=== PATIENT | female | born 1970 | race Caucasian/White ===

== ENCOUNTER 2024-03-20 15:41 | Outpatient (CLI) | payer OTHER, SELFPAY ==
--- NOTE | ~2024-03-20 | MR_ITS ---
EXAMINATION: MR foot LT wo con DATE: 03/20/2024 16:29 INDICATION: Left foot pain TECHNIQUE: Magnetic resonance imaging (MRI) of the left fore/mid foot was performed without intraveno us contrast. Sequences included sagittal T1-weighted FSE, sagittal fluid sensitive FSE STIR, coronal PD-weighted FS FSE, coronal T1-weighted FSE, axial PD-weighted FS FSE, and axial PD-weighted FSE. COMPARISON: None FINDINGS: 25 degrees hallux valgus. Alignment is otherwise normal. Chronic osteotomy/bunionectomy at the medial head of the first metatarsal with scarring and a few foci of susceptibility artifact in the overlyin g soft tissues. Bone marrow signal is normal with no fracture or pathologic marrow replacing process. Mild osteoarthritis at the first metatarsophalangeal joint with subarticular cystic change along its articulation with the tibial sesamoid. There is mild thickening and increased signal of the medial c ollateral ligament complex at the second metatarsophalangeal joint. There is also a tear of the plant ar plate at the base of the second proximal phalanx. There is mild surrounding soft tissue edema. Rem aining plantar plates and the collateral ligament complex at the third-fifth metatarsophalangeal join ts and at the interphalangeal joints are normal. The flexor and extensor tendons are normal. No joint effusions, tenosynovitis, bursitis or other abnormal fluid collections. Intrinsic musculature of the foot is unremarkable. IMPRESSION: 1. Tear of the plantar plate at the base of the second metatarsal and partial tear of the medial ever ateral ligament complex at the second metatarsophalangeal joint. 2. 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 Reviewed, dictated and finalized at location A. IMPRESSION: 1. Tear of the plantar plate at the base of the second metatarsal and partial t ear of the medial collateral ligament complex at the second metatarsophalangeal joint. 2. 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
== END 2024-03-20 15:42 | disposition home or self-care (01) ==
PROVIDERS: PCP Internal Medicine; Visit Provider Podiatrist Foot & Ankle Surgery
DX: M20.12 Hallux valgus (acquired), left foot (principal); S93.692A Other sprain of left foot, initial encounter; X58.XXXA Exposure to other specified factors, initial encounter
CPT/HCPCS: 73718

== ENCOUNTER 2024-12-12 14:17 | Outpatient (CLI) | payer OTHER, SELFPAY ==
[2024-12-12 15:40] LABS: Basophils Percent Auto 0.3 % (0.2-1.2); Eosinophils Absolute Auto 0.1 K/mm3 (0-0.3); Hematocrit 37.3 % (37.0-47.0); Hemoglobin 12.2 g/dL (12.0-15.0); Immature Granulocyte Absolute 0.02 K/mm3 (0.00-0.031); Immature Granulocyte Percent A 0.3 % (0-0.5); Lymphocytes Absolute Auto 2.06 K/mm3 (0.9-3.2); Lymphocytes Percent Auto 35.9 % (18.3-44.2); Mean Corpuscular HGB Conc 32.7 g/dl (32-36); Mean Corpuscular Hemoglobin 28.2 pg (26-34); Mean Corpuscular Volume 86.1 fl (80-100); Mean Platelet Volume 10.3 fl (7.4-10.4); Monocytes Absolute Auto 0.5 K/mm3 (0.1-0.6); Monocytes Percent Auto 8.2 % (2.6-8.5); Neutrophils Absolute Auto 3.1 K/mm3 (1.3-6.7); Neutrophils Percent Auto 54.3 % (45.5-73.1); Platelet Count Result 208 k/mm3 (150-375); Red Blood Count 4.33 M/mm3 (4.2-5.4); White Blood Count 5.7 K/mm3 (4.5-10.0)
[2024-12-12 16:12] LABS: Alanine Aminotransferase 20 U/L (6-35); Albumin Level 3.9 g/dL (3.5-5.1); Alkaline Phosphatase 80 U/L (38-126); Anion Gap 10 mmol/L (4-12); Aspartate Amino Transferase 24 U/L (14-36); Bilirubin,Total 1.3 mg/dL (0.2-1.3); Blood Urea Nitrogen 14 mg/dL (7-17); Carbon Dioxide 25 mmol/L (22-30); Chloride 103 mmol/L (98-107); Cholesterol 115 mg/dL (0-200); Estimated Glomerular Filt Rate > 60; Glucose 158 mg/dL (65-110); HDL Direct 42 mg/dL; Potassium 3.7 mmol/L (3.4-5.0); Sodium 138 mmol/L (137-145); Triglycerides 505 mg/dL (<150)
--- OUTSIDE RECORDS SUMMARY | 2024-12-12 16:15 | XMS_ITS | Clinical Summary ---
Author Organization [facility] Address [address] [place] [address] Phone Care Team Providers Care Hairspring Truing Inspector Name Role Phone MARILU ELIAS D.O Unavailable [phone] Reason for Visit and Chief Complaint CHART UPDATE Plan of Treatment No Plan of Treatment Recorded Assessments Includes: Assessments from this encounter No Assessments Recorded Medical Equipment - Implanted Devices Includes: Current Devices No Medical Equipment Recorded Medications Includes: Medications discussed during this encounter and other current Medications Current Medications (continue as prescribed) Singulair 10 MG OR TABS 02/17/2011 Provider: Diagnosis: Last Documented On 02/17/2011 9:51AM By EDUARDO STAFFORD ; [facility] Past Medications on file Ortho-Cyclen (28) 0.25-35 MG-MCG OR TABS 02/17/2011 - 05/18/2011 Provider: SANAM NEVAREZ NP-BC Diagnosis: Last Documented On 1 10:04AM By SANAM COBB RANI- ; [facility] Ibuprofen 800 MG OR TABS 02/17/2011 - 03/19/2011 Provi shelia: SANAM BLOCK-BC Diagnosis: Last Documented On 1 10:04AM By SANAM COBB CALVIN ; [facility] Ortho-Cyclen (28) 0.25-35 MG-MCG OR TABS 02/11/2010 - 02/06/2011 Provider: SANAM NEVAREZ NP-BC Diagnosis: Last Documented On 0 11:04AM By SANAM COBB CALVIN ; [facility] Medications Administered Includes: Administered Medications from this encounter No Administered Medications Recorded Results Includes: Results discussed during this encounter No Results Recorded For Specified Dates History of Present Illness Includes: History of Present Illness from this encounter ELISEO CORTES is a 39 year old female. 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 [employer] 10/22/2009 Last Documented On 0 10:18AM ; [facility] [facility] Sexually active with 1 partners in the l ast year 10/22/2009 Last Documented On 0 10:18AM ; [facility] Alcohol 10/22/2009 Last Documented On 0 10:18AM ; [facility] Caffeine use 10/22/2009 Last Documented On 0 10:18AM ; [facility] Daily tea consumption was four cups per day 10/22/2009 Last Documented On 0 10:18AM ; [facility] Drug use by a sexual partner does not in clude intravenous drug use 10/22/2009 Last Documented On 0 10:18AM ; [facility] Educational level: grade 10/22/2009 Last Documented On 0 10:18AM ; [facility] [employer] [facility] In grade 13-16 (college) 10/22/2009 Last Documented On 0 10:18AM ; [facility] Marital history 10/22/2009 Last Documented On 0 10:18AM ; [facility] Partner has not had a STD in the past ye ar 10/22/2009 Last Documented On 0 10:18AM ; [facility] Patient does not report having sex when she didn't want to 10/22/2009 Last Documented On 0 10:18AM ; [facility] Patient has not had sex unde r the influence of alcohol or drugs in the last year 10/22/2009 Last Documented On 0 10:18AM ; [facility] Sexual history : painful intercourse Last Documented On 0 10:18AM ; [facility] Sexual partner has not had o ther partners while in relationship with patient 10/22/2009 Last Documented On 0 10:18AM ; [facility] Sexual partner has not had sex with pros titutes 10/22/2009 Last Documented On 0 10:18AM ; [facility] Sexually active 10/22/2009 Last Documented On 0 10:18AM ; [facility] The racial background 10/22/2009 Last Documented On 0 10:18AM ; [facility] The racial background is 10/22 Last Documented On 0 10:18AM ; [facility] Using condoms 10/22/2009 Last Documented On 0 10:18AM ; [facility] Smoking Status Unknown Procedures and Surgical History Includes: Procedures from this encounter Procedures Code Diagnosis Performing Provider Service L ocation Service Date history of hepatitis B vaccine Last Documented On 0 10:18AM ; [facility] Medical History Includes: Medical History addressed during this encounter Description Last Updated LMP: 200810/22/2009 Last Documented On 0 10:18AM ; [facility] A breast self-exam was performed 010 Last Documented On 0 10:18AM ; [facility] A Pap smear was performed 10/22/2009 Last Documented On 0 10:18AM ; [facility] An HIV test was not performed 10/22/2009 Last Documented On 0 10:18AM ; [facility] Chlamydia 10/22/2009 Last Documented On 0 10:18AM ; [facility] Last pap smear date 200810/22/2009 Last Documented On 0 10:18AM ; [facility] Oral contraceptives 10/22/2009 Last Documented On 0 10:18AM ; [facility] Previous hospitalizations [facility]GERY IN 1998,POLYPECTOMY FROM UTERUS IN 200310/22/2009 Last Documented On 0 10:18AM ; [facility] Previously diagnosed with a STD 10/22/19 10 Last Documented On 0 10:18AM ; [facility] Taking OTC medications ASPIRIN 0 Last Documented On 0 10:18AM ; [facility] Family History Includes: Family History addressed during this encounter Description Last Updated Family history of Diabetes 10/22/2009 Last Documented On 0 10:18AM ; [facility] Review of Systems Includes: Review of Systems from this encounter No Review of Systems Recorded Mental Status Includes: Mental Status from this encounter No Mental Status Recorded Functional Status Includes: Functional Status from this encounter No Functional Status Recorded Physical Exam Includes: Physical Exam from this encounter No Physical Exam Recorded Allergies Includes: Active Allergies No Known Allergies Encounters Encounter Provider Location Date Check-In Time Check-Out Time Diagnosis CHART UPDATE SANAM COBB [facility] EMBEDDED PROCESSOR 0 10:08AM 11:59PM Clinical Notes Includes: Clinical Notes from this encounter No Clinical Notes Recorded
--- OUTSIDE RECORDS SUMMARY | 2024-12-12 16:15 | XMS_ITS | Clinical Summary ---
Author Organization [facility] Address [address] [place] [id number] Care Team Providers Care Online Producer Name Role Phone Lewis Santillan DO Primary Care Provider [phone] Allergies No known active allergies Medications atorvastatin 20 MG tablet Take 1 tablet by mouth daily. 3 02/03/2019 Active metFORMIN 500 MG tablet Take 500 mg by mouth 2 (two) times daily with meals. Active omega-3 fatty acid 500 MG capsule Take 500 mg by mouth 2 (two) times a day. 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 02/15/2019 Family History Medical History Relation Comments Cancer Father prostate Cancer Maternal Aunt breast Diabetes Maternal Aunt Cancer Maternal Grandmother lung Diabetes Mother Relation Status Comments Father Maternal Aunt Maternal Grandmother Mother Social History Tobacco Use Types Packs/Day Years Used Date Smoking Tobacco: Never Smokeless Tobacco: Never Alcohol Use Standard Drinks/Week Comments No 0 (1 standard drink = 0.6 oz pur e alcohol) AUDIT-C Answer Date Recorded Frequency of Alcohol Consumption Never 04/01/2019 Average Number of Drinks Not on file 019 Frequency of Binge Drinking Not on file 10/2018 Comments Unknown Sex and Gender Information Value Date Recorded Sex Assigned at Not on file Legal Sex Female 7:17 PM CDT Gender Identity Not on file Sexual Orientation Not on file Last Filed Vital Signs Vital Sign Reading Time Taken Comments Blood Pressure 128/82 02/15/2019 1:07 PM CDT Pulse 79 02/15/2019 1:07 PM CDT Temperature 36.9 C (98.5 F) 02/15/2019 1:07 PM CDT Respiratory Rate 16 02/15/2019 1:07 PM CDT Oxygen Saturation 98% 02/15/2019 1:07 PM CDT Inhaled Oxygen Concentration - - Weight 78.9 kg (174 lb) 02/15/2019 1:07 PM CDT Height 152.4 cm (5') 02/15/2019 1:07 PM CDT Body Mass Index 33.98 02/15/2019 1:07 PM CDT Plan of Treatment Health Maintenance Due Date Last Done Comments Colorectal Cancer Screening Colonoscopy (10 Years) 1968 Annual Physical 1971 Diabetes: Retinopathy Eye Exam 1986 Hepatitis C 1986 DTaP, Tdap and Td Vaccines (1 - Tdap) 1987 Hepatitis B Vaccines (1 of 3 - 19+ 3-dose series) 1987 Mammogram Screening 2008 Pneumococcal Vaccine: Pediatrics (0 to 5 Years) and At-Risk Patients (6 to 64 Years) (2 of 2 - PCV) 06/09/2019 06/09/2018 COVID-19 Vaccine ( - season) 2024 08/17/2021, 01/13/2021, 12/23/2020 Influenza Adult (#1) 2024 06/30/2020, 06/09/20 18 Hemoglobin A1C 07/06/2024 01/05/2024, 04/02, 02/24/2018, Additional history exists Kidney Health Evaluation 01/04/2025 01/05/2024 Lipid Panel 01/04/2025 01/05/2024, 04/0 01/2024, 04/23/2022, Additional history exists Zoster Vaccines Completed 11/28/2020, 06/30/2020 Meningococcal B Vaccine Aged Out No l onger eligible based on patient's age to complete this topic Meningococcal Vaccine Aged Out No beverly diana eligible based on patient's age to complete this topic RSV Immunizations Under 20 Months Aged Out No longer eligible based on patient's age to complete this topic Procedures Procedure Name Priority Date/Time Associated Diagnosis Comments LIPOPROTEIN, LDL CHOL, DIRECT Routine 01/05/2024 2:01 PM CDT HEMOGLOBIN, GLYCOSYLATED Routine 01/05/2024 2:01 PM CDT Type 2 diabetes mellitus without complication from Last 3 Months or Most Recently Relevant to Health Maintenance Results * (ABNORMAL) HEMOGLOBIN, GLYCOSYLATED (01/05/2024 2:01 PM CDT) HGB A1C 6.4(H) <5.7 % 01/05/2024 6:03 PM CDT [facility] Comment: INCREASED RISK OF DIABETES <5.7% NON-DIABETES 5.7-6.4% INCREASED RISK FOR FUTURE DIABETES > OR = 6.5 CONSISTENT WITH DIABETES STANDARDS OF MEDICAL CARE IN DIABETES-2010 DIABETES CARE, 33(SUPP 1): S1-S61,2010 ESTIMATED AVG GLUCOSE 137 mg/dL 01/05/2024 6:03 PM CDT [facility] 01/05/2024 2:01 PM CDT us Lewis Santillan MD LABORATORY Final Result Performing Organization Address City/[facility] Co de Phone Number [facility] [address] [place] [address], [place] [phone] * LIPOPROTEIN, LDL CHOL, DIRECT (01/05/2024 2:01 PM CDT) DIRECT LDL 37 <100 MG/DL 01/05/2024 4:05 PM CDT [facility] Comment: LDL OPTIMAL <100 LDL NEAR OPTIMAL 100-129 LDL BORDERLINE HIGH 130-159 LDL HIGH 160-189 LDL VERY HIGH >=190 01/05/2024 2:01 PM CDT us Lewis Santillan MD LABORATORY Final Result Performing Organization Address City/[facility]/ZIP Co de Phone Number [facility] [address] [place] [address], [place] [phone] from Last 3 Months or Most Recently Relevant to Health Maintenance Insurance [facility] Care Teams Online Producer Relationship Specialty Start Date End Date Lewsi Santillan DO [address] [place] [address] PCP - General FAMILY PRACTICE 02/07/19
--- OUTSIDE RECORDS SUMMARY | 2024-12-12 16:15 | XMS_ITS | Clinical Summary ---
Author Organization [facility] Address [address] [place] [address] Phone Care Team Providers Care Terminal Clerk Name Role Phone MARILU ELIAS D.O Unavailable [phone] Reason for Visit and Chief Complaint gynecologic annual exam - The Chief Complaint is: ANNUAL Plan of Treatment - OTHER - Last Documented On 02/11/2010 11:05AM ; [facility] Follow-up 1 year/prn Ortho-Cyclen (28) 0.25-35 MG-MCG TABS, 1 daily, 90 days, 3 refills - Last Documented On 02/11/2010 11:05AM ; [facility] ? SCREEN MAMMOGRAM NECRadiology/*MAMMOGRAM: Mammogram - Last Documented On 02/11/2010 11:05AM ; [facility] ? Cervical Pap SmearIn office procedures/*Clia Waived Labs: Pap Smear Taken - Last Documented On 02/11/2010 11:05AM ; [facility] ? SCREEN MAL NEOP-RECTUMIn office procedures/*Clia Waived Labs: *FIT Test (Fecal Occult Test) - Last Documented On 02/11/2010 11:05AM ; [facility] - Follow-up visit 1 year or as needed - Last Documented On 02/11/2010 11:05AM ; [facility] Pt to get fasting lipid profile at lab in [place] - rx given. - Last Documented On 02/11/2010 11:05AM ; [facility] Pending Tests Order Diagnosis Results Due Ordering P rovider In office procedures - *Clia Waived Labs Pap Smear Taken SCREEN MAL NEOP-CERVIX 02/25/10 SANAM BLOCK-BC Last Documented On 0 11:04AM ; [facility] In office procedures - *Clia Waived Labs *FIT Test (Fecal Occult Test) SCREEN MAL NEOP-RECTUM 02/25/10 SANAM COBB WHNP-BC Last Documented On 0 11:04AM ; [facility] Radiology @ other - *MAMMOGRAPHY Mammogram SCREEN MAMMOGRAM NEC 02/25/10 SANAMAMBROSIO KIM JEAN WHNP-BC Last Documented On 0 11:06AM ; [facility] Instructions to patient Instructions for patient : B reast Self Exam discussed Last Documented On 0 10:42AM ; [facility] Lose weight Last Documented On 0 10:53AM ; [facility] Education and Decision Aids were provided during visit for: Patient Education: Daily jose cium and vitamin D Last Documented On 0 10:42AM ; [facility] Patient Education: weight be aring exercise Last Documented On 0 10:53AM ; [facility] Assessments Includes: Assessments from this encounter Findings - Normal routine history and physical - Last Documented On 02/11/2010 11:05AM ; [facility] - Routine pelvic exam - Last Documented On 02/11/2010 11:05AM ; [facility] - Screening Malig. Neoplasm Rectum - Last Documented On 02/11/2010 11:05AM ; [facility] Instructions Includes: Instructions from this encounter Instructions to patient Instructions for patient : B reast Self Exam discussed Last Documented On 0 10:42AM ; [facility] Lose weight Last Documented On 0 10:53AM ; [facility] Education and Decision Aids were provided during visit for: Patient Education: Daily jose cium and vitamin D Last Documented On 0 10:42AM ; [facility] Patient Education: weight be aring exercise Last Documented On 0 10:53AM ; [facility] Medical Equipment - Implanted Devices Includes: Current Devices No Medical Equipment Recorded Medications Includes: Medications discussed during this encounter and other current Medications New / Renewed during this visit SANAM COBB NP-BC on 02/11/2010 Ortho-Cyclen (28) 0.25-35 MG-MCG OR TABS Provider: SANAM GARDNERB C 90 day supply: 90, 3 refills Diagnosis: Pharmacy: [facility] - [id number] [place], [address] - Last Documented On 0 11:04AM By SANAM GROVE ; [facility] Current Medications (continue as prescribed) Singulair 10 MG OR TABS 02/17/2011 Provider: Diagnosis: Last Documented On 02/17/2011 9:51AM By EDUARDO STAFFORD ; [facility] Past Medications on file Ortho-Cyclen (28) 0.25-35 MG-MCG OR TABS 02/17/2011 - 05/18/2011 Provider: SANAM SIMPSON Diagnosis: Last Documented On 1 10:04AM By SANAM GROVE ; [facility] Ibuprofen 800 MG OR TABS 02/17/2011 - 03/19/2011 Provi shelia: SANAM GROVE Diagnosis: Last Documented On 1 10:04AM By SANAM GROVE ; [facility] Medications Administered Includes: Administered Medications from this encounter No Administered Medications Recorded Vital Signs Includes: Vital Signs from this encounter Vital Name 02/11/2010 10:30A Blood Pressure Sitting R 122/70 Height (in) 59.5 Weight (lb) 182 Body Mass Index (kg/m2) 36.1 Body Surface Area (m2) 1.8 Last Documented: On 02/11/2010 10:44A M ; [facility] Results Includes: Results discussed during this encounter No Results Recorded For Specified Dates History of Present Illness Includes: History of Present Illness from this encounter ELISEO CORTES is a 39 year old female. - Feeling fine. - Perimenopausal concerns very emotional et michael very easy - No female genital symptoms - No vaginal dryness - Normal menses - No menopausal concerns - No reproductive system complaints - No vaginal discharge - No hot flashes - No sexual complaints Social History Description Last Updated Non-smoker 02/11/2010 Last Documented On 0 11:05AM ; [facility] Not sexually active 02/11/2010 Last Documented On 0 11:05AM ; [facility] Social history unchanged got Last Documented On 0 11:05AM ; [facility] Smoking Status Unknown Procedures and Surgical History Includes: Procedures from this encounter Procedures Code Diagnosis Performing Provider Service L ocation Service Date cervical Pap smear 86620 Last Documented On 0 10:42AM ; [facility] a fecal occult blood test was negative 65020 Last Documented On 0 10:42AM ; [facility] history of abnormal Pap smear of cervix Long time ago Last Documented On 0 10:49AM ; [facility] Surgical History Last Updated No history of appendectomy 02/11/2010 Last Documented On 0 11:05AM ; [facility] No history of cholecystectomy 02/11/2010 Last Documented On 0 11:05AM ; [facility] No history of Loop electrode excision of cervix (LEEP) 02/11/2010 Last Documented On 0 11:05AM ; [facility] No history of total abdominal hysterecto my 02/11/2010 Last Documented On 0 11:05AM ; [facility] No history of tubal ligation 02/11/2010 Last Documented On 0 11:05AM ; [facility] No history of vaginal hysterectomy 02/11 Last Documented On 0 11:05AM ; [facility] Medical History Includes: Medical History addressed during this encounter Description Last Updated Contraception: mononessa 02/11/2010 Last Documented On 0 11:05AM ; [facility] History of allergic rhinitis 02/11/2010 Last Documented On 0 11:05AM ; [facility] History of cervical dysplasia 02/11/2010 Last Documented On 0 11:05AM ; [facility] LMP: 01/31/2010 02/11/2010 Last Documented On 0 11:05AM ; [facility] No history of dysfunctional uterine blee ding 02/11/2010 Last Documented On 0 11:05AM ; [facility] No history of human papilloma virus infe ction 02/11/2010 Last Documented On 0 11:05AM ; [facility] No history of urinary tract infection Last Documented On 0 11:05AM ; [facility] No history of vaginitis 02/11/2010 Last Documented On 0 11:05AM ; [facility] Recent change in medical history 010 Last Documented On 0 11:05AM ; [facility] Last mammogram date: 02/16/2009 0 Last Documented On 0 11:05AM ; [facility] Last pap smear date 02/10/2009 02/11/2010 Last Documented On 0 11:05AM ; [facility] Result: normal 02/11/2010 Last Documented On 0 11:05AM ; [facility] Result: normal 02/11/2010 Last Documented On 0 11:05AM ; [facility] Family History Includes: Family History addressed during this encounter Description Last Updated Family history changed 02/11/2010 Last Documented On 0 11:05AM ; [facility] Family history of diabetes mellitus moth er 02/11/2010 Last Documented On 0 11:05AM ; [facility] Family history of malignant neoplasm of the large intestine father 02/11/2010 Last Documented On 0 11:05AM ; [facility] No family history of malignant female br east neoplasm 02/11/2010 Last Documented On 0 11:05AM ; [facility] No family history of malignant neoplasm of the ovary 02/11/2010 Last Documented On 0 11:05AM ; [facility] Review of Systems Includes: Review of Systems from this encounter Systemic: Not feeling poorly (malaise). No fever, no chills, no night sweats, and no recent weight change. Breasts: No breast lump, no nipple discharge, and no pain in breast. Genitourinary: No hematuria and no increase in urinary frequency. No dysuria. No genital lesion and normal menses. Mental Status Includes: Mental Status from this encounter No Mental Status Recorded Functional Status Includes: Functional Status from this encounter No Functional Status Recorded Physical Exam Includes: Physical Exam from this encounter Allergies Includes: Active Allergies No Known Allergies Encounters Encounter Provider Location Date Check-In Time Check-Out Time Diagnosis [employer] EXAM SANAM COBB [facility] [employer] 0 10:35AM 11:05AM Routine History and Physical,Scre ening Julien. Neoplasm Rectum,Routin e Pelvic Exam Clinical Notes Includes: Clinical Notes from this encounter No Clinical Notes Recorded
--- OUTSIDE RECORDS SUMMARY | 2024-12-12 16:15 | XMS_ITS | Data Portability ---
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 [employer] variances may occur. Despite proofreading, typographical errors may occur. Occasional wrong-word or s ound-a-like substitutions may have occurred due to the inherent limitations of voice recording. Read the chart carefully and recognize, using context, where substitutions have occurred. Not available 09/20/2023 12:25:10 03/11/2024 03/11/2024 This note is dictated and transcribed by [employer]. [employer] variances may occur. Despite proofreading, typographical errors may occur. Occasional wrong-word or 'sqjwl-f-djcx' substitutions may have occurred due to the inherent limitations of voice recording. Read the chart carefully and recognize, using context, where substitutions have occurred. Not available 03/11/2024 16:39:15 Plan of Treatment Reminders Order Date Submit Date Provider Last Modified By Organization Details Last Modified Time Details Appointments None recorded. Lab glycohemogl obin, total, blood 2022 023 [facility] (Lab), [address] [place], [address], 3 15:10:17 CMP, serum or plasma 2022 023 [facility] (Lab), [address] [place], [address], 3 11:22:24 lipid panel, serum 2022 023 [facility] (Lab), [address] [place], [address], 3 11:22:29 Referral None recorded. Procedures None recorded. Surgeries None recorded. Imaging XR, foot, 3 or more view 2023 024 [facility], [address], [place], [address], 4 14:46:50 MRI, foot, w/o contrast - pain sub 2nd met head and MTPJ [address] [facility], [address], [place], [address], 4 19:39:36 XR, foot, 3 or more view 2022 023 [facility] [place], [address], [place], [address], 3 12:29:15 XR, foot, 3 or more view 2022 023 [facility] [place], [address], [place], [address], 3 12:29:15 Medication Orders diclofenac sodium 75 mg tablet,zeeshan yed release 2023 024 [facility], [address] [place] [address], [address], [place], [place], [id number], 4 17:22:08 diclofenac sodium 75 mg tablet,zeeshan yed release 2022 023 [facility], [address], [address], [place], [place], [id number], 3 18:33:57 Patient TargetsNo targets recorded. Patient InstructionsNo instructions recorded. Reason for Referral None Reported. Results Created Date Observation Date Name Description Value Unit Range Abnormal Flag Note LastModifiedBy Organization Detail LastModifiedTime 11/17/1911/17/2022 HEMOG LOBIN A1C HA1C 6.0 % 4.0-6. 0 Diabe alejandra Scree kuldeep Crite kerrie: <5.7% Consi stent with absen ce of diabe alejandra 5.7-6 .4% Consi stent with incre ased risk for diabe alejandra (pred iabet es) >OR=6 .5% Consi stent with diabe alejandra REFER ENCE: Diabe alejandra Care 2016, 39(Henao ppl.1 ):s13 -s22 Not Available [facility] (Lab) [address] [place], [address], 11/17/2022 18:37:29 11/17/19 23 11/17/2022 COMPR EHENS ELYSIA METAB OLIC PANEL carbon dioxide 27 mmol/ L 22-[address] [facility] (Lab) [address] [place], [address], 11/17/2022 13:24:33 11/17/19 23 11/17/2022 COMPR EHENS ELYSIA METAB OLIC PANEL sodium 138 mmol/ L 137-[address] [facility] (Lab) [address] [place], [address], 11/17/2022 13:24:33 11/17/19 23 11/17/2022 COMPR EHENS ELYSIA METAB OLIC PANEL potassium 3.8 mmol/ L 3.5-5. [address] [facility] (Lab) [address] [place], [address], 11/17/2022 13:24:33 11/17/19 23 11/17/2022 COMPR EHENS ELYSIA METAB OLIC PANEL chloride 101 mmol/ L 98-[address] [facility] (Lab) [address] [place], [address], 11/17/2022 13:24:33 11/17/19 23 11/17/2022 COMPR EHENS ELYSIA METAB OLIC PANEL anion gap 13.8 mmol/ L 14-22 low Not Available [facility] (Lab) [address] [place], [address], 11/17/2022 13:24:33 11/17/19 23 11/17/2022 COMPR EHENS ELYSIA METAB OLIC PANEL glucose 105 mg/dL 70-99 high Not Available [facility] (Lab) [address] [place], [address], 11/17/2022 13:24:33 11/17/19 23 11/17/2022 COMPR EHENS ELYSIA METAB OLIC PANEL BUN 13 mg/dL 8-[address] [facility] (Lab) [address] [place], [address], 11/17/2022 13:24:33 11/17/19 23 11/17/2022 COMPR EHENS ELYSIA METAB OLIC PANEL creatinine 0.48 mg/dL 0.66-1 .25 low Not Available [facility] (Lab) [address] [place], [address], 11/17/2022 13:24:33 11/17/19 23 11/17/2022 COMPR EHENS ELYSIA METAB OLIC PANEL GFR >60 Refer ence Range : Black ge GFR Healt hy Adult : >60 mL/mi n/1.7 3 m2 Chron ic Kidne y Disea se: 15-60 mL/mi n/1.7 3 m2 Kidne y Failu re: <15/m L/min /1.73 m2 www.n iddk. nih.g ov The MDRD study equat ion has not been valid ated in child reina <18 years of age; pregn ant women ; the elder ly >85 years of age; or in some racia l or ethni c subgr oups, such as Hispa nics. Outsi de the valid ated andrew eters , estim ated GFR is less accur ate, requi ring clini jose judgm ent on a case- by-ca se basis . Clini jose inter preta tion for other races and ages must be made by the clini kandice. The MDRD study equat ion has not been valid ated for the evalu ation of serum creat inine relat ed to nutri ada l statu s or medic ation usage . For perso ns <18 years of age, a pedia tric GFR calcu lator is avail able on the [facility] websi te: https ://ainsley camargo.alice jarvis.o rg/pr ofess ional s/kdo qi/gf r_cal culat or Not Available [facility] (Lab) [address] [place], [address], 11/17/2022 13:24:33 11/17/19 23 11/17/2022 COMPR EHENS ELYSIA METAB OLIC PANEL alkaline phosphatase 81 U/L 38-126 Not Available [facility] (Lab) [address] [place], [address], 11/17/2022 13:24:33 11/17/19 23 11/17/2022 COMPR EHENS ELYSIA METAB OLIC PANEL alanine aminotransfe rase 28 U/L 0-35 Not Available [facility] (Lab) [address] [place], [address], 11/17/2022 13:24:33 11/17/19 23 11/17/2022 COMPR EHENS ELYSIA METAB OLIC PANEL aspartate aminotransfe rase 30 U/L 15-37 Not Available [facility] (Lab) [address] [place], [address], 11/17/2022 13:24:33 11/17/19 23 11/17/2022 COMPR EHENS ELYSIA METAB OLIC PANEL bilirubin, total 2.10 mg/dL 0.20-1 .30 high Not Available [facility] (Lab) [address] [place], [address], 11/17/2022 13:24:33 11/17/19 23 11/17/2022 COMPR EHENS ELYSIA METAB OLIC PANEL calcium 9.1 mg/dL 8.4-10 .[address] [facility] (Lab) [address] [place], [address], 11/17/2022 13:24:33 11/17/19 23 11/17/2022 COMPR EHENS ELYSIA METAB OLIC PANEL total protein 6.8 g/dL 6.3-8. [address] [facility] (Lab) [address] [place], [address], 11/17/2022 13:24:33 11/17/19 23 11/17/2022 COMPR EHENS ELYSIA METAB OLIC PANEL albumin 4.3 g/dL 3.4-5. [address] [facility] (Lab) [address] [place], [address], 11/17/2022 13:24:33 11/17/19 23 11/17/2022 COMPR EHENS ELYSIA METAB OLIC PANEL globulin 2.5 g/dL 2.6-4. 2 low Not Available [facility] (Lab) [address] [place], [address], 11/17/2022 13:24:33 11/17/19 23 11/17/2022 COMPR EHENS ELYSIA METAB OLIC PANEL A/G ratio 1.7 ratio 1.0-2. [address] [facility] (Lab) [address] [place], [address], 11/17/2022 13:24:33 11/17/19 23 11/17/2022 LIPID PANEL LDL cholesterol, calculated 26 mg/dL 0-130 NIH ALEX NSUS REPOR T RECOM MENDA TIONS FOR LDL: ADULT CHILD LOW RISK <130 <110 (OPTI MAL LDL) <100 ----- BORDE RLINE : 130-1 59 ----- HIGH RISK: >160 >130 A TRIGL YCERI DE RESUL T >400 INVAL IDATE S THE CALCU LATIO N FOR LDL FRACT IONAT ION - THE LDL RESUL T WILL NOT BE REPOR EMILIE. Not Available [facility] (Lab) [address] [place], [address], 11/17/2022 13:24:22 11/17/19 23 11/17/2022 LIPID PANEL cholesterol 113 mg/dL 140-19 9 low NIH ALEX NSUS RECOM MENDA TION FOR JACKY STERO L: ADULT CHILD LOW RISK: <200 <170 BORDE RLINE : <200- 239 ----- HIGH RISK: >240 >[address] [facility] (Lab) [address] [place], [address], 11/17/2022 13:24:22 11/17/19 23 11/17/2022 LIPID PANEL triglyceride s 237 mg/dL 0-150 high NIH ALEX NSUS REPOR T RECOM MENDA TION FOR TRIGL YCERI DESIREE: ADULT CHILD LOW RISK: <150 ----- BODER LINE: 150-1 99 ----- HIGH RISK: >200 ----- Not Available [facility] (Lab) [address] [place], [address], 11/17/2022 13:24:22 11/17/19 23 11/17/2022 LIPID PANEL HDL cholesterol 40 mg/dL 40- Not Available [facility] (Lab) [address] [place], [address], 11/17/2022 13:24:22 11/17/19 23 11/17/2022 CBC/C OMPLE TE BLD COUNT W/DIF F mean red cell hemoglobin 28.6 pg 27.0-3 3.[address] [facility] (Lab) [address] [place], [address], 11/17/2022 12:56:18 11/17/19 23 11/17/2022 CBC/C OMPLE TE BLD COUNT W/DIF F white blood cells 6.2 x10'3 /uL 4.2-10 .[address] [facility] (Lab) [address] [place], [address], 11/17/2022 12:56:18 11/17/19 23 11/17/2022 CBC/C OMPLE TE BLD COUNT W/DIF F red blood cells 4.44 x10'6 /uL 3.80-5 .[address] [facility] (Lab) [address] [place], [address], 11/17/2022 12:56:18 11/17/19 23 11/17/2022 CBC/C OMPLE TE BLD COUNT W/DIF F hemoglobin 12.7 g/dL 12.0-1 5.[address] [facility] (Lab) [address] [place], [address], 11/17/2022 12:56:18 11/17/19 23 11/17/2022 CBC/C OMPLE TE BLD COUNT W/DIF F hematocrit 38.5 % 35.7-4 5.[address] [facility] (Lab) [address] [place], [address], 11/17/2022 12:56:18 11/17/19 23 11/17/2022 CBC/C OMPLE TE BLD COUNT W/DIF F mean red cell volume 86.7 fL 82.0-9 9.[address] [facility] (Lab) [address] [place], [address], 11/17/2022 12:56:18 11/17/19 23 11/17/2022 CBC/C OMPLE TE BLD COUNT W/DIF F mean RBC HGB concentratio n 33.0 g/dL 31.0-3 6.[address] [facility] (Lab) [address] [place], [address], 11/17/2022 12:56:18 11/17/19 23 11/17/2022 CBC/C OMPLE TE BLD COUNT W/DIF F red cell distribution width 12.0 % 11.8-1 5.[address] [facility] (Lab) [address] [place], [address], 11/17/2022 12:56:18 11/17/19 23 11/17/2022 CBC/C OMPLE TE BLD COUNT W/DIF F platelets 192 x10'3 /uL 150-40 [address] [facility] (Lab) [address] [place], [address], 11/17/2022 12:56:18 11/17/19 23 11/17/2022 CBC/C OMPLE TE BLD COUNT W/DIF F mean platelet volume 10.1 fL 9.0-12 .[address] [facility] (Lab) [address] [place], [address], 11/17/2022 12:56:18 11/17/19 23 11/17/2022 CBC/C OMPLE TE BLD COUNT W/DIF F neutrophils 56.9 % 39.0-7 2.[address] [facility] (Lab) [address] [place], [address], 11/17/2022 12:56:18 11/17/19 23 11/17/2022 CBC/C OMPLE TE BLD COUNT W/DIF F lymphocytes 34.8 % 16.0-4 7.[address] [facility] (Lab) [address] [place], [address], 11/17/2022 12:56:18 11/17/19 23 11/17/2022 CBC/C OMPLE TE BLD COUNT W/DIF F monocytes 6.7 % 5.0-12 .[address] [facility] (Lab) [address] [place], [address], 11/17/2022 12:56:18 11/17/19 23 11/17/2022 CBC/C OMPLE TE BLD COUNT W/DIF F eosinophils 1.1 % 1.0-7. [address] [facility] (Lab) [address] [place], [address], 11/17/2022 12:56:18 11/17/19 23 11/17/2022 CBC/C OMPLE TE BLD COUNT W/DIF F basophils 0.3 % 0.0-2. [address] [facility] (Lab) [address] [place], [address], 11/17/2022 12:56:18 11/17/19 23 11/17/2022 CBC/C OMPLE TE BLD COUNT W/DIF F immature granulocytes 0.2 % 0.00-0 .[address] [facility] (Lab) [address] [place], [address], 11/17/2022 12:56:18 11/17/19 23 11/17/2022 CBC/C OMPLE TE BLD COUNT W/DIF F neutrophils, absolute count 3.55 x10'3 /uL 1.5-8. [address] [facility] (Lab) [address] [place], [address], 11/17/2022 12:56:18 11/17/19 23 11/17/2022 CBC/C OMPLE TE BLD COUNT W/DIF F lymphocytes, absolute count 2.17 x10'3 /uL 1.07-3 .[address] [facility] (Lab) [address] [place], [address], 11/17/2022 12:56:18 11/17/19 23 11/17/2022 CBC/C OMPLE TE BLD COUNT W/DIF F monocytes, absolute count 0.42 x10'3 /uL 0.29-0 .[address] [facility] (Lab) [address] [place], [address], 11/17/2022 12:56:18 11/17/19 23 11/17/2022 CBC/C OMPLE TE BLD COUNT W/DIF F eosinophils, absolute count 0.07 x10'3 /uL 0.02-0 .[address] [facility] (Lab) [address] [place], [address], 11/17/2022 12:56:18 11/17/19 23 11/17/2022 CBC/C OMPLE TE BLD COUNT W/DIF F basophils, absolute count 0.02 x10'3 /uL 0.01-0 .[address] [facility] (Lab) [address] [place], [address], 11/17/2022 12:56:18 11/17/19 23 11/17/2022 CBC/C OMPLE TE BLD COUNT W/DIF F immature granulocytes ,absolute 0.01 x10'3 /uL 0.00-0 .[address] [facility] (Lab) [address] [place], [address], 11/17/2022 12:56:18 11/17/19 23 11/17/2022 CBC/C OMPLE TE BLD COUNT W/DIF F nucleated red blood cells 0.0 % -0 Not Available [facility] (Lab) [address] [place], [address], 11/17/2022 12:56:18 11/17/19 23 11/17/2022 CBC/C OMPLE TE BLD COUNT W/DIF F NRBC# 0.00 x10'3 /uL Not Available [facility] (Lab) [address] [place], [address], 11/17/2022 12:56:18 07/22/20 23 07/22/2023 COMPR EHENS ELYSIA METAB OLIC PANEL sodium 137 mmol/ L 137-14 [address] [facility] (Lab) [address] [place], [address], 07/22/2023 11:22:24 07/22/20 23 07/22/2023 COMPR EHENS ELYSIA METAB OLIC PANEL potassium 4.3 mmol/ L 3.5-5. [address] [facility] (Lab) [address] [place], [address], 07/22/2023 11:22:24 07/22/20 23 07/22/2023 COMPR EHENS ELYSIA METAB OLIC PANEL chloride 102 mmol/ L 98-107 Not Available [facility] (Lab) [address] [place], [address], 07/22/2023 11:22:24 07/22/20 23 07/22/2023 COMPR EHENS ELYSIA METAB OLIC PANEL carbon dioxide 27 mmol/ L 22-[address] [facility] (Lab) [address] [place], [address], 07/22/2023 11:22:24 07/22/20 23 07/22/2023 COMPR EHENS ELYSIA METAB OLIC PANEL anion gap 12.3 mmol/ L 14-22 low Not Available [facility] (Lab) [address] [place], [address], 07/22/2023 11:22:24 07/22/20 23 07/22/2023 COMPR EHENS ELYSIA METAB OLIC PANEL glucose 120 mg/dL 70-99 high Not Available [facility] (Lab) [address] [place], [address], 07/22/2023 11:22:24 07/22/20 23 07/22/2023 COMPR EHENS ELYSIA METAB OLIC PANEL BUN 13 mg/dL 8-[address] [facility] (Lab) [address] [place], [address], 07/22/2023 11:22:24 07/22/20 23 07/22/2023 COMPR EHENS ELYSIA METAB OLIC PANEL creatinine 0.57 mg/dL 0.66-1 .25 low Not Available [facility] (Lab) [address] [place], [address], 07/22/2023 11:22:24 07/22/2007/22/2023 COMPR EHENS ELYSIA METAB OLIC PANEL GFR >60 Refer ence Range : Black ge GFR Healt hy Adult : >60 mL/mi n/1.7 3 m2 Chron ic Kidne y Disea se: 15-60 mL/mi n/1.7 3 m2 Kidne y Failu re: <15/m L/min /1.73 m2 www.n iddk. nih.g ov The MDRD study equat ion has not been valid ated in child reina <18 years of age; pregn ant women ; the elder ly >85 years of age; or in some racia l or ethni c subgr oups, such as Jovanna nics. Outsi de the valid ated andrew eters , estim ated GFR is less accur ate, requi ring clini jose judgm ent on a case- by-ca se basis . Clini jose inter preta tion for other races and ages must be made by the clini kandice. The MDRD study equat ion has not been valid ated for the evalu ation of serum creat inine relat ed to nutri ada l statu s or medic ation usage . For perso ns <18 years of age, a pedia tric GFR calcu lator is avail able on the [facility] websi te: https ://ainsley w.alice jarvis.o rg/pr ofess ional s/kdo qi/gf r_cal culat or Not Available [facility] (Lab) [address] [facility] [place], [address], 07/22/2023 11:22:24 07/22/20 23 07/22/2023 COMPR EHENS ELYSIA METAB OLIC PANEL alkaline phosphatase 89 U/L 38-126 Not Available [facility] (Lab) [address] [facility] [place], [address], 07/22/2023 11:22:24 07/22/20 23 07/22/2023 COMPR EHENS ELYSIA METAB OLIC PANEL alanine aminotransfe rase 21 U/L 0-35 Not Available [facility] (Lab) [address] [place], [address], 07/22/2023 11:22:24 07/22/20 23 07/22/2023 COMPR EHENS ELYSIA METAB OLIC PANEL aspartate aminotransfe rase 25 U/L 15-37 Not Available [facility] (Lab) [address] [place], [address], 07/22/2023 11:22:24 07/22/20 23 07/22/2023 COMPR EHENS ELYSIA METAB OLIC PANEL bilirubin, total 1.30 mg/dL 0.20-1 .[address] [facility] (Lab) [address] [place], [address], 07/22/2023 11:22:24 07/22/20 23 07/22/2023 COMPR EHENS ELYSIA METAB OLIC PANEL calcium 9.3 mg/dL 8.4-10 .[address] [facility] (Lab) [address] [place], [address], 07/22/2023 11:22:24 07/22/20 23 07/22/2023 COMPR EHENS ELYSIA METAB OLIC PANEL total protein 6.8 g/dL 6.3-8. [address] [facility] (Lab) [address] [place], [address], 07/22/2023 11:22:24 07/22/20 23 07/22/2023 COMPR EHENS ELYSIA METAB OLIC PANEL albumin 4.1 g/dL 3.4-5. [address] [facility] (Lab) [address] [place], [address], 07/22/2023 11:22:24 07/22/20 23 07/22/2023 COMPR EHENS ELYSIA METAB OLIC PANEL globulin 2.7 g/dL 2.6-4. [address] [facility] (Lab) [address] [place], [address], 07/22/2023 11:22:24 07/22/2007/22/2023 COMPR EHENS ELYSIA METAB OLIC PANEL A/G ratio 1.5 ratio 1.0-2. [address] [facility] (Lab) [address] [place], [address], 07/22/2023 11:22:24 07/22/20 23 07/22/2023 LIPID PANEL cholesterol 136 mg/dL 140-19 9 low NIH ALEX NSUS RECOM MENDA TION FOR JACKY STERO L: ADULT CHILD LOW RISK: <200 <170 BORDE RLINE : <200- 239 ----- HIGH RISK: >240 >[address] [facility] (Lab) [address] [place], [address], 07/22/2023 11:22:29 07/22/2007/22/2023 LIPID PANEL triglyceride s 279 mg/dL 0-150 high NIH ALEX NSUS REPOR T RECOM MENDA TION FOR TRIGL YCERI DESIREE: ADULT CHILD LOW RISK: <150 ----- BODER LINE: 150-1 99 ----- HIGH RISK: >200 ----- Not Available [facility] (Lab) [address] [place], [address], 07/22/2023 11:22:29 07/22/2007/22/2023 LIPID PANEL HDL cholesterol 45 mg/dL 40- Not Available [facility] (Lab) [address] [place], [address], 07/22/2023 11:22:29 07/22/20 23 07/22/2023 LIPID PANEL LDL cholesterol, calculated 35 mg/dL 0-130 NIH ALEX NSUS REPOR T RECOM MENDA TIONS FOR LDL: ADULT CHILD LOW RISK <130 <110 (OPTI MAL LDL) <100 ----- BORDE RLINE : 130-1 59 ----- HIGH RISK: >160 >130 A TRIGL YCERI DE RESUL T >400 INVAL IDATE S THE CALCU LATIO N FOR LDL FRACT IONAT ION - THE LDL RESUL T WILL NOT BE REPOR EMLIIE. Not Available [facility] (Lab) [address] [place], [address], 07/22/2023 11:22:29 07/22/2007/22/2023 HEMOG LOBIN A1C HA1C 6.3 % 4.0-6. 0 high Diabe alejandra Scree kuldeep Crite kerrie: <5.7% Consi stent with absen ce of diabe alejandra 5.7-6 .4% Consi stent with incre ased risk for diabe alejandra (pred iabet es) >OR=6 .5% Consi stent with diabe alejandra REFER ENCE: Diabe alejandra Care 2016, 39(Henao ppl.1 ):s13 -s22 [address] Available [facility] (Lab) [address] [place], [address], 07/22/2023 15:10:17 11/17/19 23 11/17/2022 CT, neck, soft tissu e, w/ contr ast [facility] [address] [place] [address] [phone] Patien t Name: WILMAN BANEGAS Access ion #: [id number] Sex: F : 1969 2 Locati on: [facility] Attend ing Physic godfrey: LOVE SANTILLAN Orderi ng Physic godfrey: LOVE SANTILLAN Exam Date: 023 12:50 PM Exam Name: CT SOFT TISSUE NECK W Admitt ing Diagno sis(es ): RADIOL OGY REPORT - FINAL EXAM: CT SOFT TISSUE NECK W HISTOR Y: lesion on neck 52-yea r-old female with bilate ral neck palpab le abnorm alitie s, someti mes painfu l. COMPAR MARIA DEL CARMEN: None availa ble. TECHNI QUE: Helica l CT images of the neck were perfor med with 100 ml Isovue [address] Sagitt al and barcenas l reform atted images were obtain ed. This CT exam was perfor med using one or more of the follow ing dose reduct ion techni ques: Automa emilie exposu re contro l, adjust ment of the mA and/or kV accord ing to patien t size, or use of iterat elysia recons tructi on techni que. FINDIN GS: No radiol ogical ly signif icant cervic al adenop athy or mass. Skin marker s are Page 1 of 3 [facility] WILMAN BANE[facility]AS Access ion #: [id number] Sex: F : 1969 2 Exam Date: 023 12:50 PM Exam Name: CT SOFT TISSUE NECK W Admitt ing Diagno sis(es ): presen t in the bilate ral subman dibula r region s denoti ng the locati ons of the patien t's palpab le abnorm alitie s, and these are superf icial to normal appear ing subman dibula r glands (image s [id number], series 201). The airway is patent . The vocal cords are symmet sly. No abnorm al thicke kuldeep of the epiglo ttis. There are puncta te calcif icatio ns in the bilate ral palati ne tonsil s. The palati ne and lingua l tonsil s are hypert rophic withou t signif icant airway narrow ing. The paroti d glands , subman dibula r glands , and thyroi d are unrema rkable . The partia lly-vi sualiz ed parana jaylan sinuse s, middle ear spaces , and mastoi d air cells are clear. The bilate ral caroti d arteri es, verteb ral arteri es, and software intern al jugula r veins are patent . Bovine aortic arch is incide ntally noted. The lung apices are clear. 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 There is modera te to severe degene rative disc diseas e and mild facet arthro andrea. The AP dimens ion of the spinal canal measur es 6 mm at C6-C7. There is signif icant neural forami nal stenos is bilate rally at C6-C7. IMPRES [place]: 1. Skin marker s are superf icial to the bilate ral subman dibula r glands , both of which appear normal . 2. No radiol ogical ly signif icant cervic al adenop athy or mass. 3. Hypert rophy of the palati ne and lingua l tonsil s withou t signif icant airway narrow ing. 4. 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 There is also signif icant neural forami nal stenos is bilate rally at C6-C7. Recomm end follow -up noncon trast MRI of the cervic al spine for better charac teriza tion as there is likely mass effect on the cervic al spinal cord at 1 or more levels . Page 2 of 3 [facility] t Name: WILMAN BANEGAS Access ion #: [id number] Sex: F : 1969 2 Exam Date: 12:50 PM Exam Name: CT SOFT TISSUE NECK W Admitt ing Diagno sis(es ): Create d and electr onical ly signed by: Stanford guerrero MD Signed Date: 4:15 PM (CT) Dictat ed by: Stanford guerrero MD DD: 023 4:15 PM (CT) DT: 2/16/2 023 4:15 PM (CT) Page 3 of [id number] [facility] (Imaging) [address], [place], [address], 11/30/2022 09:00:24 12/03/1912/01/2022 MRI, cervi jose spine , w/o contr ast [facility] [address] [facility] [place] [place] [address] [phone] Patien t Name: WILMAN BANEGAS Access ion #: [id number] Sex: F : 1969 1 Locati on: RAD Attend ing Physic godfrey: LOVE SANTILLAN Orderi ng Physic godfrey: LOVE SANTILLAN Exam Date: 12/02/19 4:50 PM Exam Name: MRI C SPINE WO Admitt ing Diagno sis(es ): RADIOL OGY REPORT - FINAL EXAM: MRI C SPINE WO HISTOR Y: neck pain 52-yea r-old female with neck pain and left hand numbne ss. COMPAR MARIA DEL CARMEN: CT scan of the soft tissue neck dated 2022. TECHNI QUE: Multip lanar multis equenc e noncon trast MR images of the cervic al spine were perfor med. FINDIN GS: No fractu re or listhe sis in the cervic al spine. 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 No eviden ce of cerebe llar tonsil lar ectopi a. No abnorm al signal in the cervic al spinal cord. There are cystic change s of the base of the odonto id. Page 1 of [address] [facility] Patitremayne t Name: WILMAN BANEGAS Access ion #: [id number] Sex: F : 1969 1 Exam Date: 12/02/19 4:50 PM Exam Name: MRI C SPINE WO Admitt ing Diagno sis(es ): C2-C3: No signif icant discop athy, spinal canal stenos is, or neural forami nal stenos is bilate rally. C3-C4: There is mild loss of disc height . There is a circum ferent ial broad disc bulge with endpla te hypert rophy. There is bilate ral facet hypert rophy. The AP dimens ion of the spinal canal measur es 7.3 mm. There is mild mass effect on the anteri or margin of the cervic al spinal cord at this level. No signif icant neural forami nal stenos is bilate rally. C4-C5: There is mild loss of disc height . There is a mild circum ferent ial broad disc bulge. There is bilate ral facet hypert rophy, greate r on the left. The AP dimens ion of the spinal canal measur es 7.5 mm. There is mild flatte kuldeep of the anteri or margin of the cervic al spinal cord at this level. There is mild bilate ral neural forami nal stenos is. C5-C6: There is a circum ferent ial broad disc bulge with endpla te hypert rophy, most promin ent in the right prefor aminal region . The AP dimens ion of the spinal canal measur es 8.5 mm in the midlin e. There is mild mass effect on the right anteri or margin of the cervic al spinal cord at this level. There is bilate ral facet hypert rophy. There is right uncina te proces s hypert rophy. There is mild right and no signif icant left neural forami nal stenos is. C6-C7: There is disc desicc ation and loss of disc height . There is a circum ferent ial broad disc bulge, most promin ent quality control director iorly, measur ing 4 mm AP in the midlin e. The AP dimens ion of the spinal canal measur es 5.1 mm. There is mass effect on the anteri or and quality control director ior margin s of the cervic al spinal cord at this level. There is bilate ral facet and uncina te proces s hypert rophy. There is modera te to severe bilate ral neural forami nal stenos is. Page 2 of 3 [facility] Name: WILMAN BANEGAS Access ion #: [id number] Sex: F : 1969 1 Exam Date: 12/02/19 4:50 PM Exam Name: MRI C SPINE WO Admitt ing Diagno sis(es ): IMPRES [place]: 1. No fractu re of the cervic al spine. 2. 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 There is mass effect on the cervic al spinal cord at multip le levels , greate st at C6-C7. Recomm end spinal surger y consul tation if not alread y obtain ed. 3. Degene rative disc diseas e and facet arthro andrea with signif icant neural forami nal stenos is bilate rally at C6-C7. These findin gs may corres pond to upper extrem ity radicu lar sympto ms in the C7 nerve root distri bution s. 4. Cystic change s of the base of the odonto id may be due to degene rative change s of the preden carlie joint. Rheuma toid arthri tis can cause this appear ance. Create d and electr onical ly signed by: Stanford gurerero MD Signed Date: 12/03/19 8:03 AM (CT) Dictat ed by: Stanford guerrero MD (CT) (CT) Page 3 of [address] (Imaging) [address] [place], [address], 12/12/2022 12:36:18 09/20/20 23 XR, foot, 3 or more view No observ ation record ed. harsha [facility] [place] [address], [place], [address], 09/20/2023 12:28:06 09/20/20 23 XR, foot, 3 or more view No observ ation record ed. harsha [facility] [place] [address], [place], [address], 09/20/2023 12:29:09 03/21/20 24 03/20/2024 MRI, foot, w/o contr ast No observ ation record ed. [email or web address] [facility] [address], [place], [address], 03/25/2024 10:28:27 03/27/20 XR, foot, 3 or more view No observ ation record ed. [email or web address] [facility] [place] [address], [place], [address], 03/27/2024 14:46:47 Result Notes None recorded. 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 2363959 Active Not Available [facility] 3 05:38:30 Postopera tive care Active 2021 Not Available [facility] 3 05:38:30 Serum cholester ol very high 354075790 Active 2017 Not Available [facility] 3 05:38:30 Radiother apy follow-up 163635511 Active Not Available [facility] 3 05:38:30 Abdominal pain 47345267 Completed Not Available [facility] 3 08:56:55 Trichomon al cerviciti s 49222195 Active Not Available [facility] 3 05:38:30 Gastroeso phageal reflux disease 860244420 Completed Not Available [facility] 3 08:56:55 Edema 022852857 Completed Not Available [facility] 3 08:56:55 Pure hyperchol esterolem ia 333042550 Active Not Available [facility] 3 05:38:30 Breasts asymmetri jose 455457086 Active Not Available [facility] 3 05:38:31 Vaginal discharge 624296874 Completed Not Available [facility] 3 08:56:55 Lesion of neck 682096302 Active 2022 Not Available [facility] 3 05:38:31 Paresthes ia of foot 654321414 Active 2021 Not Available [facility] 3 05:38:31 Pain in left foot 04030237890 9107 Active 2021 Not Available [facility] 3 05:38:31 Pain in left knee Completed Not Available [facility] 3 08:56:55 Arthritis 7159797 Active 2022 Not Available [facility] 3 05:38:31 Bunion 818599471 Active 2021 Not Available [facility] 3 05:38:31 Bunion 437096274 Active 2021 Not Available [facility] 3 05:38:31 Nausea 155185495 Completed Not Available [facility] 3 08:56:56 Tendiniti s of foot 573260349 Active 2021 Not Available [facility] 3 05:38:31 Acute urinary tract infection 187541484 Active 2021 Not Available [facility] 3 05:38:31 Type 2 diabetes mellitus 59974944 Active 2021 Not Available [facility] 3 05:38:31 Painful scar 294142643 Active 2021 Not Available [facility] 3 05:38:31 Carpal tunnel syndrome 85272711 Active Not Available [facility] 3 05:38:31 Allergic rhinitis 04076439 Active 2021 Not Available [facility] 3 05:38:31 Urinary tract infectiou s disease 15871357 Active 2021 Not Available [facility] 3 05:38:31 Rhinitis 59139652 Completed Not Available [facility] 3 08:56:57 Hemorrhoi ds 62401151 Completed Not Available [facility] 3 08:56:57 Snoring 65172588 Active Not Available [facility] 3 05:38:31 Diabetes mellitus 38310245 Active Not Available [facility] 3 05:38:31 COVID-19 247331984 Active 2021 Not Available [facility] 3 05:38:31 Nail bed infection 59116546 Active 2021 Not Available [facility] 3 05:38:31 Spinal stenosis in cervical region 25885685 Active 2022 Not Available [facility] 3 05:38:31 Essential hypertens ion 36930015 Active 2022 Not Available [facility] 3 05:38:31 Type 2 diabetes mellitus without complicat ion 030691837 Active 2022 Not Available [facility] 3 05:38:31 Metatarsa lgia 85074049 Active 2022 Chucho Odonnell DPM [address], [place], [address] , [facility] [employer] [facility] [employer] 3 18:33:14 Dysuria 66471053 Active 2023 Cynthia Trinidad RN null, MD [employer] [facility] [employer] 4 11:25:07 Metatarsa lgia 02498985 Active 2023 Chucho Odonnell DPM [address], [address], [place], [address] , [facility] [employer] [facility] [employer] 4 16:38:32 Hammer toe 965991961 Active 2023 Chucho Odonnell DPM [address], [address], [place], [address] , [facility] [employer] [facility] [employer] 4 16:38:38 Problem Notes None recorded. Procedures Surgical History Date Name Laterality Status Provider Name and Address Organization Details Recorded Time 05/12/20 21 Most Recent Mammogram completed Not Available [facility] 11/30/2022 08:53:49 01/21/20 21 Date of Last Pap Smear completed Not Available [facility] 11/30/2022 08:53:49 05/02/20 19 Carpal tunnel surgery completed Not Available [facility] 11/30/2022 08:53:50 04/18/20 19 Laparoscopic cholecystectomy completed Not Available [facility] 11/30/2022 08:53:50 09/20/20 17 Orthopedic Surgery completed Not Available [facility] 11/30/2022 08:53:50 05/02/20 11 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 Not Available [facility] 11/30/2022 08:53:50 other completed Not Available [facility] 11/30/2022 08:53:50 Imaging Results Imaging Date Name Status LastModified by Organiz ation Details LastModified Time 11/17/2022 CT, neck, soft tissue, w/ contrast completed [id number] [address] [facility] (Imaging) [address] [place], [address], 11/30/2022 09:00:24 12/01/2022 MRI, cervical spine, w/o contrast completed [email or web address] [facility] (Imaging) [address] [place], [address], 12/12/2022 12:36:18 09/20/2023 XR, foot, 3 or more view completed harsha [facility] [place] [address], [place], [address], 09/20/2023 12:28:06 09/20/2023 XR, foot, 3 or more view completed harsha [facility] [place] [address], [place], [address], 09/20/2023 12:29:09 03/20/2024 MRI, foot, w/o contrast completed harsha [address], [address], 03/25/2024 10:28:27 03/27/2024 XR, foot, 3 or more view completed [email or web address] [facility] [place] [address], [place], [address], 03/27/2024 14:46:47 Procedure Notes None recorded. Medical Equipment None Reported. Allergies No known drug allergies Medications Name Sig Start Date Stop Date Status Note LastModified by Organization Details LastModified Time amoxicilli n 500 mg capsule TAKE 1 CAPSULE BY MOUTH THREE TIMES DAILY FOR 7 DAYS active Not Available Not Available No t Available metformin 500 mg tablet TAKE 1 TABLET BY MOUTH TWICE DAILY active Not Available Not Available No t Available neomycin-p olymyxin-h ydrocort 3.5 mg/mL-10,0 00 unit/mL-1 % ear solution 06/17 completed Not Available Not Available Not Available atorvastat in 20 mg tablet TAKE 1 TABLET BY MOUTH ONCE DAILY active Not Available Not Available No t Available Anusol-HC 2.5 % rectal cream with applicator apply to rectum q 4-6 hours 12/16 completed Not Available Not Available Not Available atorvastat in 10 mg tablet TAKE 1 TABLET BY MOUTH ONCE DAILY active Not Available Not Available No t Available azithromyc in 250 mg tablet TAKE 2 TABLETS BY MOUTH ON DAY 1, AND THEN TAKE 1 TABLET BY MOUTH ONCE A DAY ON DAY 2 THROUGH DAY 5 03/11 completed Not Available Not Available Not Available ibuprofen 800 mg tablet Take 1 tablet 3 times a day by oral route. active Not Available Not Available No t Available hydrocodon e 5 mg-acetami nophen 325 mg tablet 03/03 completed Not Available Not Available Not Available meloxicam 15 mg tablet Take 1 tablet every day by oral route as needed for 30 days. 05/02 completed Not Available Not Available Not Available metronidaz ole 0.75 % (37.5 mg/5 gram) vaginal gel Insert 1 applicat orful every day by vaginal route for 5 days. 02/20 completed Not Available Not Available Not Available Diflucan 150 mg tablet Take 1 tablet every day by oral route for 1 day. 12/23 completed Not Available Not Available Not Available ciprofloxa samira 500 mg tablet Take 1 tablet every 12 hours by oral route for 7 days. active Not Available Not Available No t Available tramadol 50 mg tablet TAKE 1 TABLET BY MOUTH EVERY 8 HOURS NEEDED FOR PAIN 11/08 completed Not Available Not Available Not Available amoxicilli n 500 mg tablet Take 1 tablet 3 times a day by oral route for 7 days. 01/08 completed Not Available Not Available Not Available cefadroxil 500 mg capsule 02/22 completed Not Available Not Available Not Available estradiol 1 mg tablet Take 1 tablet every day by oral route for 90 days. active Not Available Not Available No t Available Flagyl 500 mg tablet Take 2 tablets twice a day by oral route for 1 day. 06/06 completed Not Available Not Available Not Available cephalexin 500 mg capsule TAKE 1 CAPSULE BY MOUTH THREE TIMES DAILY 11/08 completed Not Available Not Available Not Available diclofenac sodium 75 mg tablet,del ayed release TAKE 1 TABLET BY MOUTH TWICE DAILY DIRECTED active Not Available Not Available No t Available cephalexin 500 mg tablet Take 1 tablet 3 times a day by oral route. 11/08 completed Not Available Not Available Not Available etodolac 400 mg tablet Take 1 tablet twice a day by oral route. active Not Available Not Available No t Available montelukas t 10 mg tablet take one tablet by mouth once a day 03/03 completed Not Available Not Available Not Available estradiol 0.5 mg tablet TAKE 1 TABLET BY MOUTH ONCE DAILY 05/02 completed taking 1mg - per die drawing checker Not Available Not Available Not Available ibuprofen 600 mg tablet 06/17 completed Not Available Not Available Not Available estradiol 0.01% (0.1 mg/gram) vaginal cream active Not Available Not Available Not Available methylpred nisolone 4 mg tablets in a dose pack TAKE BY MOUTH DIRECTED ON INSIDE OF PACKAGE 07/05 completed Not Available Not Available Not Available albuterol sulfate HFA 90 mcg/actuat ion aerosol inhaler INHALE 2 PUFFS BY MOUTH EVERY 4 HOURS NEEDED FOR WHEEZING 03/11 completed Not Available Not Available Not Available Percocet 5 mg-325 mg tablet TAKE 1 TAB PO Q 6HRS PRN PAIN 11/08 completed Not Available Not Available Not Available Cortispori n-TC 3.3 mg-3 mg-10 mg-0.5 mg/mL ear drops,susp ension 3drops both ears TID x 1 wk 03/03 completed Not Available Not Available Not Available cefdinir 300 mg capsule Take 1 capsule twice a day by oral route for 10 days. active Not Available Not Available No t Available amoxicilli n 500 mg-potassi um clavulanat e 125 mg tablet 02/20 completed Not Available Not Available Not Available Pneumovax- 23 25 mcg/0.5 mL injection syringe 08/29 completed Not Available Not Available Not Available nitrofuran toin monohydrat e/macrocry stals 100 mg capsule TAKE 1 CAPSULE BY MOUTH TWICE DAILY FOR 5 DAYS 03/11 completed Not Available Not Available Not Available chlorhexid ine gluconate 0.12 % mouthwash 06/17 completed Not Available Not Available Not Available zinc 2021 active Not Available Not Available Not Avai lable Fish Oil 1200mg twice a day 07/27 completed Not Available Not Available Not Available multivitam in 2021 active Not Available Not Available Not Avai lable omeprazole 20 mg tablet,del ayed release Take 1 tablet every day by oral route for 30 days. 04/18 completed Not Available Not Available Not Available OneTouch Delica Lancets 33 gauge 07/27 completed Not Available Not Available Not Available OneTouch Verio test strips 07/27 completed Not Available Not Available Not Available QNASL 80 mcg/actuat ion nasal aerosol spray [place] 2 spray(s) each nostril daily 03/19 completed Not Available Not Available Not Available Flonase Allergy Relief 50 mcg/actuat ion nasal spray,susp ension [place] 2 sprays every day by intranas al route. 07/27 completed Not Available Not Available Not Available Shingrix (PF) 50 mcg/0.5 mL intramuscu lar suspension , kit PHARMACI ST ADMINIST ERED IMMUNIZA TION ADMINIST ERED AT TIME OF DISPENSI NG 01/08 completed Not Available Not Available Not Available Fluarix Quad (PF) 60 mcg (15 mcg x 4)/0.5 mL IM syringe 08/29 completed Not Available Not Available Not Available Fluzone Quad (PF) 60 mcg (15 mcg x 4)/0.5 mL IM syringe PHARMACI ST ADMINIST ERED IMMUNIZA TION ADMINIST ERED AT TIME OF DISPENSI NG 01/08 completed Not Available Not Available Not Available BinaxNOW COVID-19 Ag Self Test kit Use as Directed on the Package 11/08 completed Not Available Not Available Not Available Paxlovid 300 mg (150 mg x 2)-100 mg tablets in a dose pack Take 3 tablets twice a day by oral route for 5 days. active Not Available Not Available No t Available Vitals Date Recorded Body mass index (BMI) Body height Heart rate Body temperature Body weight Systolic blood pressure Diastolic blood pressure Provider Name and Address Organization Details Last Updated DateTime 3 35 kg/m2 152.4 cm 83 /min 97.9 [degF] 46621.0 3 g 142 mm[Hg] 86 mm[Hg] Not Available [facility] 3 08:55:28 Date Recorded Body height Body weight Body temperature Heart rate Oxygen saturation Oxygen saturation in Arterial blood by Pulse oximetry Systolic blood pressure Diastolic blood pressure Provider Name and Address Organization Details Last Updated DateTime 3 152.4 cm 73190.8 1 g 97.9 [degF] 88 /min 98 % 98 % 126 mm[Hg] 76 mm[Hg] Isidra Castellano RN [facility] [employer] 3 15:48:22 Date Recorded Body height Body mass index (BMI) Body weight Heart rate Respiratory rate Oxygen saturation Oxygen saturation in Arterial blood by Pulse oximetry Systolic blood pressure Diastolic blood pressure Provider Name and Address Organization Details Last Updated DateTime 3 152.4 cm 35.5 kg/m2 83468.8 1 g 74 /min 14 /min 98 % 98 % 144 mm[Hg] 81 mm[Hg] Leonor Fofana MD [facility] 3 17:09:25 Date Recorded Body height Body mass index (BMI) Body weight Heart rate Respiratory rate Oxygen saturation Oxygen saturation in Arterial blood by Pulse oximetry Systolic blood pressure Diastolic blood pressure Provider Name and Address Organization Details Last Updated DateTime 4 152.4 cm 35.5 kg/m2 71971.8 1 g 74 /min 14 /min 98 % 98 % 143 mm[Hg] 76 mm[Hg] Leonor Fofana [employer] [facility] [employer] 4 17:09:15 Date Recorded Body height Body mass index (BMI) Body weight Heart rate Respiratory rate Body temperature Oxygen saturation Oxygen saturation in Arterial blood by Pulse oximetry Systolic blood pressure Diastolic blood pressure Provider Name and Address Organization Details Last Updated DateTime 4 152.4 cm 33.2 kg/m2 58519.7 g 83 /min 14 /min 97.9 [degF] 97 % 97 % 130 mm[Hg] 80 mm[Hg] Kianna Miliannshaw [employer] 4 15:54:44 Social History Question Answer Notes LastModified by Organization Details LastModified Time Tobacco Smoking Status Never Smoker Julieth cam [employer] [facility] [employer] 09/14/2023 17:05:25 Do You Have An Advance Directive? No [id number] Information not available 11/30/2022 What Is Your Level Of Alcohol Consumption? Occasional [id number] Information not available 11/30/2022 Do You Wear A Helmet When Biking? No Information not available 09/14/2023 What Is Your Level Of Caffeine Consumption? Occasional [id number] Information not available 11/30/2022 How Much Tobacco Do You Chew? None [id number] Information not available 11/30/2022 In The 14 Days Before Symptom Onset, Have You Had Close Contact With A Laboratory-conf irmed COVID-19 While That Case Was Ill? No Information not available 09/14/2023 In The 14 Days Before Symptom Onset, Have You Had Close Contact With A Person Who Is Under Investigation For COVID-19 While That Person Was Ill? No Information not available 09/14/2023 What Type Of Diet Are You Following? REGULAR [id number] Information not available 11/30/2022 Which Illicit Or Recreational Drugs Have You Used? None Information not available 09/14/2023 Do You Or Have You Ever Used E-cigarettes Or Vape? Never Used Electronic Cigarettes Information not available 09/14/2023 What Is The Highest Grade Or Level Of School You Have Completed Or The Highest Degree You Have Received? [id number] Information not available 09/14/2023 What Is Your Occupation? [employer] Information not available 09/14/2023 Have There Been Any Changes To Your Family Or Social Situation? No Information not available 09/14/2023 What Is The Fluoride Status Of Your Home? Unknown Information not available 09/14/2023 Are There Any Guns Present In Your Home? No Information not available 09/14/2023 Do You Use Insect Repellent Routinely? No Information not available 09/14/2023 Where Do You Live? SingleLevelHouse Information not available 09/14/2023 Do You Have A Medical Power Of Apartment Community Assistant Manager? No Information not available 09/14/2023 What Was The Date Of Your Most Recent Tobacco Screening? 05/02/2023 Information not available 09/14/2023 Have You Ever Been Counseled For Unhealthy Alcohol Use? No Information not available 09/14/2023 Do You Have Any Pets? Yes Information not available 09/14/2023 What Is Your Relationship Status? Domestic Partner [id number] Information not available 11/30/2022 Do You Use Your Seat Belt Or Car Seat Routinely? Yes Information not available 09/14/2023 Do You Have Smoke And Carbon Monoxide Detectors In Your Home? Yes Information not available 09/14/2023 Are You Passively Exposed To Smoke? Yes Information not available 09/14/2023 Do You Or Have You Ever Used Smokeless Tobacco? Never Used Smokeless Tobacco [id number] Information not available 11/30/2022 Are There Any Smokers In Your House? Yes Boyfriend Smokes Information not available 09/14/2023 How Much Tobacco Do You Smoke? No [id number] Information not available 11/30/2022 What Types Of Sporting Activities Do You Participate In? Shoots Pool Information not available 09/14/2023 Do You Feel Stressed (tense, Restless, Nervous, Or Anxious, Or Unable To Sleep At Night)? [id number] Information not available 09/14/2023 Do You Use Any Illicit Or Recreational Drugs? No Information not available 09/14/2023 Do You Use Sunscreen Routinely? Yes Information not available 09/14/2023 Has Tobacco Cessation Counseling Been Provided? No Not Needed-mirta osorio Smoked Information not available 09/14/2023 How Many Years Have You Smoked Tobacco? 0 Information not available 09/14/2023 Have You Recently Traveled Abroad? No Information not available 09/14/2023 Do You Have Any Dietary Restrictions? No Information not available 09/14/2023 Do You Or Have You Ever Used Any Other Forms Of Tobacco Or Nicotine? No Information not available 09/14/2023 Sex: Female Functional Status Question Answer Note LastModified by Organizat ion Details LastModified Time What is your exercise level? Occasional [id number] Information not available 11/30/2022 Mental Status None recorded. Family History Relationship Description Onset Age of this Age Resolved Age Notes LastModified by Organization Details LastModified Time Mother Diabetes mellitus [id number] Not available 11/30/2022 08:53:52 Mother Hypertensive disorder [id number] Not available 11/30/2022 08:53:52 Father Malignant tumor of prostate Not available 2022 17:05:25 Brother Hypertensive disorder [id number] Not available 11/30/2022 08:53:52 Medical History Condition Response CHEST XRAY N KIDNEY STONES N CARPAL TUNNEL SYNDROME Y MRSA N HISTORY OF DRUG ABUSE N COPD N RADIATION / CHEMOTHERAPY N BLOOD DISEASES N SURGERY N MUMPS N BOWEL PROBLEMS N FAILED BACK SYNDROME N STROKE/TIA N THYROID DISEASE N LYMPHEDEMA N ULCERS N OTHER MODALITIES N CERVICALGIA N TB SKIN TEST N MYOCARDIAL INFARCTION N OBESITY N PARAPELGIA N URINARY/BLADDER/KIDNEY PROBLEMS N Increased Urination N CORONARY ARTERY DISEASE (CAD) N INPATIENT PSYCH CARE N MENIERE'S DISEASE N ADDICTION CONCERNS N CAROTID STENOSIS N ENDOMETRIOSIS N Impotence N PARATHYROID DISEASE N PERIPHERAL VASCULAR DISEASE N MUSCLE,JOINT OR BONE PROBLEMS N DVT N STOMACH ULCERS N GASTROINTESTINAL BLEEDING N BLOOD CLOTS N Difficulty Urinating N PAST HISTORY OF VEHICULAR ACCIDENT N ASTHMA N USE OF NSAIDS N ARTERIAL INSUFFICIENCY N CHF N GI PROBLEMS N Low Testosterone N VISION/EYE PROBLEMS N MALE HYPOGONADISM N TOURETTE'S N ANXIETY DISORDER N CHRONIC EAR INFECTIONS N BIPOLAR DISORDER N CONDUCT DISORDER N OSTEOARTHRITIS N TUBERCULOSIS N DIVERTICULITIS N SLEEP APNEA N ALLERGIES/HAYFEVER N HEART ARRHYTHMIA N PROSTATE N INSOMNIA N PAST MEDICATION HISTORY N EYE PROBLEMS N EDEMA N HYPOTHYROIDISM N CONSTIPATION N CAROTID BLOCKAGE N MOOD DISORDER N BACK / NECK PROBLEMS N MIGRAINES N BREAST PROBLEMS Y POLYCYSTIC OVARIES N FIBROMYALGIA N OSTEOPOROSIS N PERIPHERAL NEUROPATHY N APPENDICITIS N VON WILLIBRAND'S DISEASE N SEASONAL ALLERGIES N HEARTBURN / REFLUX N PLEURISY N AFIB N ADD/ADHD N Bronchoscopy N AUTISM SPECTRUM DISORDER (ASD) N SLEEP DISORDER Y RETINOPATHY N HEADACHES/MIGRAINES N SLEEP STUDY N VASCULAR DISEASE N Blood Disorder N HEART DISEASE/HEART PROBLEMS N DEVELOPMENTAL OR BEHAVIORAL DISORDERS N CLAUDICATION N MULTIPLE SCLEROSIS N PULMONARY FUNCTION TEST N ANESTHESIA COMPLICATIONS N ATRIAL FIBRILLATION N Gall Stones N PULMONARY EMBOLISM N AUTOIMMUNE DISEASE N NERVE DISEASE N BLINDNESS N RHEUMATIC FEVER N BLADDER PROBLEMS N Enlarged Prostate N OTHER # 1 Y POLIO N LUNG DISEASE/DISORDER N Other # 2 Y EAR OR HEARING PROBLEMS N PAST SPINAL SURGERY N SCHIZOPHRENIA N FEMALE PROBLEMS / INFECTIONS N DEPRESSION (INCLUDING POST ) N CHEST CT N RENAL INSUFFICIENCY N BENIGN PROSTATIC HYPERPLASIA N MEASLES N HYPOTENSION N GERD/NAUSEA N EXCESSIVE PERSPIRATION N ANEURYSM N USE OF BLOOD THINNERS N SKIN PROBLEMS N EMPHYSEMA N SHORTNESS OF BREATH N GASTROINTESTINAL DISORDER N PTSD N CATARACTS N CONCUSSION OR SPINAL TRAUMA N ERECTILE DYSFUNCTION N VARICOSITIES N NEUROPATHY N INFERTILITY N AIDS/HIV N FRACTURES N CHEMOTHERAPY / RADIATION N LIVER DISEASE N HYPERTENSION N Deficiency N Metal allergy N BLOOD TRANSFUSION N ANEMIA/BLOOD DISORDER N BRONCHITIS N GLAUCOMA N FOOT PROBLEM N HEART VALVE DISORDERS N CHICKENPOX N BACK INJECTIONS N INFECTIOUS DISEASE N ESRD N PAST INTERVENTIONAL PAIN MANAGEMENT HIST ORY N RHEUMATOID ARTHRITIS N HIGH CHOLESTEROL / HYPERLIPIDEMIA Y HYPERTHYROIDISM N UTI N PVD N EATING DISORDER N NEUROLOGICAL PROBLEMS N CHRONIC PAIN SYNDROME N HAVE YOU BEEN HOSPITALIZED OR SEEN IN [facility] ER IN THE PAST YEAR ? N ATHEROSCLEROSIS N BURSITIS N HERNIATED DISC N DIALYSIS N ECZEMA N HISTORY WITH COMPLICATIONS WITH ANESTHES IA ? N PSYCHOSIS N ARTHRITIS N RESPIRATORY PROBLEMS N PAST HISTORY OF FALL N NO SIGNIFICANT PAST MEDICAL HISTORY N DIABETES, TYPE Y BAD TEETH N ENT N POST LAMINECTOMY SYNDROME N HEPATITIS / LIVER DISEASE N PULMONARY DISEASE N GOUT N ALZHEIMER'S DISEASE N PAIN N Brain Problems N FATIGUE N HERPES N DEMENTIA N SEIZURES/EPILEPSY N PACEMAKER N DIZZINESS N HEAD TRAUMA OR INJURY N KIDNEY DISEASE N SCARLET FEVER N MENTAL DISORDER/ILLNESS N NEUROPSYCHOLOGICAL N CANCER: SPECIFY N CARDIAC ARRHYTHMIA N PNEUMONIA N Gynecological History Statement/Question Response Abnormal Pap N Sexually Active? Y Date of Last Pap Smear 01/20/2021 Current Control Method Hysterectom y Age at Menarche 10 Most Recent Mammogram 05/12/2021 Obstetrics History GPAL:G 0 P 0 0 0 0 Immunizations Vaccine Type Date Status Note Provider Nam e and Address Organization Details Recorded Time influenza, unspecified formulation 3 completed RIVERA Alegria, [facility] [employer] [facility] 08/08/2023 09:19:26 COVID-19, mRNA, LNP-S, PF, 30 mcg/0.3 mL dose 3 completed RIVERA Alegria [facility] [employer] 09/18/2023 09:26:45 COVID-19, mRNA, LNP-S, PF, 30 mcg/0.3 mL dose 1 completed Not Available [facility] 07/25/2023 05:38:31 zoster, unspecified formulation 1 completed Not Available [facility] 07/25/2023 05:38:31 zoster recombinant 0 completed Not Available [facility] 07/25/2023 05:38:31 Influenza, split virus, quadrivalent, preservative 0 completed Not Available [facility] 07/25/2023 05:38:31 Influenza, split virus, quadrivalent, preservative 8 completed Not Available [facility] 07/25/2023 05:38:31 pneumococcal polysaccharide PPV23 8 completed Not Available [facility] 07/25/2023 05:38:32 Tdap 2 completed Not Available [facility] 07/25/2023 05:38:32 COVID-19, mRNA, LNP-S, PF, 30 mcg/0.3 mL dose 2 completed Not Available [facility] 07/25/2023 05:38:32 Influenza, split virus, trivalent, preservative 2 completed Not Available [facility] 07/25/2023 05:38:32 COVID-19, mRNA, LNP-S, PF, 30 mcg/0.3 mL dose 1 completed Not Available [facility] 07/25/2023 05:38:32 COVID-19, mRNA, LNP-S, PF, 30 mcg/0.3 mL dose 1 completed Not Available [facility] 07/25/2023 05:38:31 Past Encounters Encounter ID Performer Location Encounter Start Date Encounter Closed Date Diagnosis/Indication Diagnosis SNOMED-CT Code Diagnosis ICD10 Code Diagnosis Note [id number] [facility] [address] [place] [address] 01/08/2021 00:00:00 01/17/2021 11:01:08 [id number] _ATHENA_M IGRATION_ DEFAULT_1 _1 , 01/19/2021 00:00:00 01/19/2021 17:53:32 [id number] [facility] [address] , [address] [address] 07/05/2021 00:00:00 08/02/2021 20:33:43 [id number] _ATHENA_M IGRATION_ DEFAULT_1 _1 , 12/06/2021 00:00:00 12/06/2021 16:35:01 [id number] _ATHENA_M IGRATION_ DEFAULT_1 _1 , 12/20/2021 00:00:00 12/29/2021 20:50:22 [id number] [facility] [address] , [address] [address] 01/04/2022 00:00:00 01/16/2022 15:25:23 [id number] _ATHENA_M IGRATION_ DEFAULT_1 _1 , 05/09/2022 00:00:00 05/19/2022 08:58:55 [id number] [facility] [address] [address] 05/09/2022 00:00:00 05/10/2022 08:55:29 [id number] _ATHENA_M IGRATION_ DEFAULT_1 _1 , 05/30/2022 00:00:00 05/30/2022 16:28:18 [id number] [facility] Podiatry [address] [address] 06/07/2022 00:00:00 06/07/2022 15:54:40 [id number] _ATHENA_M IGRATION_ DEFAULT_1 _1 , 06/20/2022 00:00:00 06/20/2022 16:46:47 [id number] _ATHENA_M IGRATION_ DEFAULT_1 _1 , 06/27/2022 00:00:00 06/27/2022 16:45:18 [id number] _ATHENA_M IGRATION_ DEFAULT_1 _1 , 07/04/2022 00:00:00 07/05/2022 10:18:13 [id number] _ATHENA_M IGRATION_ DEFAULT_1 _1 , 08/08/2022 00:00:00 08/09/2022 10:07:[id number] [facility] [address] [facility] [address] [address] 11/08/2022 00:00:00 11/08/2022 21:20:42 [id number] Marilu Santillan MD [facility] Internal Med [facility] [address] [facility] [address] [address] 05/02/2023 15:37:16 05/02/2023 16:47:31 Essential hypertension 43507356 I10 Type 2 arsalan betes mellitus without complication 491711791 E11.9 Pure hypercholesterolemia 677969715 E78.00 [id number] Chucho Odonnell DPM [facility] Podiatry [place] [address] [place] [address] 09/14/2023 17:03:46 09/20/2023 15:02:11 Metatarsalgia 60536831 M77.41 M77.42 Dispense metatarsal felt padding to offload met headDiscus sed the need for Powerstep orthotics recommend obtaining theseConti nue supportive shoe gearRice therapyRx diclofenac , educated on side effects of medication at present seek medical attention immediatel y Follow-up in 4 weeks [id number] Chucho Odonnell DPM [facility] Pod[facility] [place] [address] [place] [address] 10/09/2023 17:01:21 11/14/2023 13:00:27 Metatarsalgia 18948286 M77.41 M77.42 Dispense metatarsal felt padding to offload met headDiscus sed the need for Powerstep orthotics recommend obtaining theseConti nue supportive shoe gearRice therapyRx diclofenac , educated on side effects of medication at present seek medical attention immediatel y Follow-up in 4 weeks [id number] Chucho Odonnell DPM [facility] [place] [address] [place] [address] 03/11/2024 15:19:17 03/28/2024 14:12:54 Pain in left foot [id number] 91872 M79.672 obtain MRInegativ e foot x-ray Hammer toe 607383640 M20 .42 2nd toe Metatarsalgia 14643335 M 77.41 M77.42 Dispense metatarsal felt padding to offload met headDiscus sed the need for Powerstep orthotics recommend obtaining theseConti nue supportive shoe gearRice therapyRx diclofenac , educated on side effects of medication at present seek medical attention immediatel y Follow-up in 4 weeks Health Concerns Section Related Observation LastModified by Organization Detai ls LastModified Time None Recorded Concern Status LastModified by Organization Details LastModified Time None Recorded Advance Directives Directive N: Payers Encounter Date Sequence Insurance Name Policy Number Policy Krishna Covered Member ID Krishna Member ID Guarantor Name 05/02/2023 1 [facility] [id number] Wilman Mauro [id number] Wilman Mauro 09/14/2023 1 [facility] [id number] Wilman Mauro [id number] Wilman Mauro 10/09/2023 1 [facility] [id number] Wilman Mauro [id number] Wilman Mauro 03/11/2024 1 [facility] [id number] Wilman Mauro [id number] Wilman Mauro Notes Date Note Type Note Provider Name and Address Organization Details Recorded Time 05/02/2023 text/html Attention no headache or dizziness. Diabetes no polyphagia polydipsia hyperlipidemia she is not losing weight Marilu Santillan MD [address], [address], [place], [address], [employer] 05/02/2023 21:59:57 09/14/2023 text/html . Patient is a 53-year-old female who presents the office with complaints of bilateral foot pain to the plantar aspect of the forefoot. Patient states that when she is walking she has mild pain worse to the sub 2nd metatarsal head bilaterally. Patient denies any open wounds or infection. Patient states when she is at rest it does feel better. Patient denies any other complaints. Chucho Odonnell DPM [address], [address], [place], [address], [employer] 09/20/2023 12:30:11 10/09/2023 text/html Patient returns for followup bilateral foot pain. Patient has had some relief since last visit with offloading. Denies any signs of infection. Pain is worse with standing and walking. Chucho Odonnell DPM [address], [address], [place], [address], [employer] 11/01/2023 13:49:58 03/11/2024 text/html . Patient is a 53-year-old female who returns the office for follow-up on left foot pain. Patient has continued pain under the sub 2nd metatarsal head of the metatarsal. Patient states when she is walking she is sharp pain to palpation. Patient has minor swelling to the area. Patient denies any open wounds or infection. Patient denies any other complaints. Chucho Odonnell DPM [address], [address], [place], [address], [employer] 03/27/2024 14:47:08 OBGyn Episode No OBEpisode recorded.
--- OUTSIDE RECORDS SUMMARY | 2024-12-12 16:15 | XMS_ITS ---
Care Plan - [facility] Created on: December 12, 2024 WILMAN CORTES : 1970 Sex: Female Author Organization [facility] Address [address] [place] [address] Phone Care Team Providers Care X Ray Nurse Name Role Phone MARILU ELIAS D.O Unavailable [phone]
--- OUTSIDE RECORDS SUMMARY | 2024-12-12 16:15 | XMS_ITS | Clinical Summary ---
Author Organization 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 Medications Administered Includes: Administered Medications from this encounter No Administered Medications Recorded Results Includes: Results discussed during this encounter No Results Recorded For Specified Dates History of Present Illness Includes: History of Present Illness from this encounter No History of Present Illness Recorded Social History No Social History Recorded - Smoking Status Unknown Medical History Includes: Medical History addressed during this encounter No Medical History Recorded Family History Includes: Family History addressed during this encounter No Family History Recorded Review of Systems Includes: Review of Systems [...] Location Date Check-In Time Check-Out Time Diagnosis PELVIC W/TVT [facility] [employer] 1 9:11AM 9:53AM Clinical Notes Includes: Clinical Notes from this encounter No Clinical Notes Recorded
--- OUTSIDE RECORDS SUMMARY | 2024-12-12 16:15 | XMS_ITS | Data Portability ---
Author Organization [facility] Address [address] [place] [address] Care Team Providers Care Brake Lining Driller Name Role Phone MARILU SANTILLAN Primary Care Provider FLORENTIN SNEED Porcelain Waxer [phone] Assessment Encounter Date Assessment Date Assessment LastModified by Organization Details LastModified Time 04/01/2024 04/01/2024 vestibular therapy Valium for vestibular suppression 5 mg half tablet b.i.d. 20. See me in 3 weeks arjun Not available 04/14/2024 19:29:09 06/12/2024 06/12/2024 continue current therapy. Get diabetic eye exam. 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 EKG shows a normal sinus rhythm with no clear-cut ischemic change [email or web address] Not available 08/14/2024 23:05:13 12/10/2024 12/10/2024 continue current therapy healthy lifestyle care instructions blood work ordered diagnosis and assessment and plan have been discussed we will try trazodone 50 mg q.h.s. p.r.n. follow up with me in 6 months Not available 12/10/2024 23:04:14 Plan of Treatment Reminders Order Date Submit Date Provider Last Modified By Organization Details Last Modified Time Details Appointments ANY 15 2024 03:15P Claire Santillan MD Not available Not available Not available Lab HbA1c (hemoglob in A1c), blood 2024 025 [facility]kg, [address], [place], [address], 12/12/2024 15:55:22 lipid panel, serum 2024 025 [facility], [address], [place], [address], 12/12/2024 15:55:22 CBC w/ auto diff 2024 025 [facility], [address], [place], [address], 12/12/2024 15:55:22 CMP, serum or plasma 2024 025 [facility], [address], [place], [address], 12/12/2024 15:55:22 HbA1c (hemoglob in A1c), blood 2023 024 [email or web address] In-Office Order, Internal Use Only DO Not Attach Compendium DO Not Attach Compendium, Do Not Delete/merge, [id number] 08/23/2024 10:10:25 Referral physical therapist referral 2023 024 [email or web address] [place], [address], [place], [address], 05/02/2024 12:18:39 Procedures None recorded. Surgeries None recorded. Imaging electroca rdiogram 2023 024 [email or web address] In-Office Order, Internal Use Only DO Not Attach Compendium DO Not Attach Compendium, Do Not Delete/merge, [id number] 08/12/2024 21:09:20 Medication Orders None recorded. Patient TargetsNo targets recorded. Patient Instructions Encounter Date Encounter Id Patient Instructions Last Modified By Organization Details Last Modified Time 04/01/2024 [id number] A healthy lifestyle: care instructions Not available 04/01/2024 17:57:37 06/12/2024 [id number] A healthy lifestyle: care instructions [email or web address] Not available 06/15/2024 22:47:43 08/12/2024 [id number] A healthy lifestyle: care instructions [email or web address] Not available 08/12/2024 17:46:31 12/10/2024 [id number] A healthy lifestyle: care instructions [email or web address] Not available 12/10/2024 22:31:57 Reason for Referral Physical Therapist Referral for Vertigo Referring Physician: Marilu Santillan, Internal Medicine, Encounter Date: 04/01/2024 Results Created Date Observation Date Name Description Value Unit Range Abnormal Flag Note LastModifiedBy Organization Detail LastModifiedTime 08/23/20 24 08/23/2024 HbA1c (hemo globi n A1c), blood HbA1c 6.1 Not Available In-Office Order Internal Use Only DO Not Attach Compendium DO Not Attach Compendium, Do Not Delete/merge, [id number] 08/23/2024 09:42:10 03/20/20 24 03/20/2024 MRI, foot, w/o contr ast No observ ation record ed. [facility] [address], [place], [address], 03/22/2024 12:25:25 08/12/20 24 08/12/2024 elect rocar diogr am No observ ation record ed. RUSSELL In-Office Order Internal Use Only DO Not Attach Compendium DO Not Attach Compendium, Do Not Delete/merge, [id number] 08/12/2024 17:58:18 08/12/20 24 08/12/2024 elect rocar diogr am No observ ation record ed. RUSSELL In-Office Order Internal Use Only DO Not Attach Compendium DO Not Attach Compendium, Do Not Delete/merge, [id number] 08/12/2024 18:56:40 08/13/20 24 06/29/2023 MAMMO , scree kuldeep, digit al, bilat eral No observ ation record ed. [facility] [address], [place], [address], 08/13/2024 17:21:16 08/13/20 24 11/13/2023 diabe tic eye exam* No observ ation record ed. [facility] Dr. Garcia [facility] [address] , [place], [address], 08/13/2024 17:23:56 Result Notes None recorded. Problems Name Problem SNOMED Code Status Onset Date Resolution Date Notes Provider Name and Address Organization Details Recorded Time Vertigo 094638648 Active 2023 Mary Taylor MA null, [place] - [facility] 4 15:47:28 Type 2 diabetes mellitus 66871595 Active 2023 Mary Taylor [place] null, [place] [facility] 4 15:47:44 Essential hypertension 34971600 Active 2023 Mary Taylor [place] null, [place] [facility] 4 15:47:48 Hyperlipidemia 36252455 Active 2023 Mary Taylor [place] null, [place] [facility] 4 15:47:58 Problem Notes None recorded. Procedures Surgical History Date Name Laterality Status Provider Name and Address Organization Details Recorded Time 12/12/19 19 partial hysterectomy completed Anu Zamora MA [place] [facility] 08/12/2024 17:12:55 Back Surgery completed Seng Arrington MA [facility] 12/13/2023 17:07:34 cholecystectomy completed Seng Arrington MA [place] [facility] 12/13/2023 17:08:16 Imaging Results Imaging Date Name Status LastModified by Organization Details LastModified Time 03/20/2024 MRI, foot, w/o contrast completed [facility] [address], [place], [address], 03/22/2024 12:25:25 08/12/2024 electrocardiogram completed RUSSELL In-Offi ce Order Internal Use Only DO Not Attach Compendium DO Not Attach Compendium, Do Not Delete/merge, [id number] 08/12/2024 17:58:18 08/12/2024 electrocardiogram completed RUSSELL In-Offi ce Order Internal Use Only DO Not Attach Compendium DO Not Attach Compendium, Do Not Delete/merge, [id number] 08/12/2024 18:56:40 06/29/2023 MAMMO, screening, digital, bilateral completed [facility] [address] [place], [address], 08/13/2024 17:21:16 11/13/2023 diabetic eye exam* completed [facility] Dr[address] Kiran solares [facility] [address], [place], [address], 08/13/2024 17:23:56 Procedure Notes None recorded. Medical Equipment None Reported. Allergies No known drug allergies Medications Name Sig Start Date Stop Date Status Note LastModified by Organization Details LastModified Time metformin 500 mg tablet TAKE 1 TABLET BY MOUTH TWICE DAILY active Not Available Not Available No t Available atorvastati n 20 mg tablet TAKE 1 TABLET BY MOUTH ONCE DAILY active Not Available Not Available No t Available trazodone 50 mg tablet Take 1 tablet every day by oral route at bedtime, for sleep. 2024 active Not Available Not Available Not Avai lable azithromyci n 250 mg tablet TAKE 2 TABLETS BY MOUTH ON DAY 1, AND THEN TAKE 1 TABLET BY MOUTH ONCE A DAY ON DAY 2 THROUGH DAY 5 04/01 completed Not Available Not Available Not Available hydrocodone 5 mg-acetamin ophen 325 mg tablet TAKE 1 TO 2 TABLETS BY MOUTH EVERY 4 TO 6 HOURS NEEDED FOR PAIN NOT TO EXCEED 9 TABLETS PER DAY active Not Available Not Available No t Available meloxicam 7.5 mg tablet TAKE 1 TABLET BY MOUTH ONCE DAILY active Not Available Not Available No t Available estradiol 1 mg tablet Take 1 tablet by mouth daily active Not Available Not Available No t Available diclofenac sodium 75 mg tablet,zeeshan yed release 04/01 completed Not Available Not Available Not Available estradiol 0.01% (0.1 mg/gram) vaginal cream 04/01 completed Not Available Not Available Not Available methylpredn isolone 4 mg tablets in a dose pack USE DIRECTED 06/12 completed Not Available Not Available Not Available albuterol sulfate HFA 90 mcg/actuati on aerosol inhaler INHALE 2 PUFFS BY MOUTH EVERY 4 HOURS NEEDED FOR WHEEZING active Not Available Not Available No t Available naproxen 500 mg tablet TAKE 1 TABLET BY MOUTH TWICE DAILY WITH FOOD active Not Available Not Available No t Available diazepam 5 mg tablet Take 0.5 tablets twice a day by oral route. 06/12 completed Not Available Not Available Not Available nitrofurant oin monohydrate /macrocryst als 100 mg capsule TAKE 1 CAPSULE BY MOUTH TWICE DAILY FOR 5 DAYS 04/01 completed Not Available Not Available Not Available Vitals Date Recorded Body height Body mass index (BMI) Body weight Heart rate Oxygen saturation Oxygen saturation in Arterial blood by Pulse oximetry Systolic blood pressure Diastolic blood pressure Provider Name and Address Organization Details Last Updated DateTime 4 152.4 cm 32.8 kg/m2 55488.5 2 g 71 /min 97 % 97 % 118 mm[Hg] 82 mm[Hg] RIVERA Frazier [facility] 4 15:17:19 Date Recorded Body height Body mass index (BMI) Body weight Heart rate Oxygen saturation Oxygen saturation in Arterial blood by Pulse oximetry Systolic blood pressure Diastolic blood pressure Provider Name and Address Organization Details Last Updated DateTime 4 152.4 cm 35.7 kg/m2 40067.4 g 71 /min 97 % 97 % 130 mm[Hg] 84 mm[Hg] [facility] 4 16:20:48 Date Recorded Body height Body mass index (BMI) Body weight Heart rate Oxygen saturation Oxygen saturation in Arterial blood by Pulse oximetry Systolic blood pressure Diastolic blood pressure Provider Name and Address Organization Details Last Updated DateTime 4 152.4 cm 34.8 kg/m2 96533.5 2 g 88 /min 98 % 98 % 110 mm[Hg] 74 mm[Hg] [facility] 4 17:17:46 Date Recorded Body height Body mass index (BMI) Body weight Heart rate Oxygen saturation Oxygen saturation in Arterial blood by Pulse oximetry Systolic blood pressure Diastolic blood pressure Provider Name and Address Organization Details Last Updated DateTime 5 152.4 cm 35.6 kg/m2 96631.2 5 g 103 /min 96 % 96 % 138 mm[Hg] 82 mm[Hg] Michela Mondragon AL[place] - [facility] 16:37:36 Social History Question Answer Notes LastModified by Organizat ion Details LastModified Time Tobacco Smoking Status Never Smoker Seng Arrington MA [place], [place] - [facility] 12/13/2023 17:09:34 Do You Have An Advance Directive? No Information n ot available 12/13/2023 What Is Your Level Of Alcohol Consumption? Occasional Information not available 12/13/2023 Are You Blind Or Do You Have Difficulty Seeing? No Information n ot available 12/13/2023 What Is Your Level Of Caffeine Consumption? Moderate Information not available 12/13/2023 In The 14 Days Before Symptom Onset, Have You Had Close Contact With A Laboratory-confirm ed COVID-19 While That Case Was Ill? No Information n ot available 06/12/2024 In The 14 Days Before Symptom Onset, Have You Had Close Contact With A Person Who Is Under Investigation For COVID-19 While That Person Was Ill? No Information not available 06/12/2024 Have You Been To An Area Known To Be High Risk For COVID-19? No Information not available 06/12/2024 Are You Currently Employed? Yes Information not available 06/12/2024 Are You Deaf Or Do You Have Serious Difficulty Hearing? No Information not available 12/13/2023 What Type Of Diet Are You Following? REGULAR Information n ot available 12/13/2023 Are There Any Guns Present In Your Home? No Information not available 12/13/2023 What Was The Date Of Your Most Recent Tobacco Screening? 12/10/2024 Information not available 12/10/2024 What Is Your Relationship Status? Single Information not available 12/13/2023 Do You Use Your Seat Belt Or Car Seat Routinely? Yes Information not available 12/13/2023 Do You Have Smoke And Carbon Monoxide Detectors In Your Home? Yes Information not available 12/13/2023 Do You Feel Stressed (tense, Restless, Nervous, Or Anxious, Or Unable To Sleep At Night)? [id number] Information not available 12/13/2023 Do You Use Any Illicit Or Recreational Drugs? No Information not available 12/13/2023 Do You Use Sunscreen Routinely? No Information not available 12/13/2023 Has Tobacco Cessation Counseling Been Provided? Yes Information not available 12/13/2023 On What Date Was Tobacco Cessation Counseling Provided? 12/10/2024 Information not available 12/10/2024 Do You Or Have You Ever Used Any Other Forms Of Tobacco Or Nicotine? No Information not available 12/13/2023 Sex: Female Functional Status Question Answer Note LastModified by Organization D etails LastModified Time Are you able to care for yourself? Yes Information n ot available 12/13/2023 What is your exercise level? None Information not available 12/13/2023 Mental Status None recorded. Family History Relationship Description Onset Age of this Age Resolved Age Notes LastModified by Organization Details LastModified Time Mother Diabetes mellitus [email or web address] Not available 11/30 17:08:30 Mother Hypertensive disorder [email or web address] Not available 11/30 17:08:44 Mother Hypercholest erolemia bandersonma Not available 11/30 17:08:55 Brother Hypertensive disorder [email or web address] Not available 11/30 17:08:44 Brother Hypercholest erolemia bandersonma Not available 11/30 17:08:55 Medical History Condition Response Coronary Artery Disease N Other N High Blood Pressure Y Atrial Fibrillation N Kidney or Bladder Problems N Thyroid Problems N GI Problems N Depression N COPD N Blood Clots N Skin Problems N Anemia N Heart Attack ([place]) N Anxiety Disorder N Diabetes Y Muscle, Joint, or Bone Problems N Seizures/Epilepsy N Acid Reflux (GERD) N Cancer N Stroke N Asthma N Allergies N High Cholesterol Y Hepatitis N Liver Disease N Headaches N Heart Failure N Osteoporosis N Gynecological HistoryNo gynecological history recorded. Obstetrics History GPAL:G 0 P 0 0 0 0 Immunizations Vaccine Type Date Status Note Provider Nam yolanda and Address Organization Details Recorded Time Influenza, recombinant, quadrivalent, PF completed Char Campbell [place] null, [place] [facility] 08/14/2024 13:15:38 Influenza, recombinant, quadrivalent, PF 3 completed Char Campbell [place] [facility] 08/14/2024 13:15:38 zoster recombinant 1 completed Char [place] [facility] 08/14/2024 13:15:38 zoster recombinant 0 completed Char [place] [facility] 08/14/2024 13:15:38 COVID-19, mRNA, LNP-S, PF, 30 mcg/0.3 mL dose 1 completed Char [place] [facility] 08/14/2024 13:15:38 COVID-19, mRNA, LNP-S, PF, 30 mcg/0.3 mL dose 1 completed Char Campbell [place] [facility] 08/14/2024 13:15:38 COVID-19, mRNA, LNP-S, PF, 30 mcg/0.3 mL dose 1 completed Char [place] [facility] 08/14/2024 13:15:38 COVID-19, mRNA, LNP-S, PF, 30 mcg/0.3 mL dose 1 completed Char [place] [facility] 08/14/2024 13:15:38 COVID-19, mRNA, LNP-S, bivalent, PF, 30 mcg/0.3 mL dose 2 completed Char [place] [facility] 08/14/2024 13:15:38 COVID-19, mRNA, LNP-S, bivalent, PF, 30 mcg/0.3 mL dose 3 completed Char [place] [facility] 08/14/2024 13:15:38 COVID-19, mRNA, LNP-S, bivalent, PF, 30 mcg/0.3 mL dose 3 completed Char [place] [facility] 08/14/2024 13:15:38 pneumococcal polysaccharide PPV23 8 completed Char [place] [facility] 08/14/2024 13:15:38 Tdap 2 completed Char [place] [facility] 08/14/2024 13:15:38 Influenza, split virus, quadrivalent, PF 8 completed Char [place] [facility] 08/14/2024 13:15:38 Influenza, split virus, quadrivalent, PF 0 completed Char [place] [facility] 08/14/2024 13:15:38 Past Encounters Encounter ID Performer Location Encounter Start Date Encounter Closed Date Diagnosis/Indication Diagnosis SNOMED-CT Code Diagnosis ICD10 Code Diagnosis Note [id number] MD Ann Marie Thibodeaux (Adult Med) [address] [place] [phone] 12/13/2023 16:27:33 12/13/2023 18:00:36 Type 2 diabetes mellitus 59048684 E11.9 Hyperlipidemia 32300209 E78.5 Screening for malignant neoplasm of colon 936899430 Z12.11 Essential hypertension 91491196 I10 [id number] Marilu Santillan MD [facility] [employer] [facility] [place] [address] [place] [phone] 04/01/2024 14:53:55 04/01/2024 15:45:09 Vertigo 217409271 R42 Obesity 770605474 E66.8 [id number] MD Ann Marie Thibodeaux (Adult Med) [address] [place] [phone] 06/12/2024 16:02:03 06/12/2024 17:49:51 Obesity 057351075 E66.8 Essential hypertension 88303265 I10 Hyperlipidemia 83313399 E78.5 Type 2 arsalan betes mellitus 46995625 E11.9 [id number] Marilu Santillan MD [facility] [employer] [facility] [place] [address] [place] [phone] 08/12/2024 16:33:27 08/12/2024 17:56:11 Body mass index 30+ - obesity 223027217 Z68.34 Obesity 408649709 E66.9 Pre-surger y evaluation 643878891 Z01.818 Essential hypertension 13901492 I10 Hyperlipidemia 06095160 E78.5 Type 2 arsalan betes mellitus 69903657 E11.9 [id number] ALISON Crabtree (Adult Med) [address] [place] [address] 08/23/2024 09:40:24 08/23/2024 10:17:18 Type 2 diabetes mellitus 94445971 E11.9 [id number] MD Ann Marie Thibodeaux (Adult Med) [address] [place] [address] 12/10/2024 16:14:18 12/11/2024 09:22:54 Body mass index 30+ - obesity 749045965 Z68.35 Obesity 434209358 E66.9 Essential hypertension 61321744 I10 Type 2 arsalan betes mellitus 18616177 E11.9 Hyperlipidemia 56964981 E78.5 Insomnia 609833376 G47.0 0 Health Concerns Section Related Observation LastModified by Organization Detai ls LastModified Time None Recorded Concern Status LastModified by Organization Details LastModified Time None Recorded Advance Directives Directive N: Payers Encounter Date Sequence Insurance Name Policy Number Policy Krishna Covered Member ID Krishna Member ID Guarantor Name 04/01/2024 1 [facility] [id number] Conchita Mauro [id number] Conchita Mauro 06/12/2024 1 [facility] [id number] Conchita Mauro [id number] Conchita Mauro 08/12/2024 KAYLA Mauro 08/23/2024 1 [facility] [id number] Conchita Mauro [id number] Conchita Mauro 12/10/2024 1 [facility] [id number] Conchita Mauro [id number] Conchita Mauro Notes Date Note Type Note Provider Name and Address Organization Details Recorded Time 04/01/2024 text/html vertigo when lyi ng down and changing head positions Marilu Santillan MD Attn: [address] [place], [address], [facility] 04/14/2024 19:29:28 06/12/2024 text/html hypertension no headache or dizziness. Hyperlipidemia taking atorvastatin trying to watch red meat. Diabetes no polyphagia no polydipsia. She was lifting some boxes last week popliteus shoulder and seeing company ducts Marilu Santillan MD Attn: [address] [facility], [place], [address], [facility] - [facility] 06/15/2024 22:47:45 08/12/2024 text/html going to have shoulder surgery. Hypertension no chest pain headache or dizziness diabetes no polyphagia polydipsia hypoglycemia hyperlipidemia does try to follow a low-fat diet Marilu Santillan MD Attn: [address] [facility], [place], [address], [facility] - [facility] 08/14/2024 23:05:35 12/10/2024 text/html she has been fee ling fine there has not been any problems referable to a diabetes trying to follow her diet for her dyslipidemia her blood pressure has been controlled interval history she did have her left shoulder surgery and she is recuperating nicely. Struggling with some insomnia [id number] preps not helpful Marilu Santillan MD Attn: [address] [facility], [place], [address], [facility] - [facility] 12/10/2024 23:04:33 OBGyn Episode No OBEpisode recorded.
--- OUTSIDE RECORDS SUMMARY | 2024-12-12 16:15 | XMS_ITS | Clinical Summary ---
Author Organization [facility] Address [address] [place] [address] Phone Care Team Providers Care Asic Design Engineer Name Role Phone CURT Moreau MARILU Ricci Unavailable [phone] Reason for Visit and Chief Complaint The Chief Complaint is: Here for EMB secondary to mennorhagia, LMP 02/07/11. Took 800 mg Ibuprofen before visit Plan of Treatment - OTHER - Last Documented On 03/02/2011 3:43PM ; [facility] Follow-up Consult with Dr. Lobo - possible ablation - Last Documented On 03/02/2011 3:43PM ; [facility] Pending Tests Order Diagnosis Results Due Ordering P magda Lab TISSUE PATHOLOGY 04/01/11 SANAM COBB [facility]- Last Documented On 3:50PM ; [facility] Instructions to patient Instructed to call if excess alia bleeding or abdominal/pelvic pain Last Documented On 3:27PM ; [facility] Patient may take Motrin OTC PRN as directed Last Documented On 3:27PM ; [facility] Education and Decision Aids were provided during visit for: INFORMED CONSENT DISCUSSION: Endometrial biopsy was discussed in detail including discomfort, insufficient specimen with need to repeat test, and rare incidence of uterine perforation. Patient expressed understanding of the above and consented to the procedure Last Documented On 3:27PM ; [facility] Assessments Includes: Assessments from this encounter No Assessments Recorded Instructions Includes: Instructions from this encounter Instructions to patient Instructed to call if excess alia bleeding or abdominal/pelvic pain Last Documented On 3:27PM ; [facility] Patient may take Motrin OTC PRN as directed Last Documented On 3:27PM ; [facility] Education and Decision Aids were provided during visit for: INFORMED CONSENT DISCUSSION: Endometrial biopsy was discussed in detail including discomfort, insufficient specimen with need to repeat test, and rare incidence of uterine perforation. Patient expressed understanding of the above and consented to the procedure Last Documented On 1 3:27PM ; [facility] Medical Equipment - Implanted Devices Includes: Current Devices No Medical Equipment Recorded Medications Includes: Medications discussed during this encounter and other current Medications Current Medications (continue as prescribed) Singulair 10 MG OR TABS 02/17/2011 Provider: Diagnosis: Last Documented On 02/17/2011 9:51AM By EDUARDO STAFFORD ; [facility] Past Medications on file Ortho-Cyclen (28) 0.25-35 MG-MCG OR TABS 02/17/2011 - 05/18/2011 Provider: SANAM SIMPSON Diagnosis: Last Documented On 1 10:04AM By SANAM GROVE ; [facility] Ibuprofen 800 MG OR TABS 02/17/2011 - 03/19/2011 Provi shelia: SANAM GROVE Diagnosis: Last Documented On 1 10:04AM By SANAM GROVE ; [facility] Ortho-Cyclen (28) 0.25-35 MG-MCG OR TABS 02/11/2010 - 02/06/2011 Provider: SANAM SIMPSON Diagnosis: Last Documented On 0 11:04AM By SANAM GROVE ; [facility] Medications Administered Includes: Administered Medications from this encounter No Administered Medications Recorded Vital Signs Includes: Vital Signs from this encounter Vital Name 03/02/2011 03:30P Blood Pressure Sitting (mmHg) 124/72 Weight (lb) 172 Last Documented: On 03/02/2011 3:30PM ; [facility] Results Includes: Results discussed during this encounter No Results Recorded For Specified Dates History of Present Illness Includes: History of Present Illness from this encounter No History of Present Illness Recorded Social History No Social History Recorded - Smoking Status Unknown Procedures and Surgical History Includes: Procedures from this encounter Procedures Code Diagnosis Performing Provider Service Location Service Date endometrial biopsy was performed ~Procedure Note: Done without complications.~Amt of Tissue: Adequate~Uterine Sound Measurement: Approximately 8 cm [id number] Last Documented On 1 3:27PM ; [facility] Medical History Includes: Medical History [...] Location Date Check-In Time Check-Out Time Diagnosis ENDOMETRIAL BIOPSY SANAM COBB [facility] DOLL WIG MAKER ROOTED HAIR 03/02/20 11 3:16PM 3:53PM Clinical Notes Includes: Clinical Notes from this encounter No Clinical Notes Recorded
--- OUTSIDE RECORDS SUMMARY | 2024-12-12 16:15 | XMS_ITS | Clinical Summary ---
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 Menses are now heavier than ever been. Cramps are becoming worse Plan of Treatment - DYSMENORRHEA - Last Documented On 02/17/2011 10:05AM ; [facility] U/S /SHIPPING COORDINATOR ULTRASOUND: PTVT US - Last Documented On 02/17/2011 10:05AM ; [facility] ? OTHERPHY ORDER/COMMENT Please get most recent lipid panel from Dr. Lewis Santillan. Thanks!Ortho-Cyclen (28) 0.25-35 MG-MCG TABS, 1 daily, 90 days, 0 refillsIbuprofen 800 MG TABS, 1 every 6 hours as needed, 30 days, 0 refills - Last Documented On 02/17/2011 10:05AM ; [facility] ? Cervical Pap SmearIn office procedures/*Clia Waived Labs: Pap Smear Taken - Last Documented On 02/17/2011 10:05AM ; [facility] ? SCREEN MAL NEOP-RECTUMIn office procedures/*Clia Waived Labs: *FIT Test (Fecal Occult Test) - Last Documented On 02/17/2011 10:05AM ; [facility] - Follow-up visit 1 year or as needed - Last Documented On 02/17/2011 10:05AM ; [facility] Pending Tests Order Diagnosis Results Due Ordering Larry man U/S @ MICHEL - OB or JV U/S PTVT US DYSMENORRHEA 1 SANAM BLOCK- Last Documented On 1 10:07AM ; [facility] In office procedures - *Clia Waived Labs Pap Smear Taken SCREEN MAL NEOP-CERVIX 03/03/11 SANAM COBB NP- Last Documented On 1 9:55AM ; [facility] In office procedures - *Clia Waived Labs *FIT Test (Fecal Occult Test) SCREEN MAL NEOP-RECTUM 03/03/11 SANAM COBB [facility]- Last Documented On 1 9:55AM ; [facility] Lab SUREPATH PAP AND HR HPV DNA 03/19/11 SANAM COBB [facility]- Last Documented On 1 10:06AM ; [facility] Lab CHLAMYDIA/N. GONORRHOEAE DNA, SDA, PAP VIAL 03/19/11 SANAM COBB [facility]- Last Documented On 1 10:06AM ; [facility] Instructions to patient Instructions for patient : B reast Self Exam discussed Last Documented On 1 9:50AM ; [facility] Lose weight Last Documented On 1 9:53AM ; [facility] Education and Decision Aids were provided during visit for: Patient Education: Daily jose cium and vitamin D Last Documented On 1 9:52AM ; [facility] Patient Education: weight be aring exercise Last Documented On 1 9:52AM ; [facility] Assessments Includes: Assessments from this encounter Findings - Normal routine history and physical - Last Documented On 02/17/2011 10:05AM ; [facility] - Routine pelvic exam - Last Documented On 02/17/2011 10:05AM ; [facility] - NORMAL FEMALE EXAM - Last Documented On 02/17/2011 10:05AM ; [facility] - Screening Malig. Neoplasm Rectum - Last Documented On 02/17/2011 10:05AM ; [facility] Instructions Includes: Instructions from this encounter Instructions to patient Instructions for patient : B reast Self Exam discussed Last Documented On 1 9:50AM ; [facility] Lose weight Last Documented On 1 9:53AM ; [facility] Education and Decision Aids were provided during visit for: Patient Education: Daily jose cium and vitamin D Last Documented On 1 9:52AM ; [facility] Patient Education: weight be aring exercise Last Documented On 1 9:52AM ; [facility] Medical Equipment - Implanted Devices Includes: Current Devices No Medical Equipment Recorded Medications Includes: Medications discussed during this encounter and other current Medications New / Renewed during this visit SANAM GROVE on 02/17/2011 Ortho-Cyclen (28) 0.25-35 MG-MCG OR TABS Provider: SANAM Aldridge 90 day supply: 90, 0 refills Diagnosis: Pharmacy: [facility] [address], [id number] - Last Documented On 1 10:04AM By SANAM GROVE ; [facility] Ibuprofen 800 MG OR TABS Provider: MERRY GROVE 30 day supply: 120, 0 refills Diagnosis: Pharmacy: [facility] ([place] [id number] [facility], [phone] - Last Documented On 1 10:04AM By SANAM GROVE ; [facility] Current Medications (continue as prescribed) Singulair 10 MG OR TABS 02/17/2011 Provider: Diagnosis: Last Documented On 02/17/2011 9:51AM By EDUARDO STAFFORD ; [facility] Past Medications on file Ortho-Cyclen (28) 0.25-35 MG-MCG OR TABS 02/11/2010 - 02/06/2011 Provider: SANAM SIMPSON Diagnosis: Last Documented On 0 11:04AM By SANAM GROVE ; [facility] Medications Administered Includes: Administered Medications from this encounter No Administered Medications Recorded Vital Signs Includes: Vital Signs from this encounter Vital Name 02/17/2011 10:15A Blood Pressure Sitting L 114/68 BP Cuff Size Large Height (in) 59.5 Weight (lb) 173 Body Mass Index (kg/m2) 34.4 Body Surface Area (m2) 1.7 Last Documented: On 02/17/2011 9:48AM ; [facility] Results Includes: Results discussed during this encounter No Results Recorded For Specified Dates History of Present Illness Includes: History of Present Illness from this encounter No History of Present Illness Recorded Social History Description Last Updated Alcohol use Occ 02/17/2011 Last Documented On 1 10:05AM ; [facility] Not using drugs 02/17/2011 Last Documented On 1 10:05AM ; [facility] Sexually active 02/17/2011 Last Documented On 1 10:05AM ; [facility] Non-smoker 02/11/2010 Last Documented On 1 9:42AM ; [facility] Social history unchanged got Last Documented On 1 9:42AM ; [facility] 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 [employer] 10/22/2009 Last Documented On 1 9:42AM ; [facility] Sexually active with 1 partners in the l ast year 10/22/2009 Last Documented On 1 9:42AM ; [facility] Alcohol 10/22/2009 Last Documented On 1 9:42AM ; [facility] Caffeine use 10/22/2009 Last Documented On 1 9:42AM ; [facility] Daily tea consumption was four cups per day 10/22/2009 Last Documented On 1 9:42AM ; [facility] Drug use by a sexual partner does not in clude intravenous drug use 10/22/2009 Last Documented On 1 9:42AM ; [facility] Educational level: grade 10/22/2009 Last Documented On 1 9:42AM ; [facility] In grade 13-16 (college) 10/22/2009 Last Documented On 1 9:42AM ; [facility] Marital history 10/22/2009 Last Documented On 1 9:42AM ; [facility] Partner has not had a STD in the past ye ar 10/22/2009 Last Documented On 1 9:42AM ; [facility] Patient does not report having sex when she didn't want to 10/22/2009 Last Documented On 1 9:42AM ; [facility] Patient has not had sex unde r the influence of alcohol or drugs in the last year 10/22/2009 Last Documented On 1 9:42AM ; [facility] Sexual history : painful intercourse Last Documented On 1 9:42AM ; [facility] Sexual partner has not had o ther partners while in relationship with patient 10/22/2009 Last Documented On 1 9:42AM ; [facility] Sexual partner has not had sex with pros titutes 10/22/2009 Last Documented On 1 9:42AM ; [facility] The racial background 10/22/2009 Last Documented On 1 9:42AM ; [facility] The racial background is 10/22 Last Documented On 1 9:42AM ; [facility] Using condoms 10/22/2009 Last Documented On 1 9:42AM ; [facility] Smoking Status Unknown Procedures and Surgical History Includes: Procedures from this encounter Procedures Code Diagnosis Performing Provider Service L ocation Service Date cervical Pap smear 22746 Last Documented On 1 9:50AM ; [facility] a fecal occult blood test was negative [id number] Last Documented On 1 9:52AM ; [facility] Chlamydia trachomatis culture was perfor med Last Documented On 1 10:05AM ; [facility] Neisseria gonorrhea culture was performe d Last Documented On 1 10:05AM ; [facility] Surgical History Last Updated No history of appendectomy 02/11/2010 Last Documented On 1 9:42AM ; [facility] No history of cholecystectomy 02/11/2010 Last Documented On 1 9:42AM ; [facility] No history of Loop electrode excision of cervix (LEEP) 02/11/2010 Last Documented On 1 9:42AM ; [facility] No history of total abdominal hysterecto my 02/11/2010 Last Documented On 1 9:42AM ; [facility] No history of tubal ligation 02/11/2010 Last Documented On 1 9:42AM ; [facility] No history of vaginal hysterectomy 02/11 Last Documented On 1 9:42AM ; [facility] Medical History Includes: Medical History addressed during this encounter Description Last Updated History of human papilloma virus infecti on 02/17/2011 Last Documented On 1 10:05AM ; [facility] History of hyperlipidemia 02/17/2011 Last Documented On 1 10:05AM ; [facility] History of cervical dysplasia Ho cryo Last Documented On 1 10:05AM ; [facility] No recent change in medical history 01/30 Last Documented On 1 10:05AM ; [facility] LMP: 02/07/2011 02/17/2011 Last Documented On 1 10:05AM ; [facility] Last mammogram date: 02/09/2011 1 Last Documented On 1 10:05AM ; [facility] Last pap smear date 02/11/2010 02/17/2011 Last Documented On 1 10:05AM ; [facility] Contraception: mononessa 02/11/2010 Last Documented On 1 9:42AM ; [facility] History of allergic rhinitis 02/11/2010 Last Documented On 1 9:42AM ; [facility] No history of dysfunctional uterine blee ding 02/11/2010 Last Documented On 1 9:42AM ; [facility] No history of urinary tract infection Last Documented On 1 9:42AM ; [facility] No history of vaginitis 02/11/2010 Last Documented On 1 9:42AM ; [facility] Result: normal 02/11/2010 Last Documented On 1 9:42AM ; [facility] Result: normal 02/11/2010 Last Documented On 1 9:42AM ; [facility] A breast self-exam was performed Last Documented On 1 9:42AM ; [facility] A Pap smear was performed 10/22/2009 Last Documented On 1 9:42AM ; [facility] An HIV test was not performed 10/22/2009 Last Documented On 1 9:42AM ; [facility] Chlamydia 10/22/2009 Last Documented On 1 9:42AM ; [facility] Oral contraceptives 10/22/2009 Last Documented On 1 9:42AM ; [facility] Previous hospitalizations [facility] SURGERY IN 1998,POLYPECTOMY FROM UTERUS IN 2004 10/22/2009 Last Documented On 1 9:42AM ; [facility] Previously diagnosed with a STD 10/22/19 10 Last Documented On 1 9:42AM ; [facility] Taking OTC medications ASPIRIN 0 Last Documented On 1 9:42AM ; [facility] Family History Includes: Family History addressed during this encounter Description Last Updated Family history of hypercholesterolemia m other, brother et self 02/17/2011 Last Documented On 1 10:05AM ; [facility] Family history unchanged 02/17/2011 Last Documented On 1 10:05AM ; [facility] No family history of hypertension 2010 Last Documented On 1 10:05AM ; [facility] No family history of uterine cancer 01/30 Last Documented On 1 10:05AM ; [facility] No heart disease 02/17/2011 Last Documented On 1 10:05AM ; [facility] Family history of diabetes mellitus moth er 02/11/2010 Last Documented On 1 9:42AM ; [facility] Family history of malignant neoplasm of the large intestine father 02/11/2010 Last Documented On 1 9:42AM ; [facility] No family history of malignant female br east neoplasm 02/11/2010 Last Documented On 1 9:42AM ; [facility] No family history of malignant neoplasm of the ovary 02/11/2010 Last Documented On 1 9:42AM ; [facility] Family history of Diabetes 10/22/2009 Last Documented On 1 9:42AM ; [facility] Review of Systems Includes: Review [...] Location Date Check-In Time Check-Out Time Diagnosis [place]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 Neoplasm Rectum,Normal Female Exam Clinical Notes Includes: Clinical Notes from this encounter No Clinical Notes Recorded
--- OUTSIDE RECORDS SUMMARY | 2024-12-12 16:15 | XMS_ITS | CONTINUITY OF CARE DOCUMENT ---
Author Name amari fitzpatrick Address Unknown Organization [facility] Office Address [address] [place] [address] Phone [phone] Care Team Providers Care Page Makeup System Operator Name Role Phone Sagar AGUILAR, Viviane Unavailable Viviane Keith MD Unavailable INSURANCE PROVIDERS Payer name Policy type / Coverage type [place] red alliance party ID [employer] Est[employer] [id number]
--- OUTSIDE RECORDS SUMMARY | 2024-12-12 16:15 | XMS_ITS ---
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 Name Role Phone MARILU ELIAS D.O Unavailable [phone] Plan of Treatment Findings Encounter Date Ordered follow-up visit 1 ye ar or as needed BUSINESS DEVELOPMENT EXAM with SANAM COBB [facility] 02/17/2011 Last Documented On 1 10:05AM ; [facility] Pt to get fasting lipid prof ile at lab in [place] - rx given BUSINESS DEVELOPMENT EXAM with SANAMAMBROSIO COBB [facility] 02/11/2010 Last Documented On 0 11:05AM ; [facility] Ordered follow-up visit 1 y ear or as needed BUSINESS DEVELOPMENT EXAM with SANAMAMBROSIO COBB [facility] 02/11/2010 Last Documented On 0 11:05AM ; [facility] Instructions to patient Instructed to call if excess alia bleeding or abdominal/pelvic pain Last Documented On 1 3:27PM ; [facility] Patient may take Motrin OTC PRN as directed Last Documented On 1 3:27PM ; [facility] Instructions for patient : B reast Self Exam discussed Last Documented On 1 9:50AM ; [facility] Lose weight Last Documented On 1 9:53AM ; [facility] Instructions for patient : B reast Self Exam discussed Last Documented On 0 10:42AM ; [facility] Lose weight Last Documented On 0 10:53AM ; [facility] Education and Decision Aids were provided during visit for: INFORMED CONSENT DISCUSSION: Endometrial biopsy was discussed in detail including discomfort, insufficient specimen with need to repeat test, and rare incidence of uterine perforation. Patient expressed understanding of the above and consented to the procedure Last Documented On 1 3:27PM ; [facility] Patient Education: Daily jose cium and vitamin D Last Documented On 1 9:52AM ; [facility] Patient Education: weight be aring exercise Last Documented On 1 9:52AM ; [facility] Patient Education: Daily jose cium and vitamin D Last Documented On 0 10:42AM ; [facility] Patient Education: weight be aring exercise Last Documented On 0 10:53AM ; [facility] Assessments Includes: Assessments for all patient encounters Findings Encounter Date NORMAL FEMALE EXAM BUSINESS DEVELOPMENT EXAM with SANAM COBB Marcus [facility] 02/17/2011 Last Documented On 1 10:05AM ; [facility] Normal routine history and physical BUSINESS DEVELOPMENT EXAM joel Garcia REZA [facility] 02/17/2011 Last Documented On 1 10:05AM ; [facility] Routine pelvic exam BUSINESS DEVELOPMENT EXAM with SANAM Garcia COBB [facility] 02/17/2011 Last Documented On 1 10:05AM ; [facility] Screening Malig. Neoplasm Rectum BUSINESS DEVELOPMENT EXAM with Oly COBB [facility] 02/17/2011 Last Documented On 1 10:05AM ; [facility] Normal routine history and physical BUSINESS DEVELOPMENT EXAM wit og Garcia COBB [facility] 02/11/2010 Last Documented On 0 11:05AM ; [facility] Routine pelvic exam BUSINESS DEVELOPMENT EXAM with SANAM Garcia REZA [facility] 02/11/2010 Last Documented On 0 11:05AM ; [facility] Screening Malig. Neoplasm Rectum BUSINESS DEVELOPMENT EXAM with Oly Garcia REZA [facility] 02/11/2010 Last Documented On 0 11:05AM ; [facility] Instructions Includes: Instructions for all patient encounters Instructions to patient Instructed to call if excess alia bleeding or abdominal/pelvic pain Last Documented On 1 3:27PM ; [facility] Patient may take Motrin OTC PRN as directed Last Documented On 1 3:27PM ; [facility] Instructions for patient : B reast Self Exam discussed Last Documented On 1 9:50AM ; [facility] Lose weight Last Documented On 1 9:53AM ; [facility] Instructions for patient : B reast Self Exam discussed Last Documented On 0 10:42AM ; [facility] Lose weight Last Documented On 0 10:53AM ; [facility] Education and Decision Aids were provided during visit for: INFORMED CONSENT DISCUSSION: Endometrial biopsy was discussed in detail including discomfort, insufficient specimen with need to repeat test, and rare incidence of uterine perforation. Patient expressed understanding of the above and consented to the procedure Last Documented On 1 3:27PM ; [facility] Patient Education: Daily jose cium and vitamin D Last Documented On 1 9:52AM ; [facility] Patient Education: weight be aring exercise Last Documented On 1 9:52AM ; [facility] Patient Education: Daily jose cium and vitamin D Last Documented On 0 10:42AM ; [facility] Patient Education: weight be aring exercise Last Documented On 0 10:53AM ; [facility] Medical Equipment - Implanted Devices Includes: Current and historical Devices No Medical Equipment Recorded Medications Includes: Current and historical Medications Current Medications (continue as prescribed) Singulair 10 MG OR TABS 02/17/2011 Provider: Diagnosis: Last Documented On 02/17/2011 9:51AM By EDUARDO STAFFORD ; [facility] Past Medications on file Ortho-Cyclen (28) 0.25-35 MG-MCG OR TABS 02/17/2011 - 05/18/2011 Provider: SANAM NEVAREZ [employer] Diagnosis: Last Documented On 1 10:04AM By SANAM GROVE ; [facility] Ibuprofen 800 MG OR TABS 02/17/2011 - 03/19/2011 Provi shelia: SANAM BLOCK-BC Diagnosis: Last Documented On 1 10:04AM By SANAM GROVE ; [facility] Ortho-Cyclen (28) 0.25-35 MG-MCG OR TABS 02/11/2010 - 02/06/2011 Provider: SANAM NEVAREZ NP-BC Diagnosis: Last Documented On 0 11:04AM By SANAM GROVE ; [facility] Ortho-Cyclen (28) 0.25-35 MG-MCG OR TABS 02/10/2010 - 02/11/2010 Provider: SANAM NEVAREZ NP-BC Diagnosis: Appt. is due this month!! Last Documented On 0 11:04AM By SANAM GROVE ; [facility] Ortho-Cyclen (28) 0.25-35 MG-MCG OR TABS 01/29/2010 - 02/10/2010 Provider: SANAM NEVAREZ NP-BC Diagnosis: appointment due . Last Documented On 0 7:33AM By SANAM GROVE ; [facility] Ortho-Cyclen (28) 0.25-35 MG-MCG OR TABS 10/22/2009 - 02/17/2011 Provider: Diagnosis: Last Documented On 1 10:04AM By SANAM GROVE ; [facility] Medications Administered Includes: Administered Medications in patient's chart No Administered Medications Recorded Results Includes: Results from 12/13/2023 through 12/12/2024 No Results Recorded For Specified Dates History of Present Illness History of Present Illness not supported for this document type No History of Present Illness Recorded Social History Description Last Updated Alcohol use Occ 02/17/2011 Last Documented On 1 10:05AM ; [facility] Not using drugs 02/17/2011 Last Documented On 1 10:05AM ; [facility] Sexually active 02/17/2011 Last Documented On 1 10:05AM ; [facility] Non-smoker 02/11/2010 Last Documented On 0 11:05AM ; [facility] Social history unchanged got Last Documented On 0 11:05AM ; [facility] 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 [employer] 10/22/2009 Last Documented On 0 10:18AM ; [facility] Sexually active with 1 partners in the l ast year 10/22/2009 Last Documented On 0 10:18AM ; [facility] Alcohol 10/22/2009 Last Documented On 0 10:18AM ; [facility] Caffeine use 10/22/2009 Last Documented On 0 10:18AM ; [facility] Daily tea consumption was four cups per day 10/22/2009 Last Documented On 0 10:18AM ; [facility] Drug use by a sexual partner does not in clude intravenous drug use 10/22/2009 Last Documented On 0 10:18AM ; [facility] Educational level: grade 10/22/2009 Last Documented On 0 10:18AM ; [facility] In grade 13-16 (college) 10/22/2009 Last Documented On 0 10:18AM ; [facility] Marital history 10/22/2009 Last Documented On 0 10:18AM ; [facility] Partner has not had a STD in the past ye ar 10/22/2009 Last Documented On 0 10:18AM ; [facility] Patient does not report having sex when she didn't want to 10/22/2009 Last Documented On 0 10:18AM ; [facility] Patient has not had sex unde r the influence of alcohol or drugs in the last year 10/22/2009 Last Documented On 0 10:18AM ; [facility] Sexual history : painful intercourse Last Documented On 0 10:18AM ; [facility] Sexual partner has not had o ther partners while in relationship with patient 10/22/2009 Last Documented On 0 10:18AM ; [facility] Sexual partner has not had sex with pros titutes 10/22/2009 Last Documented On 0 10:18AM ; [facility] The racial background 10/22/2009 Last Documented On 0 10:18AM ; [facility] The racial background is 10/22 Last Documented On 0 10:18AM ; [facility] Using condoms 10/22/2009 Last Documented On 0 10:18AM ; [facility] Smoking Status Unknown Procedures and Surgical History Surgical History Last Updated No history of appendectomy 02/11/2010 Last Documented On 0 11:05AM ; [facility] No history of cholecystectomy 02/11/2010 Last Documented On 0 11:05AM ; [facility] No history of Loop electrode excision of cervix (LEEP) 02/11/2010 Last Documented On 0 11:05AM ; [facility] No history of total abdominal hysterecto my 02/11/2010 Last Documented On 0 11:05AM ; [facility] No history of tubal ligation 02/11/2010 Last Documented On 0 11:05AM ; [facility] No history of vaginal hysterectomy 02/11 Last Documented On 0 11:05AM ; [facility] Medical History Includes: Medical History in patient's chart Description Last Updated History of human papilloma virus infecti on 02/17/2011 Last Documented On 1 10:05AM ; [facility] History of hyperlipidemia 02/17/2011 Last Documented On 1 10:05AM ; [facility] History of cervical dysplasia Ho cryo Last Documented On 1 10:05AM ; [facility] No recent change in medical history 01/30 Last Documented On 1 10:05AM ; [facility] LMP: 02/07/2011 02/17/2011 Last Documented On 1 10:05AM ; [facility] Last mammogram date: 02/09/2011 1 Last Documented On 1 10:05AM ; [facility] Last pap smear date 02/11/2010 02/17/2011 Last Documented On 1 10:05AM ; [facility] Contraception: mononessa 02/11/2010 Last Documented On 0 11:05AM ; [facility] History of allergic rhinitis 02/11/2010 Last Documented On 0 11:05AM ; [facility] No history of dysfunctional uterine blee ding 02/11/2010 Last Documented On 0 11:05AM ; [facility] No history of urinary tract infection Last Documented On 0 11:05AM ; [facility] No history of vaginitis 02/11/2010 Last Documented On 0 11:05AM ; [facility] Result: normal 02/11/2010 Last Documented On 0 11:05AM ; [facility] Result: normal 02/11/2010 Last Documented On 0 11:05AM ; [facility] A breast self-exam was performed 010 Last Documented On 0 10:18AM ; [facility] A Pap smear was performed 10/22/2009 Last Documented On 0 10:18AM ; [facility] An HIV test was not performed 10/22/2009 Last Documented On 0 10:18AM ; [facility] Chlamydia 10/22/2009 Last Documented On 0 10:18AM ; [facility] Oral contraceptives 10/22/2009 Last Documented On 0 10:18AM ; [facility] Previous hospitalizations [facility] SURGERY IN 1998,POLYPECTOMY FROM UTERUS IN 200310/22/2009 Last Documented On 0 10:18AM ; [facility] Previously diagnosed with a STD 10/22/19 10 Last Documented On 0 10:18AM ; [facility] Taking OTC medications ASPIRIN 0 Last Documented On 0 10:18AM ; [facility] Family History Includes: Family History in patient's chart Description Last Updated Family history of hypercholesterolemia m other, brother et self 02/17/2011 Last Documented On 1 10:05AM ; [facility] Family history unchanged 02/17/2011 Last Documented On 1 10:05AM ; [facility] No family history of hypertension 2010 Last Documented On 1 10:05AM ; [facility] No family history of uterine cancer 01/30 Last Documented On 1 10:05AM ; [facility] No heart disease 02/17/2011 Last Documented On 1 10:05AM ; [facility] Family history of diabetes mellitus moth er 02/11/2010 Last Documented On 0 11:05AM ; [facility] Family history of malignant neoplasm of the large intestine father 02/11/2010 Last Documented On 0 11:05AM ; [facility] No family history of malignant female br east neoplasm 02/11/2010 Last Documented On 0 11:05AM ; [facility] No family history of malignant neoplasm of the ovary 02/11/2010 Last Documented On 0 11:05AM ; [facility] Family history of Diabetes 10/22/2009 Last Documented On 0 10:18AM ; [facility] Review of Systems Review of Systems not supported for this document type No Review of Systems Recorded Mental Status No Mental Status Recorded Functional Status No Functional Status Recorded Physical Exam Physical Exam not supported for this document type No Physical Exam Recorded Allergies Includes: Active, inactive, and resolved Allergies No Known Allergies Clinical Notes Includes: Signed Clinical Notes starting from 10/21/2022 No Clinical Notes Recorded
--- OUTSIDE RECORDS SUMMARY | 2024-12-12 16:16 | XMS_ITS | Encounter Summary ---
Author Organization [facility] Address [facility] [place] [address] Care Team Providers Care Associate Director Regulatory Affairs Name Role Phone Lewis Santillan DO Primary Care Provider [phone] Encounter Details Date Type Department Care Team (Late st Contact Info) Description 04/01/[address] [facility] [address] [place], [place] [id number] Linda Mcnamara MD [address] [facility] [address] [place] [address] Social History Tobacco Use Types Packs/Day Years [...] on file Sexual Orientation Not on file documented as of this encounter Plan of Treatment Not on file documented as of this encounter Results * TYPE & SCREEN (04/01/2019 3:51 PM CDT) ABO/RH O POSITIVE 04/01/2019 6:21 PM CDT [facility] ANTIBODY SCREEN NEGATIVE 9 6:21 PM CDT [facility] SAMPLE EXPIRATION 04/08/2019 04/01/2019 6:21 PM CDT [facility] 04/01/2019 3:51 PM CDT Linda Mcnamara MD BLOOD BANK TEST ORDERABLES F inal Result Performing Organization Address [facility] Co de Phone Number [facility] [address] [place] [address], [place] [phone] * MRSA SCREENING (04/01/2019 3:51 PM CDT) SPEC DESCRIPTION NASAL 04/01/2019 3:50 PM CDT [facility] SPECIAL REQUESTS NO SPECIAL REQUEST 04/01/2019 3:50 PM CDT [facility] CULTURE RESULT NO MRSA ISOLATED 04/02/2019 9:39 PM CDT [facility] SPECIMEN FROM INTERNAL NOSE / Unknown 04/01/2019 3:51 PM CDT 04/01/2019 4:09 PM CDT Linda Mcnamara MD MICROBIOLOGY - GENERAL ORDER ETHAN Final Result Performing Organization Address [facility] Co de Phone Number [facility] [address] [place] [address], [place] [phone] * (ABNORMAL) HEPATIC FUNCTION PANEL (04/01/2019 3:51 PM CDT) TOTAL PROTEIN S/P/B 6.8 6.4 - 8.2 G/DL 04/01/2019 4:27 PM CDT [facility] ALBUMIN S/P/B 3.6 3.4 - 5.0 G/DL 04/01/2019 4:27 PM CDT [facility] BILIRUBIN TOTAL S/P/B 1.6(H) 0.2 - 1.2 MG/DL 04/01/2019 4:27 PM CDT [facility] BILIRUBIN DIRECT S/P/B 0.3(H) 0.0 - 0.20 MG/DL 04/01/2019 4:27 PM CDT [facility] BILIRUBIN INDIRECT S/P/B 1.3(H) 0.0 - 0.9 MG/DL 04/01/2019 4:27 PM CDT [facility] ALKALINE PHOSPHATASE S/P/B 90 50 - 136 U/L 04/01/2019 4:27 PM CDT [facility] AST 13(L) 15 - 37 U/L 04/01/2019 4:27 PM CDT [facility] ALT 22 14 - 55 U/L 04/01/2019 4:27 PM CDT [facility] A/G RATIO 1.1 1.0 - 2.0 RATIO 04/01/2019 4:27 PM CDT [facility] 04/01/2019 3:51 PM CDT Linda Mcnamara MD LABORATORY Final Result Performing Organization Address [facility] de Phone Number [facility] [address] [place] [address], [place] [phone] * PLATELET FUNCTION ASSAY (04/01/2019 3:51 PM CDT) EPINEPHRINE (PLT FUNCT) 152 80 - 184 SEC 04/01/2019 4:26 PM CDT [facility] COLLAGEN / ADP COL/ADP NOT NEEDED. 56 - 102 SEC 04/01/2019 4:26 PM CDT [facility] Comment: NORMAL COLLAGEN/EPI INDICATES NORMAL PLATELET FUNCTION. 04/01/2019 3:51 PM CDT us Linda Mcnamara MD LABORATORY Final Result [facility] [address] [place] [address], * (ABNORMAL) BASIC METABOLIC PANEL (04/01/2019 3:51 PM CDT) [facility] GLUCOSE 101(H) 70 - 99 MG/DL 04/01/2019 4:27 PM CDT [facility] BUN 11 7 - 18 MG/DL 04/01/2019 4:27 PM CDT [facility] CREATININE S/P/B 0.75 0.55 - 1.02 MG/DL 04/01/2019 4:27 PM CDT [facility] SODIUM S/P/B 137 136 - 145 MMOL/L 04/01/2019 4:27 PM CDT [facility] POTASSIUM S/P/B 3.6 3.5 - 5.1 MMOL/L 04/01/2019 4:27 PM CDT [facility] CHLORIDE S/P/B 102 100 - 108 MMOL/L 04/01/2019 4:27 PM CDT [facility] CO2 27.6 21 - 32 MMOL/L 04/01/2019 4:27 PM CDT [facility] CALCIUM S/P/B 9.1 8.5 - 10.1 MG/DL 04/01/2019 4:27 PM CDT [facility] ANION GAP 7.4 5 - 15 MMOL/L 04/01/2019 4:27 PM CDT [facility] BUN CREATININE RATIO 14.7 6 - 26 04/01/2019 4:27 PM T [facility] EGFR NON-AFR. AMER. >90 >90 ML/MIN/1.7 3 M2 04/01/2019 4:27 PM CDT [facility] EGFR AFR. AMER. >90 >90 ML/MIN/1.7 3 M2 04/01/2019 4:27 PM CDT [facility] Comment: NOTE: eGFR is not calculated for patients <18 years of age. This is an estimated GFR (CKD EPI) and should not be used for calculating drug doses. 04/01/2019 3:51 PM CDT Linda Mcnamara MD LABORATORY Final Result [facility] [address] [place] [address], [place] [phone] * (ABNORMAL) CBC W/DIFF AUTOMATED (04/01/2019 3:51 PM CDT) WBC 7.2 4.4 - 11.0 x10'3/uL 04/01/2019 4:41 PM CDT [facility] RBC 4.10(L) 4.50 - 5.10 x10'6/uL 04/01/2019 4:41 PM CDT [facility] HGB 11.8(L) 12.3 - 15.3 G/DL 04/01/2019 4:41 PM CDT [facility] HCT 35.8(L) 35.9 - 44.6 % 04/01/2019 4:41 PM CDT [facility] MCV 87.3 80.0 - 96.0 FL 04/01/2019 4:41 PM CDT [facility] MCH 28.8 25.3 - 30.9 PG 04/01/2019 4:41 PM CDT [facility] MCHC 33.0 31.0 - 34.1 G/DL 04/01/2019 4:41 PM CDT [facility] RDW 12.3(L) 12.4 - 15.1 % 04/01/2019 4:41 PM CDT [facility] PLT 201 151 - 353 x10'3/uL 04/01/2019 4:41 PM CDT [facility] MPV 11.0 9.6 - 12.0 FL 04/01/2019 4:41 PM CDT [facility] RBC MORPHOLOGY NORMAL 04/01/2019 4:41 PM T [facility] PLT MORPH. NORMAL 04/01/2019 4:41 PM T [facility] WBC MORPHOLOGY NORMAL 04/01/2019 4:41 PM CDT [facility] LYMPHOCYTES % 35.3 15.8 - 45.0 % 04/01/2019 4:41 PM T [facility] NEUTROPHILS % 56.5 42.1 - 71.9 % 04/01/2019 4:41 PM T [facility] MONOCYTES % 7.2 5.7 - 12.5 % 04/01/2019 4:41 PM T [facility] EOSINOPHILS 0.4 0.0 - 5.6 % 04/01/2019 4:41 PM CDT [facility] BASOPHILS 0.3 0.0 - 1.3 % 04/01/2019 4:41 PM CDT [facility] ABS. NEUTROPHILS TOTAL 4.06 1.40 - 6.00 x10'3/uL 04/01/2019 4:41 PM T [facility] IMMATURE GRANS % 0.3 0.0 - 0.5 % 04/01/2019 4:41 PM CDT [facility] ABS. LYMPHOCYTES 2.54 0.80 - 4.70 x10'3/uL 04/01/2019 4:41 PM T [facility] 04/01/2019 3:51 PM CDT us Linda Mcnamara MD LABORATORY Final Result [facility] [address] [place] [address], [place] [phone] documented in this encounter Visit Diagnoses Diagnosis Pre-op exam- Primary Preoperative examination, unspecified documented in this encounter Care Teams Associate Director Regulatory Affairs Relationship Specialty Start Date End Date Lewis Santillan DO [address] [place] [address] PCP - General FAMILY PRACTICE 02/07/19 documented as of this encounter
[2024-12-12 17:01] LABS: LDL Cholesterol Direct < 30 mg/dL
[2024-12-12 17:35] LABS: Hemoglobin A1C 6.5 % (<5.7)
== END 2024-12-12 14:18 | disposition home or self-care (01) ==
PROVIDERS: PCP Internal Medicine; Visit Provider Internal Medicine
DX: I10 Essential (primary) hypertension (principal); E11.9 Type 2 diabetes mellitus without complications
CPT/HCPCS: 36415; 80053; 80061; 83036; 85025

== ENCOUNTER 2025-07-03 15:56 | Outpatient (CLI) | payer OTHER, SELFPAY ==
--- OUTSIDE RECORDS SUMMARY | 1999-10-01 19:00 | XMS_ITS | Continuity of Care Document ---
Author Organization [facility] Address [address] [place] [address] Phone Care Team Providers Care Cyber Systems Engineer Name Role Phone No Information Unavailable Unavailable Medications Medication Instructions Dosage Effective Dates (start - stop) Status Comments No Drug Therapy Prescribed Advance Directives Directive Yes / No Effective Date File Name No Information Encounters Encounter Description Practice Location Reason(s) For Visit Diagnoses Date Provider Providers Copied on Encounter [facility], [address] [place] [address], [id number], [place] tel:[phone] No Information No Information Family History Family Member Type Diagnosis Age At Onset No Information Payers Payer name Insurance type Covered libertarian ID Authoriza tion(s) No Information Social History Type Description Quantity Date Captured Comments Sex Female Smoking Status No Information Chief Complaint And Reason For Visit No Information History Of Present Illness Encounter Date Complaint History Of Prese nt Illness No Information Medications Administered Medication Instructions Dosage Effective Dates (start - stop) Status Comments No Drug Therapy Prescribed Instructions Date Instruction Additional Infor mation No Information Assessments Type Assessment Date No Information
--- NOTE | ~2025-07-03 | MM_ITS ---
EXAMINATION: MM screening cherise BI w eli HISTORY: Screening TECHNIQUE: Craniocaudal and mediolateral oblique 3-D tomosynthesis images were obtained and synthetic 2-D images were generated. CAD analysis was submitted and interpreted. COMPARISON: No prior mammogram is available for comparison at this institution. BREAST PARENCHYMAL COMPOSITION: Dense: The breasts are heterogeneously dense, which may obscure small masses FINDINGS: There are scattered nodular asymmetries throughout both breasts. There are no suspicious calcifications or architectural distortion. IMPRESSION: 1. Scattered bilateral nodular asymmetries. 2. Recommend comparison to previous outside mammograms. If prior mammograms are not available, correlation with bilateral complete ultrasound recommended. BI-RADS Category 0: Incomplete: Needs additional imaging evaluation. Reviewed, dictated and finalized at location B.
--- OUTSIDE RECORDS SUMMARY | 2025-07-03 16:00 | XMS_ITS | Data Portability ---
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 Pillar Man variances may occur. Despite proofreading, typographical errors may occur. Occasional wrong-word or s ound-a-like substitutions may have occurred due to the inherent limitations of voice recording. Read the chart carefully and recognize, using context, where substitutions have occurred. Not available 09/20/2023 12:25:10 03/11/2024 03/11/2024 This note is dictated and transcribed by [employer]. Pillar Man variances may occur. Despite proofreading, typographical errors may occur. Occasional wrong-word or 'takxe-u-xsvg' substitutions may have occurred due to the inherent limitations of voice recording. Read the chart carefully and recognize, using context, where substitutions have occurred. Not available 03/11/2024 16:39:15 Plan of Treatment Reminders Order Date Submit Date Provider Last Modified By Organization Details Last Modified Time Details Appointments None recorded. Lab glycohemogl obin, total, blood 2022 023 [facility] (Lab), [address] [place], [address], 3 15:10:17 CMP, serum or plasma 2022 023 [facility] (Lab), [address] [place], [address], 3 11:22:24 lipid panel, serum 2022 023 [facility] (Lab), [address] [place], [address], 3 11:22:29 Referral None recorded. Procedures None recorded. Surgeries None recorded. Imaging XR, foot, 3 or more view 2023 024 [email or web address] 7 [facility], [address], [place], [address], 4 14:46:50 MRI, foot, w/o contrast - pain sub 2nd met head and MTPJ 2023 024 [facility], [address], [place], [address], 4 19:39:36 XR, foot, 3 or more view 2022 023 [email or web address] [place], [address], [place], [address], 3 12:29:15 XR, foot, 3 or more view 2022 023 [email or web address] [facility] [place], [address], [place], [address], 3 12:29:15 Medication Orders diclofenac sodium 75 mg tablet,zeeshan yed release 2023 024 [facility], [address] [place] [address], [address], [place], [place], [id number], 4 17:22:08 diclofenac sodium 75 mg tablet,zeeshan yed release 2022 023 [facility], [address], [address], [place], [place], [id number], 3 18:33:57 Patient TargetsNo targets recorded. Patient [...] 2016, 39(Henao ppl.1 ):s13 -s22 Not Available [facility] (Lab) [address] [place], [address], 11/17/2022 18:37:29 11/17/19 23 11/17/2022 COMPR EHENS ELYSIA METAB OLIC PANEL carbon dioxide 27 mmol/ L 22-30 Not Available [facility] (Lab) [address] [place], [address], 11/17/2022 13:24:33 11/17/19 23 11/17/2022 COMPR EHENS ELYSIA METAB OLIC PANEL sodium 138 mmol/ L 137-14 5 Not Available [facility] (Lab) [address] [place], [address], 11/17/2022 13:24:33 11/17/19 23 11/17/2022 COMPR EHENS ELYSIA METAB OLIC PANEL potassium 3.8 mmol/ L 3.5-5. 1 Not Available [facility] (Lab) [address] [place], [address], 11/17/2022 13:24:33 11/17/19 23 11/17/2022 COMPR EHENS ELYSIA METAB OLIC PANEL chloride 101 mmol/ L 98-107 Not Available [facility] (Lab) [address] [place], [address], 11/17/2022 13:24:33 11/17/19 23 11/17/2022 COMPR EHENS ELYSIA METAB OLIC PANEL anion gap 13.8 mmol/ L 14-22 low Not Available [facility] (Lab) [address] [place], [address], 11/17/2022 13:24:33 11/17/19 23 11/17/2022 COMPR EHENS ELYSIA METAB OLIC PANEL glucose 105 mg/dL 70-99 high Not Available [facility] (Lab) [address] [place], [address], 11/17/2022 13:24:33 11/17/19 23 11/17/2022 COMPR EHENS ELYSIA METAB OLIC PANEL BUN 13 mg/dL 8-19 Not Available [facility] (Lab) [address] [place], [address], 11/17/2022 13:24:33 11/17/19 23 11/17/2022 COMPR EHENS ELYSIA METAB OLIC PANEL creatinine 0.48 mg/dL 0.66-1 .25 low Not Available [facility] (Lab) [address] [place], [address], 11/17/2022 13:24:33 11/17/19 23 11/17/2022 COMPR EHENS ELYSIA METAB OLIC PANEL GFR >60 Refer ence Range : [place] ge GFR Healt hy Adult : >60 [...] calcu lator is avail able on the [facility] websi te: https ://ainsley w.alice jarvis.o rg/pr ofess ional s/kdo qi/gf r_cal culat or Not Available [facility] (Lab) [address] [place], [address], 11/17/2022 13:24:33 11/17/19 23 11/17/2022 COMPR EHENS ELYSIA METAB OLIC PANEL alkaline phosphatase 81 U/L 38-126 Not Available [facility] (Lab) [address] [place], [address], 11/17/2022 13:24:33 11/17/19 23 11/17/2022 COMPR EHENS ELYSIA METAB OLIC PANEL alanine aminotransfe rase 28 U/L 0-35 Not Available [facility] (Lab) [address] [place], [address], 11/17/2022 13:24:33 11/17/19 23 11/17/2022 COMPR EHENS ELYSIA METAB OLIC PANEL aspartate aminotransfe rase 30 U/L 15-37 Not Available [facility] (Lab) [address] [place], [address], 11/17/2022 13:24:33 11/17/19 23 11/17/2022 COMPR EHENS ELYSIA METAB OLIC PANEL bilirubin, total 2.10 mg/dL 0.20-1 .30 high Not Available [facility] (Lab) [address] [place], [address], 11/17/2022 13:24:33 11/17/19 23 11/17/2022 COMPR EHENS ELYSIA METAB OLIC PANEL calcium 9.1 mg/dL 8.4-10 .2 Not Available [facility] (Lab) [address] [place], [address], 11/17/2022 13:24:33 11/17/19 23 11/17/2022 COMPR EHENS ELYSIA METAB OLIC PANEL total protein 6.8 g/dL 6.3-8. 2 Not Available [facility] (Lab) [address] [place], [address], 11/17/2022 13:24:33 11/17/19 23 11/17/2022 COMPR EHENS ELYSIA METAB OLIC PANEL albumin 4.3 g/dL 3.4-5. 0 Not Available [facility] (Lab) [address] [place], [address], 11/17/2022 13:24:33 11/17/19 23 11/17/2022 COMPR EHENS ELYSIA METAB OLIC PANEL globulin 2.5 g/dL 2.6-4. 2 low Not Available [facility] (Lab) [address] [place], [address], 11/17/2022 13:24:33 11/17/19 23 11/17/2022 COMPR EHENS ELYSIA METAB OLIC PANEL A/G ratio 1.7 ratio 1.0-2. 0 Not Available [facility] (Lab) [address] [place], [address], 11/17/2022 13:24:33 11/17/19 23 11/17/2022 LIPID PANEL [...] WILL NOT BE REPOR EMILIE. Not Available [facility] (Lab) [address] [place], [address], 11/17/2022 13:24:22 11/17/19 23 11/17/2022 LIPID PANEL cholesterol 113 mg/dL 140-19 9 low NIH ALEX NSUS RECOM MENDA TION FOR JACKY STERO L: ADULT CHILD LOW RISK: <200 <170 BORDE RLINE : <200- 239 ----- HIGH RISK: >240 >200 Not Available [facility] (Lab) [address] [place], [address], 11/17/2022 13:24:22 11/17/19 23 11/17/2022 LIPID PANEL triglyceride s 237 mg/dL 0-150 high NIH ALEX NSUS REPOR T RECOM MENDA TION FOR TRIGL YCERI DESIREE: ADULT CHILD LOW RISK: <150 ----- BODER LINE: 150-1 99 ----- HIGH RISK: >200 ----- Not Available [facility] (Lab) [address] [place], [address], 11/17/2022 13:24:22 11/17/19 23 11/17/2022 LIPID PANEL HDL cholesterol 40 mg/dL 40- Not Available [facility] (Lab) [address] [place], [address], 11/17/2022 13:24:22 11/17/19 23 11/17/2022 CBC/C OMPLE TE BLD COUNT W/DIF F mean red cell hemoglobin 28.6 pg 27.0-3 3.0 Not Available [facility] (Lab) [address] [place], [address], 11/17/2022 12:56:18 11/17/19 23 11/17/2022 CBC/C OMPLE TE BLD COUNT W/DIF F white blood cells 6.2 x10'3 /uL 4.2-10 .8 Not Available [facility] (Lab) [address] [place], [address], 11/17/2022 12:56:18 11/17/19 23 11/17/2022 CBC/C OMPLE TE BLD COUNT W/DIF F red blood cells 4.44 x10'6 /uL 3.80-5 .20 Not Available [facility] (Lab) [address] [place], [address], 11/17/2022 12:56:18 11/17/19 23 11/17/2022 CBC/C OMPLE TE BLD COUNT W/DIF F hemoglobin 12.7 g/dL 12.0-1 5.6 Not Available [facility] (Lab) [address] [place], [address], 11/17/2022 12:56:18 11/17/19 23 11/17/2022 CBC/C OMPLE TE BLD COUNT W/DIF F hematocrit 38.5 % 35.7-4 5.7 Not Available [facility] (Lab) [address] [place], [address], 11/17/2022 12:56:18 11/17/19 23 11/17/2022 CBC/C OMPLE TE BLD COUNT W/DIF F mean red cell volume 86.7 fL 82.0-9 9.0 Not Available [facility] (Lab) [address] [place], [address], 11/17/2022 12:56:18 11/17/19 23 11/17/2022 CBC/C OMPLE TE BLD COUNT W/DIF F mean RBC HGB concentratio n 33.0 g/dL 31.0-3 6.0 Not Available [facility] (Lab) [address] [place], [address], 11/17/2022 12:56:18 11/17/19 23 11/17/2022 CBC/C OMPLE TE BLD COUNT W/DIF F red cell distribution width 12.0 % 11.8-1 5.5 Not Available [facility] (Lab) [address] [place], [address], 11/17/2022 12:56:18 11/17/19 23 11/17/2022 CBC/C OMPLE TE BLD COUNT W/DIF F platelets 192 x10'3 /uL 150-40 0 Not Available [facility] (Lab) [address] [place], [address], 11/17/2022 12:56:18 11/17/19 23 11/17/2022 CBC/C OMPLE TE BLD COUNT W/DIF F mean platelet volume 10.1 fL 9.0-12 .4 Not Available [facility] (Lab) [address] [place], [address], 11/17/2022 12:56:18 11/17/19 23 11/17/2022 CBC/C OMPLE TE BLD COUNT W/DIF F neutrophils 56.9 % 39.0-7 2.0 Not Available [facility] (Lab) [address] [place], [address], 11/17/2022 12:56:18 11/17/19 23 11/17/2022 CBC/C OMPLE TE BLD COUNT W/DIF F lymphocytes 34.8 % 16.0-4 7.0 Not Available [facility] (Lab) [address] [place], [address], 11/17/2022 12:56:18 11/17/19 23 11/17/2022 CBC/C OMPLE TE BLD COUNT W/DIF F monocytes 6.7 % 5.0-12 .0 Not Available [facility] (Lab) [address] [place], [address], 11/17/2022 12:56:18 11/17/19 23 11/17/2022 CBC/C OMPLE TE BLD COUNT W/DIF F eosinophils 1.1 % 1.0-7. 0 Not Available [facility] (Lab) [address] [place], [address], 11/17/2022 12:56:18 11/17/19 23 11/17/2022 CBC/C OMPLE TE BLD COUNT W/DIF F basophils 0.3 % 0.0-2. 0 Not Available [facility] (Lab) [address] [place], [address], 11/17/2022 12:56:18 11/17/19 23 11/17/2022 CBC/C OMPLE TE BLD COUNT W/DIF F immature granulocytes 0.2 % 0.00-0 .50 Not Available [facility] (Lab) [address] [place], [address], 11/17/2022 12:56:18 11/17/19 23 11/17/2022 CBC/C OMPLE TE BLD COUNT W/DIF F neutrophils, absolute count 3.55 x10'3 /uL 1.5-8. 0 Not Available [facility] (Lab) [address] [place], [address], 11/17/2022 12:56:18 11/17/19 23 11/17/2022 CBC/C OMPLE TE BLD COUNT W/DIF F lymphocytes, absolute count 2.17 x10'3 /uL 1.07-3 .43 Not Available [facility] (Lab) [address] [place], [address], 11/17/2022 12:56:18 11/17/19 23 11/17/2022 CBC/C OMPLE TE BLD COUNT W/DIF F monocytes, absolute count 0.42 x10'3 /uL 0.29-0 .99 Not Available [facility] (Lab) [address] [place], [address], 11/17/2022 12:56:18 11/17/19 23 11/17/2022 CBC/C OMPLE TE BLD COUNT W/DIF F eosinophils, absolute count 0.07 x10'3 /uL 0.02-0 .53 Not Available [facility] (Lab) [address] [place], [address], 11/17/2022 12:56:18 11/17/19 23 11/17/2022 CBC/C OMPLE TE BLD COUNT W/DIF F basophils, absolute count 0.02 x10'3 /uL 0.01-0 .08 Not Available [facility] (Lab) [address] [place], [address], 11/17/2022 12:56:18 11/17/19 23 11/17/2022 CBC/C OMPLE TE BLD COUNT W/DIF F immature granulocytes ,absolute 0.01 x10'3 /uL 0.00-0 .05 Not Available [facility] (Lab) [address] [place], [address], 11/17/2022 12:56:18 11/17/19 23 11/17/2022 CBC/C OMPLE TE BLD COUNT W/DIF F nucleated red blood cells 0.0 % -0 Not Available [facility] (Lab) [address] [place], [address], 11/17/2022 12:56:18 11/17/19 23 11/17/2022 CBC/C OMPLE TE BLD COUNT W/DIF F NRBC# 0.00 x10'3 /uL Not Available [facility] (Lab) [address] [place], [address], 11/17/2022 12:56:18 07/22/2007/22/2023 COMPR EHENS ELYSIA METAB OLIC PANEL sodium 137 mmol/ L 137-14 5 Not Available [facility] (Lab) [address] [place], [address], 07/22/2023 11:22:24 07/22/20 23 07/22/2023 COMPR EHENS ELYSIA METAB OLIC PANEL potassium 4.3 mmol/ L 3.5-5. 1 Not Available [facility] (Lab) [address] [place], [address], 07/22/2023 11:22:24 07/22/2007/22/2023 COMPR EHENS ELYSIA METAB OLIC PANEL chloride 102 mmol/ L 98-107 Not Available [facility] (Lab) [address] [place], [address], 07/22/2023 11:22:24 07/22/20 23 07/22/2023 COMPR EHENS ELYSIA METAB OLIC PANEL carbon dioxide 27 mmol/ L 22-30 Not Available [facility] (Lab) [address] [place], [address], 07/22/2023 11:22:24 07/22/20 23 07/22/2023 COMPR EHENS ELYSIA METAB OLIC PANEL anion gap 12.3 mmol/ L 14-22 low Not Available [facility] (Lab) [address] [place], [address], 07/22/2023 11:22:24 07/22/20 23 07/22/2023 COMPR EHENS ELYSIA METAB OLIC PANEL glucose 120 mg/dL 70-99 high Not Available [facility] (Lab) [address] [place], [address], 07/22/2023 11:22:24 07/22/20 23 07/22/2023 COMPR EHENS ELYSIA METAB OLIC PANEL BUN 13 mg/dL 8-19 Not Available [facility] (Lab) [address] [place], [address], 07/22/2023 11:22:24 07/22/20 23 07/22/2023 COMPR EHENS ELYSIA METAB OLIC PANEL creatinine 0.57 mg/dL 0.66-1 .25 low Not Available [facility] (Lab) [address], [place], [address], 07/22/2023 11:22:24 07/22/2007/22/2023 COMPR EHENS ELYSIA METAB OLIC PANEL GFR >60 Refer ence Range : [place] ge GFR Healt hy Adult : >60 [...] or ethni c subgr oups, such as ok nics. Outsi de the valid ated andrew [...] calcu lator is avail able on the [facility] websi te: https ://ainsley jarvis.o rg/pr ofess ional s/kdo qi/gf r_cal culat or Not Available [facility] (Lab) [address] [place], [address], 07/22/2023 11:22:24 07/22/2007/22/2023 COMPR EHENS ELYSIA METAB OLIC PANEL alkaline phosphatase 89 U/L 38-126 Not Available [facility] (Lab) [address] [place], [address], 07/22/2023 11:22:24 07/22/20 23 07/22/2023 COMPR EHENS ELYSIA METAB OLIC PANEL alanine aminotransfe rase 21 U/L 0-35 Not Available [facility] (Lab) [address] [place], [address], 07/22/2023 11:22:24 07/22/20 23 07/22/2023 COMPR EHENS ELYSIA METAB OLIC PANEL aspartate aminotransfe rase 25 U/L 15-37 Not Available [facility] (Lab) [address] [place], [address], 07/22/2023 11:22:24 07/22/20 23 07/22/2023 COMPR EHENS ELYSIA METAB OLIC PANEL bilirubin, total 1.30 mg/dL 0.20-1 .30 Not Available [facility] (Lab) [address] [place], [address], 07/22/2023 11:22:24 07/22/20 23 07/22/2023 COMPR EHENS ELYSIA METAB OLIC PANEL calcium 9.3 mg/dL 8.4-10 .2 Not Available [facility] (Lab) [address] [place], [address], 07/22/2023 11:22:24 07/22/20 23 07/22/2023 COMPR EHENS ELYSIA METAB OLIC PANEL total protein 6.8 g/dL 6.3-8. 2 Not Available [facility] (Lab) [address] [place], [address], 07/22/2023 11:22:24 07/22/2007/22/2023 COMPR EHENS ELYSIA METAB OLIC PANEL albumin 4.1 g/dL 3.4-5. 0 Not Available [facility] (Lab) [address] [place], [address], 07/22/2023 11:22:24 07/22/2007/22/2023 COMPR EHENS ELYSIA METAB OLIC PANEL globulin 2.7 g/dL 2.6-4. 2 Not Available [facility] (Lab) [address] [place], [address], 07/22/2023 11:22:24 07/22/2007/22/2023 COMPR EHENS ELYSIA METAB OLIC PANEL A/G ratio 1.5 ratio 1.0-2. 0 Not Available [facility] (Lab) [address] [place], [address], 07/22/2023 11:22:24 07/22/2007/22/2023 LIPID PANEL cholesterol 136 mg/dL 140-19 9 low NIH ALEX NSUS RECOM MENDA TION FOR JACKY STERO L: ADULT CHILD LOW RISK: <200 <170 BORDE RLINE : <200- 239 ----- HIGH RISK: >240 >200 Not Available [facility] (Lab) [address] [place], [address], 07/22/2023 11:22:29 07/22/2007/22/2023 LIPID PANEL triglyceride s 279 mg/dL 0-150 high NIH ALEX NSUS REPOR T RECOM MENDA TION FOR TRIGL YCERI DESIREE: ADULT CHILD LOW RISK: <150 ----- BODER LINE: 150-1 99 ----- HIGH RISK: >200 ----- Not Available [facility] (Lab) [address] [place], [address], 07/22/2023 11:22:29 07/22/20 23 07/22/2023 LIPID PANEL HDL cholesterol 45 mg/dL 40- Not Available [facility] (Lab) [address] [place], [address], 07/22/2023 11:22:29 07/22/20 23 07/22/2023 LIPID PANEL [...] WILL NOT BE REPOR EMILIE. Not Available [facility] (Lab) [address] [place], [address], 07/22/2023 11:22:29 07/22/2007/22/2023 HEMOG LOBIN A1C HA1C 6.3 % 4.0-6. 0 high Diabe alejandra Scree kludeep Crite kerrie: <5.7% Consi stent with absen ce of diabe alejandra 5.7-6 .4% Consi stent with incre ased risk for diabe alejandra (pred iabet es) >OR=6 .5% Consi stent with diabe alejandra REFER ENCE: Diabe alejandra Care 2016, 39(Henao ppl.1 ):s13 -s22 Not Available [facility] (Lab) [address] [place], [address], 07/22/2023 15:10:17 11/17/19 23 11/17/2022 CT, neck, soft tissu e, w/ contr ast [facility] [address] [place] [address] Patien t Name: WILMAN BANEGAS Access ion #: [id number] Sex: F : 1969 2 Locati on: [...] marker s are Page 1 of 3 [facility] Patien t Name: WILMAN BANEGAS Access ion #: [id number] Sex: F : 1969 2 Exam [...] arteri es, verteb ral arteri es, and undergraduate intern al jugula r veins are patent [...] more levels . Page 2 of 3 [facility] t Name: WILMAN BANEGAS Access ion #: [id number] Sex: F : 1969 2 Exam Date: 12:50 PM Exam Name: CT SOFT TISSUE NECK W Admitt ing Diagno sis(es ): Create d and electr onical ly signed by: Stanford guerrero MD Signed Date: 4:15 PM (CT) Dictat ed by: Stanford guerrero MD DD: 023 4:15 PM (CT) DT: 023 4:15 PM (CT) Page 3 of 3 [id number] [facility] (Imaging) [address], [place], [address], 11/30/2022 09:00:24 12/03/19 23 12/01/2022 MRI, cervi jose spine , w/o contr ast [facility] [address], [place] [address] Patien t Name: WILMAN BANEGAS Access ion #: [id number] Sex: F : 1969 1 Locati [...] the odonto id. Page 1 of 3 [facility] Patitremayne t Name: WILMAN BANEGAS Access ion #: [id number] Sex: F : 1969 1 Exam [...] ial broad disc bulge, most promin ent gore maker iorly, measur ing 4 mm AP in the midlin e. The AP dimens ion of the spinal canal measur es 5.1 mm. There is mass effect on the anteri or and gore maker ior margin s of the cervic al spinal cord at this level. There is bilate ral facet and uncina te proces s hypert rophy. There is modera te to severe bilate ral neural forami nal stenos is. Page 2 of 3 [facility] Name: WILMAN BANEGAS Access ion #: [id number] Sex: F : 1969 1 Exam [...] signed by: Stanford guerrero MD Signed Date: 12/03/19 8:03 AM (CT) Dictat ed by: Stanford guerrero MD (CT) (CT) Page 3 of [address] [facility] ([facility] [address] [place], [address], 12/12/2022 12:36:18 09/20/20 23 XR, foot, 3 or more view No observ ation record ed. [email or web address] [facility] [place] [address], [place], [address], 09/20/2023 12:28:06 09/20/20 23 XR, foot, 3 or more view No observ ation record ed. [email or web address] [facility] [place] [address] [facility] [address], [place], [address], 09/20/2023 12:29:09 03/21/20 24 03/20/2024 MRI, foot, w/o contr ast No observ ation record ed. [email or web address] [facility] [address] [facility] [address], [place], [address], 03/25/2024 10:28:27 03/27/20 24 XR, foot, 3 or more view No observ ation record ed. [email or web address] [facility] [place] [address] [facility] [address], [place], [address], 03/27/2024 14:46:47 Result Notes Documentation Provider Name and Address Organization Details Recorded Time Ct, Neck, Soft Tissue, W/ Contrast : [address] [address] Patient Name: WILMAN CORTES Sex: F : 1970 Location: [facility] Attending Physician: MARILU SANTILLAN Ordering Physician: MARILU SANTILLAN Exam Date: 11/17/2022 12:50 PM Exam Name: CT SOFT TISSUE NECK W Admitting Diagnosis(es): RADIOLOGY REPORT - FINAL EXAM: CT SOFT TISSUE NECK W HISTORY: lesion on neck 52-year-old female with bilateral neck palpable abnormalities, sometimes painful. COMPARISON: None available. TECHNIQUE: Helical CT images of the neck were performed with 100 ml Isovue 300 IV contrast. Sagittal and coronal reformatted images were obtained. This CT exam was performed using one or more of the following dose reduction techniques: Automated exposure control, adjustment of the mA and/or kV according to patient size, or use of iterative reconstruction technique. FINDINGS: No radiologically significant cervical adenopathy or mass. Skin markers are Page 1 of 3 [facility] Patient Name: WILMAN CORTES Sex: F : 1970 Exam Date: 11/17/2022 12:50 PM Exam Name: CT SOFT TISSUE NECK W Admitting Diagnosis(es): present in the bilateral submandibular regions denoting the locations of the patient's palpable abnormalities, and these are superficial to normal appearing submandibular glands (images 31-32, series 201). The airway is patent. The vocal cords are symmetric. No abnormal thickening of the epiglottis. There are punctate calcifications in the bilateral palatine tonsils. The palatine and lingual tonsils are hypertrophic without significant airway narrowing. The parotid glands, submandibular glands, and thyroid are unremarkable. The partially-visualized paranasal sinuses, middle ear spaces, and mastoid air cells are clear. The bilateral carotid arteries, vertebral arteries, and internal jugular veins are patent. Bovine aortic arch is incidentally noted. The lung apices are clear. 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 There is moderate to severe degenerative disc disease and mild facet arthropathy. The AP dimension of the spinal canal measures 6 mm at C6-C7. There is significant neural foraminal stenosis bilaterally at C6-C7. IMPRESSION: 1. Skin markers are superficial to the bilateral submandibular glands, both of which appear normal. 2. No radiologically significant cervical adenopathy or mass. 3. Hypertrophy of the palatine and lingual tonsils without significant airway narrowing. 4. 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 There is also significant neural foraminal stenosis bilaterally at C6-C7. Recommend follow-up noncontrast MRI of the cervical spine for better characterization as there is likely mass effect on the cervical spinal cord at 1 or more levels. Page 2 of 3 [facility] Patient Name: WILMAN CORTES Sex: F : 1970 Exam Date: 11/17/2022 12:50 PM Exam Name: CT SOFT TISSUE NECK W Admitting Diagnosis(es): Created and electronically signed by: Stanford Dominguez MD Signed Date: 11/17/2022 4:15 PM (CT) Dictated by: Stanford Dominguez MD (CT) (CT) Page 3 of 3 Not Available [facility] 11/30/2022 09:00:25 Mri, Cervical Spine, W/o Contrast : [address] [address] Patient Name: WILMAN CORTES Sex: F : 1970 Location: [facility] Attending Physician: MARILU SANTILLAN Ordering Physician: MARILU SANTILLAN Exam Date: 12/01/2022 4:50 PM Exam Name: MRI C SPINE WO Admitting Diagnosis(es): RADIOLOGY REPORT - FINAL EXAM: MRI C SPINE WO HISTORY: neck pain 52-year-old female with neck pain and left hand numbness. COMPARISON: CT scan of the soft tissue neck dated 11/17/2022. TECHNIQUE: Multiplanar multisequence noncontrast MR images of the cervical spine were performed. FINDINGS: No fracture or listhesis in the cervical spine. 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 No evidence of cerebellar tonsillar ectopia. No abnormal signal in the cervical spinal cord. There are cystic changes of the base of the odontoid. Page 1 of 3 [facility] Patient Name: WILMAN CORTES Sex: F : 1970 Exam Date: 12/01/2022 4:50 PM Exam Name: MRI C SPINE WO Admitting Diagnosis(es): C2-C3: No significant discopathy, spinal canal stenosis, or neural foraminal stenosis bilaterally. C3-C4: There is mild loss of disc height. There is a circumferential broad disc bulge with endplate hypertrophy. There is bilateral facet hypertrophy. The AP dimension of the spinal canal measures 7.3 mm. There is mild mass effect on the anterior margin of the cervical spinal cord at this level. No significant neural foraminal stenosis bilaterally. C4-C5: There is mild loss of disc height. There is a mild circumferential broad disc bulge. There is bilateral facet hypertrophy, greater on the left. The AP dimension of the spinal canal measures 7.5 mm. There is mild flattening of the anterior margin of the cervical spinal cord at this level. There is mild bilateral neural foraminal stenosis. C5-C6: There is a circumferential broad disc bulge with endplate hypertrophy, most prominent in the right preforaminal region. The AP dimension of the spinal canal measures 8.5 mm in the midline. There is mild mass effect on the right anterior margin of the cervical spinal cord at this level. There is bilateral facet hypertrophy. There is right uncinate process hypertrophy. There is mild right and no significant left neural foraminal stenosis. C6-C7: There is disc desiccation and loss of disc height. There is a circumferential broad disc bulge, most prominent posteriorly, measuring 4 mm AP in the midline. The AP dimension of the spinal canal measures 5.1 mm. There is mass effect on the anterior and posterior margins of the cervical spinal cord at this level. There is bilateral facet and uncinate process hypertrophy. There is moderate to severe bilateral neural foraminal stenosis. Page 2 of 3 [facility] Patient Name: WILMAN CORTES Sex: F : 1970 Exam Date: 12/01/2022 4:50 PM Exam Name: MRI C SPINE WO Admitting Diagnosis(es): IMPRESSION: 1. No fracture of the cervical spine. 2. 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 There is mass effect on the cervical spinal cord at multiple levels, greatest at C6-C7. Recommend spinal surgery consultation if not already obtained. 3. Degenerative disc disease and facet arthropathy with significant neural foraminal stenosis bilaterally at C6-C7. These findings may correspond to upper extremity radicular symptoms in the C7 nerve root distributions. 4. Cystic changes of the base of the odontoid may be due to degenerative changes of the predental joint. Rheumatoid arthritis can cause this appearance. Created and electronically signed by: Stanford Dominguez MD Signed Date: 12/02/2022 8:03 AM (CT) Dictated by: Stanford Dominguez MD (CT) (CT) Page 3 of 3 Kerry Shannon RN null, [place] [facility] 12/12/2022 12:36:18 Problems Name Problem SNOMED Code Status Onset Date Resolution Date Notes Provider Name and Address Organization Details Recorded Time Pain in upper limb 858026631 Completed Not Available [facility] 3 08:56:54 Candidias is of vulva 8629752 Active Not Available [facility] 3 05:38:30 Radiother apy follow-up 935400155 Active Not Available [facility] 3 05:38:30 Abdominal pain 82578245 Completed Not Available [facility] 3 08:56:55 Trichomon al cerviciti s 20941028 Active Not Available [facility] 3 05:38:30 Gastroeso phageal reflux disease 672661112 Completed Not Available [facility] 3 08:56:55 Edema 527884730 Completed Not Available [facility] 3 08:56:55 Pure hyperchol esterolem ia 268203008 Active Not Available [facility] 3 05:38:30 Breasts asymmetri jose 098690166 Active Not Available [facility] 3 05:38:31 Vaginal discharge 831806968 Completed Not Available [facility] 3 08:56:55 Pain in left knee Completed Not Available [facility] 3 08:56:55 Nausea 451787640 Completed Not Available [facility] 3 08:56:56 Carpal tunnel syndrome 68517534 Active Not Available [facility] 3 05:38:31 Rhinitis 27782927 Completed Not Available [facility] 3 08:56:57 Hemorrhoi ds 99248271 Completed Not Available [facility] 3 08:56:57 Snoring 66414992 Active Not Available [facility] 3 05:38:31 Diabetes mellitus 52043830 Active Not Available [facility] 3 05:38:31 Serum cholester ol very high 455104595 Active 2017 Not Available [facility] 3 05:38:30 Pain of left heel 83792102642 28705 Active 2021 Not Available [facility] 3 05:38:30 Bunion 132141452 Active 2021 Not Available [facility] 3 05:38:31 Bunion 473502872 Active 2021 Not Available [facility] 3 05:38:31 Type 2 diabetes mellitus 30769722 Active 2021 Not Available [facility] 3 05:38:31 Allergic rhinitis 27543860 Active 2021 Not Available [facility] 3 05:38:31 COVID-19 693826899 Active 2021 Not Available [facility] 3 05:38:31 Nail bed infection 73136478 Active 2021 Not Available [facility] 3 05:38:31 Pain in left foot 23703288220 9107 Active 2021 Not Available [facility] 3 05:38:31 Postopera tive care Active 2021 Not Available [facility] 3 05:38:30 Tendiniti s of foot 140518751 Active 2021 Not Available [facility] 3 05:38:31 Pain of scar 425891750 Active 2021 Not Available [facility] 3 05:38:31 Paresthes ia of foot 771749422 Active 2021 Not Available [facility] 3 05:38:31 Acute urinary tract infection 467530693 Active 2021 Not Available [facility] 3 05:38:31 Urinary tract infectiou s disease 47499543 Active 2021 Not Available [facility] 3 05:38:31 Lesion of neck 090824706 Active 2022 Not Available [facility] 3 05:38:31 Arthritis 6309357 Active 2022 Not Available [facility] 3 05:38:31 Spinal stenosis in cervical region 42680033 Active 2022 Not Available [facility] 3 05:38:31 Essential hypertens ion 51552415 Active 2022 Not Available [facility] 3 05:38:31 Type 2 diabetes mellitus without complicat ion 550672745 Active 2022 Not Available [facility] 3 05:38:31 Metatarsa lgia 32881198 Active 2022 Chucho Odonnell DPM [address], [address], [place], [address] , [employer] 3 18:33:14 Dysuria 62985726 Active 2023 Cynthia Trinidad RN [facility], [employer] 4 11:25:07 Metatarsa lgia 31670962 Active 2023 Chucho Odonnell DPM [address], [address], [place], [address] , [employer] 4 16:38:32 Hammer toe 459769213 Active 2023 Chucho Odonnell DPM [address], [address], [place], [address] , [employer] 4 16:38:38 Problem Notes None recorded. Procedures Surgical History Date Name Laterality Status Provider Name and Address Organization Details Recorded Time 05/12/20 21 Most Recent Mammogram completed Not Available [facility] 11/30/2022 08:53:49 01/21/20 21 Date of Last Pap Smear completed Not Available [facility] 11/30/2022 08:53:49 05/02/20 19 Carpal tunnel surgery completed Not Available [facility] 11/30/2022 08:53:50 04/18/20 19 Laparoscopic cholecystectomy completed Not Available [facility] 11/30/2022 08:53:50 09/20/20 17 Orthopedic Surgery completed Not Available [facility] 11/30/2022 08:53:50 05/02/20 11 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 Procedure Notes None recorded. Medical Equipment None [...] DAILY 05/02 completed taking 1mg - per boiler blower Not Available Not Available Not Available ibuprofen [...] QNASL 80 mcg/actuat ion nasal aerosol spray [place] 2 spray(s) each nostril daily 03/19 completed Not Available Not Available Not Available Flonase Allergy Relief 50 mcg/actuat ion nasal spray,susp ension [place] 2 sprays every day by intranas al [...] No t Available Vitals Date Recorded Body height Body mass index (BMI) Body weight Heart rate Respiratory rate Oxygen saturation Oxygen saturation in Arterial blood by Pulse oximetry Systolic And Diastolic Provider Name and Address Organization Details Last Updated DateTime 4 152.4 cm 35.5 kg/m2 75305.8 1 g 74 /min 14 /min 98 % 98 % 143/76 mm[Hg] Leonor Fofana [facility] [employer] 4 17:09:15 Date Recorded Body mass index (BMI) Body height Heart rate Body temperature Body weight Systolic And Diastolic Provider Name and Address Organization Details Last Updated DateTime 3 35 kg/m2 152.4 cm 83 /min 97.9 [degF] 40788.0 3 g 142/86 mm[Hg] Not Available [facility] 3 08:55:28 Date Recorded Body height Body mass index (BMI) Body weight Heart rate Respiratory rate Body temperature Oxygen saturation Oxygen saturation in Arterial blood by Pulse oximetry Systolic And Diastolic Provider Name and Address Organization Details Last Updated DateTime 4 152.4 cm 33.2 kg/m2 42858.7 g 83 /min 14 /min 97.9 [degF] 97 % 97 % 130/80 mm[Hg] Kianna Sylvester [place] [employer] [facility] [employer] 4 15:54:44 Date Recorded Body height Body weight Body temperature Heart rate Oxygen saturation Oxygen saturation in Arterial blood by Pulse oximetry Systolic And Diastolic Provider Name and Address Organization Details Last Updated DateTime 3 152.4 cm 56201.8 1 g 97.9 [degF] 88 /min 98 % 98 % 126/76 mm[Hg] Isidra Castellano RN [facility] [employer] 3 15:48:22 Date Recorded Body height Body mass index (BMI) Body weight Heart rate Respiratory rate Oxygen saturation Oxygen saturation in Arterial blood by Pulse oximetry Systolic And Diastolic Provider Name and Address Organization Details Last Updated DateTime 3 152.4 cm 35.5 kg/m2 45017.8 1 g 74 /min 14 /min 98 % 98 % 144/81 mm[Hg] Leonor Fofana [facility] [employer] [facility] 17:09:25 Social History Question Answer Notes LastModified by Organization Details LastModified Time Tobacco Smoking Status Never Smoker Julieth Vikram cam [facility] [employer] [facility] 09/14/2023 17:05:25 Do You Have An Advance Directive? No [id number] Information not available 11/30/2022 Do You Wear A Helmet When Biking? No Information not available 09/14/2023 What Is Your Level Of Caffeine Consumption? Occasional [id number] Information not available 11/30/2022 How Much Tobacco Do You Chew? None [id number] Information not available 11/30/2022 In The 14 [...] Of Diet Are You Following? REGULAR [id number] Information not available 11/30/2022 Which Illicit Or Recreational Drugs Have You Used? None Information not available 09/14/2023 What Is The Highest Grade Or Level Of School You Have Completed Or The Highest Degree You Have Received? [id number] Information not available 09/14/2023 Have There Been Any Changes To Your Family Or Social Situation? No Information not available 09/14/2023 What Is The Fluoride Status Of Your Home? Unknown Information not available 09/14/2023 Are There Any Guns Present In Your Home? No Information not available 09/14/2023 Do You Use Insect Repellent Routinely? No Information not available 09/14/2023 [facility] not available 09/14/2023 Do You Have A Medical Power Of Instrument Room Technician? No Information not available 09/14/2023 What Was The Date Of Your Most Recent Tobacco Screening? 05/02/2023 Information not available 09/14/2023 Have You Ever Been Counseled For Unhealthy Alcohol Use? No Information not available 09/14/2023 Do You Have Any Pets? Yes Information not available 09/14/2023 What Is Your Relationship Status? Domestic Partner [id number] Information not available 11/30/2022 Do You Use Your Seat Belt Or Car Seat Routinely? Yes Information not available 09/14/2023 Do You Have Smoke And Carbon Monoxide Detectors In Your Home? Yes Information not available 09/14/2023 Are You Passively Exposed To Smoke? Yes Information not available 09/14/2023 Are There Any Smokers In Your House? Yes Boyfriend Smokes Information not available 09/14/2023 How Much Tobacco Do You Smoke? No [id number] [id number] Information not available 11/30/2022 What Types Of Sporting Activities Do You Participate In? Shoots Pool Information not available 09/14/2023 Do You Use Sunscreen Routinely? Yes Information not available 09/14/2023 Has Tobacco Cessation Counseling Been Provided? No Not Needed-mirta r Smoked Information not available 09/14/2023 How Many Years Have You Smoked Tobacco? 0 Information not available 09/14/2023 Have You Recently Traveled Abroad? No Information not available 09/14/2023 Do You Have Any Dietary Restrictions? No Information not available 09/14/2023 Sex: Female Functional Status Question Answer Note LastModified by Organizat ion Details LastModified Time Do you use any illicit or recreational drugs? No Information not available 09/14/2023 Do you or have you ever used any other forms of tobacco or nicotine? No Information not available 09/14/2023 What is your level of alcohol consumption? Occasional [id number] Information not available 11/30/2022 Do you or have you ever used smokeless tobacco? Never used smokeless tobacco [id number] Information not available 11/30/2022 What is your occupation? [employer] Information not available 09/14/2023 Do you or have you ever used e-cigarettes or vape? Never used electronic cigarettes Information not available 09/14/2023 What is your exercise level? Occasional [id number] Information not available 11/30/2022 Mental Status Question Answer Note LastModified by Organization D etails LastModified Time Do you feel stressed (tense, restless, nervous, or anxious, or unable to sleep at night)? [id number] Information not available 09/14/2023 Family History Relationship Description Onset Age of this Age Resolved Age Notes LastModified by Organization Details LastModified Time Mother Diabetes mellitus [id number] Not available 11/30/2022 08:53:52 Mother Hypertensive disorder [id number] Not available 11/30/2022 08:53:52 Father Malignant neoplasm of prostate Not available 2022 17:05:25 Brother Hypertensive disorder [id number] Not available 11/30/2022 08:53:52 Medical History Condition [...] EYE PROBLEMS N EDEMA N HYPOTHYROIDISM N CAROTID BLOCKAGE N CONSTIPATION N MOOD DISORDER N BACK / NECK PROBLEMS N MIGRAINES N BREAST PROBLEMS Y POLYCYSTIC OVARIES N FIBROMYALGIA N OSTEOPOROSIS N PERIPHERAL NEUROPATHY N APPENDICITIS N VON WILLIBRAND'S DISEASE N SEASONAL ALLERGIES N HEARTBURN / REFLUX N PLEURISY N ADD/ADHD N AFIB N Bronchoscopy N AUTISM SPECTRUM DISORDER (ASD) N SLEEP DISORDER Y RETINOPATHY N HEADACHES/MIGRAINES N SLEEP STUDY N VASCULAR DISEASE N Blood Disorder N HEART DISEASE/HEART PROBLEMS N CLAUDICATION N DEVELOPMENTAL OR BEHAVIORAL DISORDERS N MULTIPLE SCLEROSIS N PULMONARY FUNCTION TEST [...] HAVE YOU BEEN HOSPITALIZED OR SEEN IN [facility] ER IN THE PAST YEAR ? N [...] GOUT N ALZHEIMER'S DISEASE N PAIN N FATIGUE N Brain Problems N HERPES N DEMENTIA N SEIZURES/EPILEPSY N PACEMAKER N DIZZINESS N HEAD TRAUMA OR INJURY N KIDNEY DISEASE N SCARLET FEVER N MENTAL DISORDER/ILLNESS N NEUROPSYCHOLOGICAL N CARDIAC ARRHYTHMIA N CANCER: SPECIFY N PNEUMONIA N Gynecological History Statement/Question Response Abnormal Pap N Sexually Active? Y Date of Last Pap Smear 01/20/2021 Current Control Method Hysterectom y Age at Menarche 10 Most Recent Mammogram 05/12/2021 Obstetrics History GPAL:G 0 P 0 0 0 0 Immunizations Vaccine Type Date Status Note Provider Nam e and Address Organization Details Recorded Time influenza, unspecified formulation 3 completed RIVERA Alegria null, [facility] 08/08/2023 09:19:26 COVID-19, mRNA, LNP-S, PF, 30 mcg/0.3 mL dose 3 completed Mary Taylor, RMA null, [facility] 09/18/2023 09:26:45 COVID-19, mRNA, LNP-S, PF, 30 mcg/0.3 mL dose 1 completed Not Available [facility] 07/25/2023 05:38:31 zoster, unspecified formulation 1 completed Not Available [facility] 07/25/2023 05:38:31 zoster recombinant 0 completed Not Available [facility] 07/25/2023 05:38:31 Influenza, split virus, quadrivalent, preservative 0 completed Not Available [facility] 07/25/2023 05:38:31 Influenza, split virus, quadrivalent, preservative 8 completed Not Available [facility] 07/25/2023 05:38:31 pneumococcal polysaccharide PPV23 8 completed Not Available [facility] 07/25/2023 05:38:32 Tdap 2 completed Not Available [facility] 07/25/2023 05:38:32 COVID-19, mRNA, LNP-S, PF, 30 mcg/0.3 mL dose 2 completed Not Available [facility] 07/25/2023 05:38:32 Influenza, split virus, trivalent, preservative 2 completed Not Available [facility] 07/25/2023 05:38:32 COVID-19, mRNA, LNP-S, PF, 30 mcg/0.3 mL dose 1 completed Not Available [facility] 07/25/2023 05:38:32 COVID-19, mRNA, LNP-S, PF, 30 mcg/0.3 mL dose 1 completed Not Available [facility] 07/25/2023 05:38:31 Past Encounters Encounter ID Performer Location Encounter Start Date Encounter Closed Date Diagnosis/Indication Diagnosis SNOMED-CT Code Diagnosis ICD10 Code Diagnosis IMO Codes Diagnosis Note [id number] Marilu Santillan MD [facility] [address] [address] 01/08/2021 00:00:00 01/17/2021 11:01:08 [id number] S_[facility] ic[facility] _ATHENA_M IGRATION_ DEFAULT_1 _1 , 01/19/2021 00:00:00 01/19/2021 17:53:32 [id number] Marilu Santillan MD [facility] Med [address] [address] 07/05/2021 00:00:00 08/02/2021 20:33:43 [id number] Chucho Odonnell DPM _ATHENA_M IGRATION_ DEFAULT_1 _1 , 12/06/2021 00:00:00 12/06/2021 16:35:01 [id number] Chucho Odonnell DPM _ATHENA_M IGRATION_ DEFAULT_1 _1 , 12/20/2021 00:00:00 12/29/2021 20:50:22 [id number] Marilu Santillan MD [facility] Med [address], [address] [address] 01/04/2022 00:00:00 01/16/2022 15:25:23 [id number] ALEJANDRA ReardonATHENA_M IGRATION_ DEFAULT_1 _1 , 05/09/2022 00:00:00 05/19/2022 08:58:55 [id number] Maril[address] MD [facility] Internal Med [address], [address] [address] 05/09/2022 00:00:00 05/10/2022 08:55:29 [id number] ALEJANDRA ReardonATHENA_M IGRATION_ DEFAULT_1 _1 , 05/30/2022 00:00:00 05/30/2022 16:28:18 [id number] [facility] Podiatry [address] [address] 06/07/2022 00:00:00 06/07/2022 15:54:40 [id number] ALEJANDRA Reardon IGRATION_ DEFAULT_1 _1 , 06/20/2022 00:00:00 06/20/2022 16:46:47 [id number] ALEJANDRA Reardon IGRATION_ DEFAULT_1 _1 , 06/27/2022 00:00:00 06/27/2022 16:45:18 [id number] Chucho OdonnellALEJANDRA IGRATION_ DEFAULT_1 _1 , 07/04/2022 00:00:00 07/05/2022 10:18:13 [id number] Chucho BlasALEJANDRA IGRATION_ DEFAULT_1 _1 , 08/08/2022 00:00:00 08/09/2022 10:07:49 [id number] Marilu Santillan MD [facility] Med [facility] [address] [facility] [place], [facility] [address] [place] [address] 11/08/2022 00:00:00 11/08/2022 21:20:42 [id number] Marilu Santillan MD [facility] Internal Med [facility] [address] [address] 05/02/2023 15:37:16 05/02/2023 16:47:31 Essential hypertension 11440510 I10 Type 2 arsalan betes mellitus without complication 747873330 E11.9 Pure hypercholesterolemia 355142252 E78.00 [id number] Chucho Odonnell DPM [facility] Pod[place] [address] [place] [address] 09/14/2023 17:03:46 09/20/2023 15:02:11 Metatarsalgia 00659015 M77.41 M77.42 Dispense metatarsal felt padding to offload met headDiscus sed the need for Powerstep orthotics recommend obtaining theseConti nue supportive shoe gearRice therapyRx diclofenac , educated on side effects of medication at present seek medical attention immediatel y Follow-up in 4 weeks [id number] Chucho Odonnell DPM [facility] Podiatry [place] [address] [place] [address] 10/09/2023 17:01:21 11/14/2023 13:00:27 Metatarsalgia 64675493 M77.41 M77.42 Dispense metatarsal felt padding to offload met headDiscus sed the need for Powerstep orthotics recommend obtaining theseConti nue supportive shoe gearRice therapyRx diclofenac , educated on side effects of medication at present seek medical attention immediatel y Follow-up in 4 weeks [id number] Chucho Odonnell DPM [facility] [place] [address] [facility] [address] [place] [address] 03/11/2024 15:19:17 03/28/2024 14:12:54 Pain in left foot 3865995245 07235 M79.672 obtain MRInegativ e foot x-ray Hammer toe 895944879 M20 .42 2nd toe Metatarsalgia 90621459 M 77.41 M77.42 Dispense metatarsal felt padding [...] None Recorded Advance Directives Directive N: Payers Insurance Date Sequence Insurance Name Policy Number Policy Krishna Covered Member ID Krishna Member ID Guarantor Name 03/28/2024 1 [facility] [id number] Wilman Cortes [id number] Wilman Cortes Notes Date Note Type Note Provider Name and Address Organization Details Recorded Time 05/02/2023 text/html Attention no headache or dizziness. Diabetes no polyphagia polydipsia hyperlipidemia she is not losing weight Marilu Santillan MD [address] [place] [address], [facility] [address], [place], [address], [facility] [employer] 05/02/2023 21:59:57 09/14/2023 text/html . Patient is [...] Odonnell DPM [address], [address], [place], [address], [employer] 09/20/2023 12:30:11 10/09/2023 text/html Patient returns for followup bilateral foot pain. Patient has had some relief since last visit with offloading. Denies any signs of infection. Pain is worse with standing and walking. Chucho Odonnell DPM [address], [address], [place], [address], [employer] 11/01/2023 13:49:58 03/11/2024 text/html . Patient is [...] Odonnell DPM [address], [place], [address], [employer] 03/27/2024 14:47:08 OBGyn Episode No OBEpisode recorded.
--- OUTSIDE RECORDS SUMMARY | 2025-07-03 16:00 | XMS_ITS | Clinical Summary ---
Author Organization [facility] Address [address] [place] [address] Phone Care Team Providers Care Lens Edge Grinder Machine Name Role Phone CURT Moreau MARILU Ricci Unavailable [phone] Reason for Visit and Chief Complaint The Chief Complaint is: Here for EMB secondary to mennorhagia, LMP 02/07/11. Took 800 mg Ibuprofen before visit Plan of Treatment - OTHER - Last Documented On 03/02/2011 3:43PM ; [facility] Follow-up Consult with Dr. Lobo - possible ablation - Last Documented On 03/02/2011 3:43PM ; [facility] Pending Tests Order Diagnosis Results Due Ordering P magda Lab TISSUE PATHOLOGY 04/01/11 SANAM COBB [facility]- Last Documented On 3:50PM ; [facility] Instructions to patient Instructed to call if excess alia bleeding or abdominal/pelvic pain Last Documented On 3:27PM ; [facility] Patient may take Motrin OTC PRN as directed Last Documented On 3:27PM ; [facility] Education and Decision Aids were provided during visit for: INFORMED CONSENT DISCUSSION: Endometrial biopsy was discussed in detail including discomfort, insufficient specimen with need to repeat test, and rare incidence of uterine perforation. Patient expressed understanding of the above and consented to the procedure Last Documented On 3:27PM ; [facility] Assessments Includes: Assessments from this encounter No Assessments Recorded Instructions Includes: Instructions from this encounter Instructions to patient Instructed to call if excess alia bleeding or abdominal/pelvic pain Last Documented On 3:27PM ; [facility] Patient may take Motrin OTC PRN as directed Last Documented On 3:27PM ; [facility] Education and Decision Aids were provided during visit for: INFORMED CONSENT DISCUSSION: Endometrial biopsy was discussed in detail including discomfort, insufficient specimen with need to repeat test, and rare incidence of uterine perforation. Patient expressed understanding of the above and consented to the procedure Last Documented On 1 3:27PM ; [facility] Medical Equipment - Implanted Devices Includes: Current Devices No Medical Equipment Recorded Medications Includes: Medications discussed during this encounter and other current Medications Current Medications (continue as prescribed) Singulair 10 MG OR TABS 02/17/2011 Provider: Diagnosis: Last Documented On 02/17/2011 9:51AM By EDUARDO STAFFORD ; [facility] Past Medications on file Ortho-Cyclen (28) 0.25-35 MG-MCG OR TABS 02/17/2011 - 05/18/2011 Provider: SANAM SIMPSON Diagnosis: Last Documented On 1 10:04AM By SANAM GROVE ; [facility] Ibuprofen 800 MG OR TABS 02/17/2011 - 03/19/2011 Provi shelia: SANAM GROVE Diagnosis: Last Documented On 1 10:04AM By SANAM GROVE ; [facility] Ortho-Cyclen (28) 0.25-35 MG-MCG OR TABS 02/11/2010 - 02/06/2011 Provider: SANAM SIMPSON Diagnosis: Last Documented On 0 11:04AM By SANAM GROVE ; [facility] Medications Administered Includes: Administered Medications from this encounter No Administered Medications Recorded Vital Signs Includes: Vital Signs from this encounter Vital Name 03/02/2011 03:30P Blood Pressure Sitting (mmHg) 124/72 Weight (lb) 172 Last Documented: On 03/02/2011 3:30PM ; [facility] Results Includes: Results discussed during this [...] Tissue: Adequate~Uterine Sound Measurement: Approximately 8 cm [id number] Last Documented On 1 3:27PM ; [facility] Medical History Includes: Medical History [...] Diagnosis ENDOMETRIAL BIOPSY SANAM COBB [facility] DOCK WORKER 03/02/20 11 3:16PM 3:53PM Clinical Notes Includes: Clinical Notes from this encounter No Clinical Notes Recorded
--- OUTSIDE RECORDS SUMMARY | 2025-07-03 16:00 | XMS_ITS | Clinical Summary ---
Author Organization [facility] Address [address] [place] [address] Phone Care Team Providers Care Finishing Operator Name Role Phone CURT Moreau MARILU Ricci Unavailable [phone] Reason for Visit and Chief Complaint PELVIC [...] On 02/17/2011 9:51AM By EDUARDO STAFFORD ; [facility] Medications Administered Includes: Administered Medications [...] Time Check-Out Time Diagnosis PELVIC W/TVT SANAM [facility] TRAUMA NURSE 1 9:11AM 9:53AM Clinical Notes Includes: Clinical Notes from this encounter No Clinical Notes Recorded
--- OUTSIDE RECORDS SUMMARY | 2025-07-03 16:00 | XMS_ITS | Encounter Summary ---
Author Organization [facility] Address [facility] [place] [address] Care Team Providers Care Stamp Classifier Name Role Phone Lewis Santillan DO Primary Care Provider [phone] Encounter Details Date Type Department Care Team (Late st Contact Info) Description 04/01/2019 Prep for Procedure [facility] [id number] [place] [address] [phone] Linda Mcnamara MD [facility] [address] [address] Social History Tobacco Use Types Packs/Day Years [...] Information Value Date Recorded Sex Assigned at Female 06/10/2025 4:13 PM CDT Legal Sex Female 7:17 PM CDT Gender Identity Not on file Sexual Orientation Not on file documented as of this encounter Functional Status documented as of this encounter Plan of Treatment Not on file documented as of this encounter Results * TYPE & SCREEN (04/01/2019 3:51 PM CDT) ABO/RH O POSITIVE 04/01/2019 6:21 PM CDT [facility] () [facility] ANTIBODY SCREEN NEGATIVE 9 6:21 PM CDT [facility] SAMPLE EXPIRATION 04/08/2019 04/01/2019 6:21 PM CDT [facility] 04/01/2019 3:51 PM CDT Linda Mcnamara MD BLOOD BANK TEST ORDERABLES F inal Result Performing Organization Address [facility] Co de Phone Number [facility] [address] [place] [address], [place] [phone] * MRSA SCREENING (04/01/2019 3:51 PM CDT) SPEC DESCRIPTION NASAL 04/01/2019 3:50 PM CDT [facility] SPECIAL REQUESTS NO SPECIAL REQUEST 04/01/2019 3:50 PM CDT [facility] CULTURE RESULT NO MRSA ISOLATED 04/02/2019 9:39 PM CDT [facility] SPECIMEN FROM INTERNAL NOSE / Unknown 04/01/2019 3:51 PM CDT 04/01/2019 4:09 PM CDT Linda Mcnamara MD MICROBIOLOGY - GENERAL ORDER ETHAN Final Result Performing Organization Address [facility] Co de Phone Number [facility] [address] [place] [address], [place] [phone] * (ABNORMAL) HEPATIC FUNCTION PANEL (04/01/2019 3:51 PM CDT) TOTAL PROTEIN S/P/B 6.8 6.4 - 8.2 G/DL 04/01/2019 4:27 PM CDT [facility] ALBUMIN S/P/B 3.6 3.4 - 5.0 G/DL 04/01/2019 4:27 PM CDT [facility] BILIRUBIN TOTAL S/P/B 1.6(H) 0.2 - 1.2 MG/DL 04/01/2019 4:27 PM CDT [facility] BILIRUBIN DIRECT S/P/B 0.3(H) 0.0 - 0.20 MG/DL 04/01/2019 4:27 PM T [facility] BILIRUBIN INDIRECT S/P/B 1.3(H) 0.0 - 0.9 MG/DL 04/01/2019 4:27 PM CDT [facility] ALKALINE PHOSPHATASE S/P/B 90 50 - 136 U/L 04/01/2019 4:27 PM T [facility] AST 13(L) 15 - 37 U/L 04/01/2019 4:27 PM CDT [facility] ALT 22 14 - 55 U/L 04/01/2019 4:27 PM CDT [facility] A/G RATIO 1.1 1.0 - 2.0 RATIO 04/01/2019 4:27 PM T [facility] 04/01/2019 3:51 PM CDT us Linda Mcnamara MD LABORATORY Final Result [facility] [address] [place] [address], [place] [phone] * PLATELET FUNCTION ASSAY (04/01/2019 3:51 PM CDT) EPINEPHRINE (PLT FUNCT) 152 80 - 184 SEC 04/01/2019 4:26 PM CDT [facility] COLLAGEN / ADP COL/ADP NOT NEEDED. 56 - 102 SEC 04/01/2019 4:26 PM T [facility] Comment: NORMAL COLLAGEN/EPI INDICATES NORMAL PLATELET FUNCTION. 04/01/2019 3:51 PM CDT us Linda Mcnamara MD LABORATORY Final Result [facility] [address] [place] [address], [place] [phone] * (ABNORMAL) BASIC METABOLIC PANEL (04/01/2019 3:51 PM CDT) [facility] GLUCOSE 101(H) 70 - 99 MG/DL 04/01/2019 4:27 PM CDT [facility] BUN 11 7 - 18 MG/DL 04/01/2019 4:27 PM CDT [facility] CREATININE S/P/B 0.75 0.55 - 1.02 MG/DL 04/01/2019 4:27 PM T [facility] SODIUM S/P/B 137 136 - 145 MMOL/L 04/01/2019 4:27 PM CDT [facility] POTASSIUM S/P/B 3.6 3.5 - 5.1 MMOL/L 04/01/2019 4:27 PM CDT [facility] CHLORIDE S/P/B 102 100 - 108 MMOL/L 04/01/2019 4:27 PM T [facility] CO2 27.6 21 - 32 MMOL/L 04/01/2019 4:27 PM T [facility] CALCIUM S/P/B 9.1 8.5 - 10.1 MG/DL 04/01/2019 4:27 PM T [facility] ANION GAP 7.4 5 - 15 MMOL/L 04/01/2019 4:27 PM T [facility] BUN CREATININE RATIO 14.7 6 - 26 04/01/2019 4:27 PM T [facility] EGFR NON-AFR. AMER. >90 >90 ML/MIN/1.7 3 M2 04/01/2019 4:27 PM CDT [facility] EGFR AFR. AMER. >90 >90 ML/MIN/1.7 3 M2 04/01/2019 4:27 PM CDT [facility] Comment: NOTE: eGFR is not calculated for patients <18 years of age. This is an estimated GFR (CKD EPI) and should not be used for calculating drug doses. 04/01/2019 3:51 PM CDT us Linda Mcnamara MD LABORATORY Final Result [facility] [address] [place] [address], [place] [phone] * (ABNORMAL) CBC W/DIFF AUTOMATED (04/01/2019 3:51 PM CDT) WBC 7.2 4.4 - 11.0 x10'3/uL 04/01/2019 4:41 PM CDT [facility] RBC 4.10(L) 4.50 - 5.10 x10'6/uL 04/01/2019 4:41 PM CDT [facility] HGB 11.8(L) 12.3 - 15.3 G/DL 04/01/2019 4:41 PM CDT [facility] HCT 35.8(L) 35.9 - 44.6 % 04/01/2019 4:41 PM CDT [facility] MCV 87.3 80.0 - 96.0 FL 04/01/2019 4:41 PM CDT [facility] MCH 28.8 25.3 - 30.9 PG 04/01/2019 4:41 PM CDT [facility] MCHC 33.0 31.0 - 34.1 G/DL 04/01/2019 4:41 PM CDT [facility] RDW 12.3(L) 12.4 - 15.1 % 04/01/2019 4:41 PM [facility] PLT 201 151 - 353 x10'3/uL 04/01/2019 4:41 PM T [facility] MPV 11.0 9.6 - 12.0 FL 04/01/2019 4:41 PM T [facility] RBC MORPHOLOGY NORMAL 04/01/2019 4:41 PM [facility] PLT MORPH. NORMAL 04/01/2019 4:41 PM T [facility] WBC MORPHOLOGY NORMAL 04/01/2019 4:41 PM T [facility] LYMPHOCYTES % 35.3 15.8 - 45.0 % 04/01/2019 4:41 PM [facility] NEUTROPHILS % 56.5 42.1 - 71.9 % 04/01/2019 4:41 PM T [facility] MONOCYTES % 7.2 5.7 - 12.5 % 04/01/2019 4:41 PM [facility] EOSINOPHILS 0.4 0.0 - 5.6 % 04/01/2019 4:41 PM T [facility] BASOPHILS 0.3 0.0 - 1.3 % 04/01/2019 4:41 PM [facility] ABS. NEUTROPHILS TOTAL 4.06 1.40 - 6.00 x10'3/uL 04/01/2019 4:41 PM T [facility] IMMATURE GRANS % 0.3 0.0 - 0.5 % 04/01/2019 4:41 PM [facility] ABS. LYMPHOCYTES 2.54 0.80 - 4.70 x10'3/uL 04/01/2019 4:41 PM [facility] 04/01/2019 3:51 PM CDT us Linda Mcnamara MD LABORATORY Final Result [facility] [address] [place] [address], documented in this encounter Visit Diagnoses Diagnosis Pre-op exam- Primary Preoperative examination, unspecified documented in this encounter Care Teams Stamp Classifier Relationship Specialty Start Date End Date Lewis Santillan DO [address] [place] [address] PCP - General FAMILY PRACTICE 02/07/19 documented as of this encounter
--- OUTSIDE RECORDS SUMMARY | 2025-07-03 16:00 | XMS_ITS ---
Author Organization [facility] Address [address] [place] [address] Phone Care Team Providers Care Lawn And Garden Technician Name Role Phone MARILU ELIAS D.O Unavailable [phone] Plan of Treatment Findings Encounter Date Ordered follow-up visit 1 ye ar or as needed PRODUCE BUYER EXAM with SANAM COBB [facility] 02/17/2011 Last Documented On 1 10:05AM ; [facility] Pt to get fasting lipid prof ile at lab in [place] - rx given PRODUCE BUYER EXAM with SANAMAMBROSIO COBB [facility] 02/11/2010 Last Documented On 0 11:05AM ; [facility] Ordered follow-up visit 1 y ear or as needed PRODUCE BUYER EXAM with SANAMAMBROSIO COBB [facility] 02/11/2010 Last Documented On 0 11:05AM ; [facility] Instructions to patient Instructed to call if excess alia bleeding or abdominal/pelvic pain Last Documented On 1 3:27PM ; [facility] Patient may take Motrin OTC PRN as directed Last Documented On 1 3:27PM ; [facility] Instructions for patient : B reast Self Exam discussed Last Documented On 1 9:50AM ; [facility] Lose weight Last Documented On 1 9:53AM ; [facility] Instructions for patient : B reast Self Exam discussed Last Documented On 0 10:42AM ; [facility] Lose weight Last Documented On 0 10:53AM ; [facility] Education and Decision Aids were provided during visit for: INFORMED CONSENT DISCUSSION: Endometrial biopsy was discussed in detail including discomfort, insufficient specimen with need to repeat test, and rare incidence of uterine perforation. Patient expressed understanding of the above and consented to the procedure Last Documented On 1 3:27PM ; [facility] Patient Education: Daily jose cium and vitamin D Last Documented On 1 9:52AM ; [facility] Patient Education: weight be aring exercise Last Documented On 1 9:52AM ; [facility] Patient Education: Daily jose cium and vitamin D Last Documented On 0 10:42AM ; [facility] Patient Education: weight be aring exercise Last Documented On 0 10:53AM ; [facility] Assessments Includes: Assessments for all patient encounters Findings Encounter Date NORMAL FEMALE EXAM PRODUCE BUYER EXAM with SANAM COBB Marcus [facility] 02/17/2011 Last Documented On 1 10:05AM ; [facility] Normal routine history and physical PRODUCE BUYER EXAM joel Garcia REZA [facility] 02/17/2011 Last Documented On 1 10:05AM ; [facility] Routine pelvic exam PRODUCE BUYER EXAM with SANAM Garcia COBB [facility] 02/17/2011 Last Documented On 1 10:05AM ; [facility] Screening Malig. Neoplasm Rectum PRODUCE BUYER EXAM with Oly COBB [facility] 02/17/2011 Last Documented On 1 10:05AM ; [facility] Normal routine history and physical PRODUCE BUYER EXAM wit og Garcia COBB [facility] 02/11/2010 Last Documented On 0 11:05AM ; [facility] Routine pelvic exam PRODUCE BUYER EXAM with SANAM aGrcia REZA [facility] 02/11/2010 Last Documented On 0 11:05AM ; [facility] Screening Malig. Neoplasm Rectum PRODUCE BUYER EXAM with Oly Garcia REZA [facility] 02/11/2010 Last Documented On 0 11:05AM ; [facility] Instructions Includes: Instructions for all patient encounters Instructions to patient Instructed to call if excess alia bleeding or abdominal/pelvic pain Last Documented On 1 3:27PM ; [facility] Patient may take Motrin OTC PRN as directed Last Documented On 1 3:27PM ; [facility] Instructions for patient : B reast Self Exam discussed Last Documented On 1 9:50AM ; [facility] Lose weight Last Documented On 1 9:53AM ; [facility] Instructions for patient : B reast Self Exam discussed Last Documented On 0 10:42AM ; [facility] Lose weight Last Documented On 0 10:53AM ; [facility] Education and Decision Aids were provided during visit for: INFORMED CONSENT DISCUSSION: Endometrial biopsy was discussed in detail including discomfort, insufficient specimen with need to repeat test, and rare incidence of uterine perforation. Patient expressed understanding of the above and consented to the procedure Last Documented On 1 3:27PM ; [facility] Patient Education: Daily jose cium and vitamin D Last Documented On 1 9:52AM ; [facility] Patient Education: weight be aring exercise Last Documented On 1 9:52AM ; [facility] Patient Education: Daily jose cium and vitamin D Last Documented On 0 10:42AM ; [facility] Patient Education: weight be aring exercise Last Documented On 0 10:53AM ; [facility] Medical Equipment - Implanted Devices Includes: Current and historical Devices No Medical Equipment Recorded Medications Includes: Current and historical Medications Current Medications (continue as prescribed) Singulair 10 MG OR TABS 02/17/2011 Provider: Diagnosis: Last Documented On 02/17/2011 9:51AM By EDUARDO STAFFORD ; [facility] Past Medications on file Ortho-Cyclen (28) 0.25-35 MG-MCG OR TABS 02/17/2011 - 05/18/2011 Provider: SANAM NEVAREZ TAX EVALUATOR-BC Diagnosis: Last Documented On 1 10:04AM By SANAM GROVE ; [facility] Ibuprofen 800 MG OR TABS 02/17/2011 - 03/19/2011 Provi shelia: SANAM BLOCK-BC Diagnosis: Last Documented On 1 10:04AM By SANAM GROVE ; [facility] Ortho-Cyclen (28) 0.25-35 MG-MCG OR TABS 02/11/2010 - 02/06/2011 Provider: SANAM NEVAREZ NP-BC Diagnosis: Last Documented On 0 11:04AM By SANAM GROVE ; [facility] Ortho-Cyclen (28) 0.25-35 MG-MCG OR TABS 02/10/2010 - 02/11/2010 Provider: SANAM NEVAREZ NP-BC Diagnosis: Appt. is due this month!! Last Documented On 0 11:04AM By SANAM GROVE ; [facility] Ortho-Cyclen (28) 0.25-35 MG-MCG OR TABS 01/29/2010 - 02/10/2010 Provider: SANAM NEVAREZ NP-BC Diagnosis: appointment due . Last Documented On 0 7:33AM By SANAM GROVE ; [facility] Ortho-Cyclen (28) 0.25-35 MG-MCG OR TABS 10/22/2009 - 02/17/2011 Provider: Diagnosis: Last Documented On 1 10:04AM By SANAM GROVE ; [facility] Medications Administered Includes: Administered Medications in patient's chart No Administered Medications Recorded Results Includes: Results from 07/03/2024 through 07/03/2025 No Results Recorded For Specified Dates History of Present Illness History of Present Illness not supported for this document type No History of Present Illness Recorded Social History Description Last Updated Alcohol use Occ 02/17/2011 Last Documented On 1 10:05AM ; [facility] Not using drugs 02/17/2011 Last Documented On 1 10:05AM ; [facility] Sexually active 02/17/2011 Last Documented On 1 10:05AM ; [facility] Non-smoker 02/11/2010 Last Documented On 0 11:05AM ; [facility] Social history unchanged got Last Documented On 0 11:05AM ; [facility] 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 [employer] 10/22/2009 Last Documented On 0 10:18AM ; [facility] Sexually active with 1 partners in the l ast year 10/22/2009 Last Documented On 0 10:18AM ; [facility] Alcohol 10/22/2009 Last Documented On 0 10:18AM ; [facility] Caffeine use 10/22/2009 Last Documented On 0 10:18AM ; [facility] Daily tea consumption was four cups per day 10/22/2009 Last Documented On 0 10:18AM ; [facility] Drug use by a sexual partner does not in clude intravenous drug use 10/22/2009 Last Documented On 0 10:18AM ; [facility] Educational level: grade 10/22/2009 Last Documented On 0 10:18AM ; [facility] In grade 13-16 (college) 10/22/2009 Last Documented On 0 10:18AM ; [facility] Marital history 10/22/2009 Last Documented On 0 10:18AM ; [facility] Partner has not had a STD in the past ye ar 10/22/2009 Last Documented On 0 10:18AM ; [facility] Patient does not report having sex when she didn't want to 10/22/2009 Last Documented On 0 10:18AM ; [facility] Patient has not had sex unde r the influence of alcohol or drugs in the last year 10/22/2009 Last Documented On 0 10:18AM ; [facility] Sexual history : painful intercourse Last Documented On 0 10:18AM ; [facility] Sexual partner has not had o ther partners while in relationship with patient 10/22/2009 Last Documented On 0 10:18AM ; [facility] Sexual partner has not had sex with pros titutes 10/22/2009 Last Documented On 0 10:18AM ; [facility] The racial background 10/22/2009 Last Documented On 0 10:18AM ; [facility] The racial background is 10/22 Last Documented On 0 10:18AM ; [facility] Using condoms 10/22/2009 Last Documented On 0 10:18AM ; [facility] Smoking Status Unknown Procedures and Surgical History Surgical History Last Updated No history of appendectomy 02/11/2010 Last Documented On 0 11:05AM ; [facility] No history of cholecystectomy 02/11/2010 Last Documented On 0 11:05AM ; [facility] No history of Loop electrode excision of cervix (LEEP) 02/11/2010 Last Documented On 0 11:05AM ; [facility] No history of total abdominal hysterecto my 02/11/2010 Last Documented On 0 11:05AM ; [facility] No history of tubal ligation 02/11/2010 Last Documented On 0 11:05AM ; [facility] No history of vaginal hysterectomy 02/11 Last Documented On 0 11:05AM ; [facility] Medical History Includes: Medical History in patient's chart Description Last Updated History of human papilloma virus infecti on 02/17/2011 Last Documented On 1 10:05AM ; [facility] History of hyperlipidemia 02/17/2011 Last Documented On 1 10:05AM ; [facility] History of cervical dysplasia Ho cryo Last Documented On 1 10:05AM ; [facility] No recent change in medical history 01/30 Last Documented On 1 10:05AM ; [facility] LMP: 02/07/2011 02/17/2011 Last Documented On 1 10:05AM ; [facility] Last mammogram date: 02/09/2011 1 Last Documented On 1 10:05AM ; [facility] Last pap smear date 02/11/2010 02/17/2011 Last Documented On 1 10:05AM ; [facility] Contraception: mononessa 02/11/2010 Last Documented On 0 11:05AM ; [facility] History of allergic rhinitis 02/11/2010 Last Documented On 0 11:05AM ; [facility] No history of dysfunctional uterine blee ding 02/11/2010 Last Documented On 0 11:05AM ; [facility] No history of urinary tract infection Last Documented On 0 11:05AM ; [facility] No history of vaginitis 02/11/2010 Last Documented On 0 11:05AM ; [facility] Result: normal 02/11/2010 Last Documented On 0 11:05AM ; [facility] Result: normal 02/11/2010 Last Documented On 0 11:05AM ; [facility] A breast self-exam was performed 010 Last Documented On 0 10:18AM ; [facility] A Pap smear was performed 10/22/2009 Last Documented On 0 10:18AM ; [facility] An HIV test was not performed 10/22/2009 Last Documented On 0 10:18AM ; [facility] Chlamydia 10/22/2009 Last Documented On 0 10:18AM ; [facility] Oral contraceptives 10/22/2009 Last Documented On 0 10:18AM ; [facility] Previous hospitalizations [facility]ERY IN 1998,POLYPECTOMY FROM UTERUS IN 200310/22/2009 Last Documented On 0 10:18AM ; [facility] Previously diagnosed with a STD 10/22/19 10 Last Documented On 0 10:18AM ; [facility] Taking OTC medications ASPIRIN 0 Last Documented On 0 10:18AM ; [facility] Family History Includes: Family History in patient's chart Description Last Updated Family history of hypercholesterolemia m other, brother et self 02/17/2011 Last Documented On 1 10:05AM ; [facility] Family history unchanged 02/17/2011 Last Documented On 1 10:05AM ; [facility] No family history of hypertension 2010 Last Documented On 1 10:05AM ; [facility] No family history of uterine cancer 01/30 Last Documented On 1 10:05AM ; [facility] No heart disease 02/17/2011 Last Documented On 1 10:05AM ; [facility] Family history of diabetes mellitus moth er 02/11/2010 Last Documented On 0 11:05AM ; [facility] Family history of malignant neoplasm of the large intestine father 02/11/2010 Last Documented On 0 11:05AM ; [facility] No family history of malignant female br east neoplasm 02/11/2010 Last Documented On 0 11:05AM ; [facility] No family history of malignant neoplasm of the ovary 02/11/2010 Last Documented On 0 11:05AM ; [facility] Family history of Diabetes 10/22/2009 Last Documented On 0 10:18AM ; [facility] Review of Systems Review of Systems not [...]
--- OUTSIDE RECORDS SUMMARY | 2025-07-03 16:00 | XMS_ITS | Clinical Summary ---
Author Organization [facility] Address [facility] [place] [address] Care Team Providers Care Golf Ball Marker Name Role Phone Lewis Santillan DO Primary Care Provider [phone] Allergies No known active allergies Medications atorvastatin 20 MG tablet Take 1 tablet by mouth daily. 3 02/03/2019 Active metFORMIN 500 MG tablet Take 500 mg by mouth 2 (two) times daily with meals. Active omega-3 fatty acid 500 MG capsule Take 500 mg by mouth 2 (two) times a day. Active FLUoxetine (PROZAC) 20 MG capsule Take 1 capsule (20 mg total) by mouth daily. Active diazePAM (VALIUM) 2 MG tabletIndicatio ns:Vertigo Take 1 tablet (2 mg total) by mouth every 12 (twelve) hours as needed (dizziness). 20 tablet 06/10/2025 Active meclizine (ANTIVERT) 25 MG tablet Take 1 tablet (25 mg total) by mouth 3 (three) times daily as needed. 21 tablet 06/10/2025 06/17/20 25 sulfamethoxazol e-trimethoprim (BACTRIM DS) 800-160 MG tablet Take 1 tablet by mouth 2 (two) times daily for 7 days. 14 tablet 06/10/2025 06/17/20 25 Active Problems Problem Noted Date Diagnosed Date Calculus of gallbladder with chronic cholecystitis without obstruction 02/15/2019 Encounters Date Type Department Care Team Description 06/10/2025 3:20 PM CDT - 06/10/2025 8:32 PM CDT Emergency [facility] Emergency Room [address] [place] [id number] Anderson Arroyo DO [place]rough, Maria Louisa, MD Dizziness; Nausea Discharge Disposition: Home or Self Care (Routine Discharge) 06/10/2025 Travel from Last 3 Months Family History Medical History Relation Comments Cancer Father prostate Cancer Maternal Aunt breast Diabetes Maternal Aunt Cancer Maternal Grandmother lung Diabetes Mother Relation Status Comments Father Maternal Aunt Maternal Grandmother Mother Social History Tobacco Use Types Packs/Day Years Used Date Smoking Tobacco: Never Passive Smoke Exposure: Current Smokeless Tobacco: Never Tobacco Cessation:Counseling Given: Not Answered Alcohol Use Standard Drinks/Week Comments No 0 (1 standard drink = 0.6 oz pur e alcohol) AUDIT-C Answer Date Recorded Frequency of Alcohol Consumption Never 04/01/2019 Average Number of Drinks Not on file 019 Frequency of Binge Drinking Not on file 10/2018 Comments No Sex and Gender Information Value Date Recorded Sex Assigned at Female 06/10/2025 4:13 PM CDT Legal Sex Female 7:17 PM CDT Gender Identity Not on file Sexual Orientation Not on file Last Filed Vital Signs Vital Sign Reading Time Taken Comments Blood Pressure 118/76 06/10/2025 8:06 PM CDT Pulse 76 06/10/2025 8:06 PM CDT Temperature 36.7 C (98 F) 06/10/2025 8:06 PM CDT Respiratory Rate 19 06/10/2025 8:06 PM CDT Oxygen Saturation 99% 06/10/2025 8:06 PM CDT Inhaled Oxygen Concentration - - Weight 76.2 kg (168 lb) 06/10/2025 3:28 PM CDT Height 152.4 cm (5') 06/10/2025 3:28 PM CDT Body Mass Index 32.81 06/10/2025 3:28 PM CDT Plan of Treatment Health Maintenance Due Date Last Done Comments Colorectal Cancer Screening Colonoscopy (10 Years) 1968 Annual Physical 1971 Hepatitis C 1986 Hepatitis B Vaccines (1 of 3 - 19+ 3-dose series) 1987 Mammogram Screening 2008 Pneumococcal Vaccine: 50+ Years (2 of 2 - PCV) 06/09/2019 06/09/2018 COVID-19 Vaccine ( season) 2025 09/16/2023, 08/13/2022, 08/17/2021, Additional history exists DTaP, Tdap and Td Vaccines (2 - Td or Tdap) 08/13/2032 08/13/2022 Zoster Vaccines Completed 11/28/2020, 06/30/2020 Meningococcal B [...] Procedure Name Priority Date/Time Associated Diagnosis Comments URINALYSIS, AUTO, COMPLETE STAT 06/10/2025 4:46 PM CDT MAGNESIUM STAT 06/10/2025 4:46 PM CDT COMPREHENSIVE METABOLIC PANEL STAT 06/10/2025 4:46 PM CDT CBC W/DIFF AUTOMATED STAT 06/10/2025 4:46 PM CDT POCT GLUCOSE - DOCKED DEVICE Routine 06/10/2025 3:27 PM CDT from Last 3 Months Results * (ABNORMAL) URINALYSIS, AUTO, COMPLETE (06/10/2025 4:46 PM CDT) COLOR (U) YELLOW 06/10/2025 5:06 PM CDT [facility] TRANSPARENCY HAZY 06/10/2025 5:06 PM CDT [facility] SPECIFIC GRAVITY (U) >1.030(H) 1.000 - 1.030 06/10/2025 5:06 PM CDT [facility] U PH 6.0 5.0 - 9.0 06/10/2025 5:06 PM CDT [facility] LEUKOCYTES (U) 1+(A) NEGATIVE 06/10/2025 5:06 PM CDT [facility] NITRITES POSITIVE(A) NEGATIVE 06/10/2025 5:06 PM CDT [facility] PROTEIN RANDOM (U) TRACE(A) NEGATIVE 06/10/2025 5:06 PM CDT [facility] GLUCOSE (U) TRACE(A) NEGATIVE 06/10/2025 5:06 PM CDT [facility] KETONES MG/DL (U) TRACE(A) NEGATIVE 06/10/2025 5:06 PM CDT [facility] BILIRUBIN (U) NEGATIVE NEGATIVE 06/10/2025 5:06 PM CDT [facility] BLOOD (U) TRACE(A) NEGATIVE 06/10/2025 5:06 PM CDT [facility] WBC/HPF 10-25 0 - 5 /HPF 06/10/2025 5:06 PM CDT [facility] RBC/HPF 0-5 0 - 5 /HPF 06/10/2025 5:06 PM CDT [facility] EPI/HPF FEW /HPF 06/10/2025 5:06 PM CDT [facility] BACTERIA (U) MODERATE /HPF 06/10/2025 5:06 PM CDT [facility] URINE SPECIMEN OBTAINED BY CLEAN CATCH PROCEDURE / Unknown 06/10/2025 4:46 PM CDT us Anderson Arroyo DO URINE ORDERABLES Final Result [facility] [address] [place] [address], [place] [phone] * (ABNORMAL) COMPREHENSIVE METABOLIC PANEL (06/10/2025 4:46 PM CDT) GLUCOSE 232(H) 70 - 99 MG/DL 06/10/2025 5:11 PM CDT [facility] BUN 9 7 - 18 MG/DL 06/10/2025 5:11 PM [facility] CREATININE S/P/B 0.74 0.55 - 1.02 MG/DL 06/10/2025 5:11 PM [facility] SODIUM S/P/B 138 136 - 145 MMOL/L 06/10/2025 5:11 PM [facility] POTASSIUM S/P/B 3.7 3.5 - 5.1 MMOL/L 06/10/2025 5:11 PM [facility] CHLORIDE S/P/B 100 100 - 108 MMOL/L 06/10/2025 5:11 PM [facility] CO2 25.5 21 - 32 MMOL/L 06/10/2025 5:11 PM [facility] CALCIUM S/P/B 9.5 8.5 - 10.1 MG/DL 06/10/2025 5:11 PM [facility] BILIRUBIN TOTAL S/P/B 2.2(H) 0.2 - 1.2 MG/DL 06/10/2025 5:11 PM [facility] TOTAL PROTEIN S/P/B 7.6 6.4 - 8.2 G/DL 06/10/2025 5:11 PM [facility] ALBUMIN S/P/B 4.1 3.4 - 5.0 G/DL 06/10/2025 5:11 PM [facility] AST 38(H) 15 - 37 U/L 06/10/2025 5:11 PM [facility] ALT 43 14 - 55 U/L 06/10/2025 5:11 PM [facility] ALKALINE PHOSPHATASE S/P/B 118 50 - 136 U/L 06/10/2025 5:11 PM CDT [facility] ANION GAP 12.5 5 - 15 MMOL/L 06/10/2025 5:11 PM CDT [facility] BUN CREATININE RATIO 12.2 6 - 26 06/10/2025 5:11 PM CDT [facility] A/G RATIO 1.2 1.0 - 2.0 RATIO 06/10/2025 5:11 PM CDT [facility] GFR ESTIMATE >90 >90 ML/MIN/1.7 3 M2 06/10/2025 5:11 PM CDT [facility] Comment: NOTE: eGFR is not calculated for patients <18 years of age. This is an estimated GFR calculation using the new CKD EPI creatinine equation without race and so does not require a correction factor for race. This estimated GFR should not be used for calculating drug doses. 06/10/2025 4:46 PM CDT Anderson Arroyo DO LABORATORY Final Result [facility] [address] [place] [address], * (ABNORMAL) CBC W/DIFF AUTOMATED (06/10/2025 4:46 PM CDT) WBC 6.92 4.4 - 11.0 x10'3/uL 06/10/2025 4:55 PM CDT [facility] RBC 4.56 4.50 - 5.10 x10'6/uL 06/10/2025 4:55 PM CDT [facility] HGB 12.6 12.3 - 15.3 G/DL 06/10/2025 4:55 PM CDT [facility] HCT 38.0 35.9 - 44.6 % 06/10/2025 4:55 PM CDT [facility] MCV 83.3 80.0 - 96.0 FL 06/10/2025 4:55 PM CDT [facility] MCH 27.6 25.3 - 30.9 PG 06/10/2025 4:55 PM CDT [facility] MCHC 33.2 31.0 - 34.1 G/DL 06/10/2025 4:55 PM CDT [facility] RDW 13.0 12.4 - 15.1 % 06/10/2025 4:55 PM CDT [facility] PLT 182 151 - 353 x10'3/uL 06/10/2025 4:55 PM CDT [facility] MPV 10.8 9.6 - 12.0 FL 06/10/2025 4:55 PM T [facility] RBC MORPHOLOGY NORMAL 06/10/2025 4:55 PM T [facility] PLT MORPH. NORMAL 06/10/2025 4:55 PM T [facility] WBC MORPHOLOGY NORMAL 06/10/2025 4:55 PM CDT [facility] LYMPHOCYTES % 20.2 15.8 - 45.0 % 06/10/2025 4:55 PM T [facility] NEUTROPHILS % 74.3(H) 42.1 - 71.9 % 06/10/2025 4:55 PM CDT [facility] MONOCYTES % 4.5(L) 5.7 - 12.5 % 06/10/2025 4:55 PM T [facility] EOSINOPHILS 0.3 0.0 - 5.6 % 06/10/2025 4:55 PM CDT [facility] BASOPHILS 0.3 0.0 - 1.3 % 06/10/2025 4:55 PM CDT [facility] ABS. NEUTROPHILS 5.14 1.40 - 6.00 x10'3/uL 06/10/2025 4:55 PM CDT [facility] IMMATURE GRANS % 0.4 0.0 - 0.5 % 06/10/2025 4:55 PM CDT [facility] ABS. LYMPHOCYTES 1.40 0.80 - 4.70 x10'3/uL 06/10/2025 4:55 PM CDT [facility] 06/10/2025 4:46 PM CDT [facility] Final Result Performing Organization Address [facility]/ZIP Co de Phone Number [facility] [address] [place] [address], [place] [phone] * (ABNORMAL) MAGNESIUM (06/10/2025 4:46 PM CDT) MAGNESIUM 1.5(L) 1.8 - 2.4 MG/DL 06/10/2025 5:11 PM CDT [facility] 06/10/2025 4:46 PM CDT Anderson Arroyo DO LABORATORY Final Result Performing Organization Address [facility] Co de Phone Number [facility] [address] [place] [address], [place] [phone] * (ABNORMAL) POCT glucose (06/10/2025 3:27 PM CDT) GLUCOSE POC 194(H) 70 - 110 mg/dL 06/10/2025 3:39 PM CDT [facility] 06/10/2025 3:27 PM CDT Attending Physician Emergency MD POCT ORDERABLES - DEVICE Final Result Performing Organization Address City/[facility]/ZIP Co de Phone Number [facility] [address] [facility] [address], [place] [phone] from Last 3 Months Insurance [facility] Care Teams Golf Ball Marker Relationship Specialty Start Date End Date Lewis Santillan DO [address] [place] [address] PCP - General FAMILY PRACTICE 02/07/19
--- OUTSIDE RECORDS SUMMARY | 2025-07-03 16:00 | XMS_ITS | Clinical Summary ---
Author Organization [facility] Address [address] [place] [address] Phone Care Team Providers Care Refined Syrup Operator Name Role Phone LEWIS SANTILLAN D.O Unavailable [phone] Reason for Visit and Chief Complaint gynecologic annual exam - The Chief Complaint is: Annual ~pt bleeds even after menses. Menses are now heavier than ever been. Cramps are becoming worse Plan of Treatment - DYSMENORRHEA - Last Documented On 02/17/2011 10:05AM ; [facility] U/S /VETERINARY NURSE ULTRASOUND: PTVT US - Last Documented On 02/17/2011 10:05AM ; [facility] ? OTHERPHY ORDER/COMMENT Please get most recent lipid panel from Dr. Lewis Santillan. Thanks!Ortho-Cyclen (28) 0.25-35 MG-MCG TABS, 1 daily, 90 days, 0 refillsIbuprofen 800 MG TABS, 1 every 6 hours as needed, 30 days, 0 refills - Last Documented On 02/17/2011 10:05AM ; [facility] ? Cervical Pap SmearIn office procedures/*Clia Waived Labs: Pap Smear Taken - Last Documented On 02/17/2011 10:05AM ; [facility] ? SCREEN MAL NEOP-RECTUMIn office procedures/*Clia Waived Labs: *FIT Test (Fecal Occult Test) - Last Documented On 02/17/2011 10:05AM ; [facility] - Follow-up visit 1 year or as needed - Last Documented On 02/17/2011 10:05AM ; [facility] Pending Tests Order Diagnosis Results Due Ordering Larry man U/S @ MICHEL - OB or JV U/S PTVT US DYSMENORRHEA 1 SANAM BLOCK- Last Documented On 1 10:07AM ; [facility] In office procedures - *Clia Waived Labs Pap Smear Taken SCREEN MAL NEOP-CERVIX 03/03/11 SANAM COBB NP- Last Documented On 1 9:55AM ; [facility] In office procedures - *Clia Waived Labs *FIT Test (Fecal Occult Test) SCREEN MAL NEOP-RECTUM 03/03/11 SANAM COBB [facility]- Last Documented On 1 9:55AM ; [facility] Lab SUREPATH PAP AND HR HPV DNA 03/19/11 SANAM COBB [facility]- Last Documented On 1 10:06AM ; [facility] Lab CHLAMYDIA/N. GONORRHOEAE DNA, SDA, PAP VIAL 03/19/11 SANAM COBB [facility]- Last Documented On 1 10:06AM ; [facility] Instructions to patient Instructions for patient : B reast Self Exam discussed Last Documented On 1 9:50AM ; [facility] Lose weight Last Documented On 1 9:53AM ; [facility] Education and Decision Aids were provided during visit for: Patient Education: Daily jose cium and vitamin D Last Documented On 1 9:52AM ; [facility] Patient Education: weight be aring exercise Last Documented On 1 9:52AM ; [facility] Assessments Includes: Assessments from this encounter Findings - Normal routine history and physical - Last Documented On 02/17/2011 10:05AM ; [facility] - Routine pelvic exam - Last Documented On 02/17/2011 10:05AM ; [facility] - NORMAL FEMALE EXAM - Last Documented On 02/17/2011 10:05AM ; [facility] - Screening Malig. Neoplasm Rectum - Last Documented On 02/17/2011 10:05AM ; [facility] Instructions Includes: Instructions from this encounter Instructions to patient Instructions for patient : B reast Self Exam discussed Last Documented On 1 9:50AM ; [facility] Lose weight Last Documented On 1 9:53AM ; [facility] Education and Decision Aids were provided during visit for: Patient Education: Daily jose cium and vitamin D Last Documented On 1 9:52AM ; [facility] Patient Education: weight be aring exercise Last Documented On 1 9:52AM ; [facility] Medical Equipment - Implanted Devices Includes: Current Devices No Medical Equipment Recorded Medications Includes: Medications discussed during this encounter and other current Medications New / Renewed during this visit SANAM GROVE on 02/17/2011 Ortho-Cyclen (28) 0.25-35 MG-MCG OR TABS Provider: SANAM Aldridge 90 day supply: 90, 0 refills Diagnosis: Pharmacy: [facility] [address], [id number] - Last Documented On 1 10:04AM By SANAM GROVE ; [facility] Ibuprofen 800 MG OR TABS Provider: MERRY GROVE 30 day supply: 120, 0 refills Diagnosis: Pharmacy: [facility] ([place] [id number] [facility], [phone] - Last Documented On 1 10:04AM By SANAM GROVE ; [facility] Current Medications (continue as prescribed) Singulair 10 MG OR TABS 02/17/2011 Provider: Diagnosis: Last Documented On 02/17/2011 9:51AM By EDUARDO STAFFORD ; [facility] Past Medications on file Ortho-Cyclen (28) 0.25-35 MG-MCG OR TABS 02/11/2010 - 02/06/2011 Provider: SANAM SMIPSON Diagnosis: Last Documented On 0 11:04AM By SANAM GROVE ; [facility] Medications Administered Includes: Administered Medications from this encounter No Administered Medications Recorded Vital Signs Includes: Vital Signs from this encounter Vital Name 02/17/2011 10:15A Blood Pressure Sitting L 114/68 BP Cuff Size Large Height (in) 59.5 Weight (lb) 173 Body Mass Index (kg/m2) 34.4 Body Surface Area (m2) 1.7 Last Documented: On 02/17/2011 9:48AM ; [facility] Results Includes: Results discussed during this encounter No Results Recorded For Specified Dates History of Present Illness Includes: History of Present Illness from this encounter No History of Present Illness Recorded Social History Description Last Updated Alcohol use Occ 02/17/2011 Last Documented On 1 10:05AM ; [facility] Not using drugs 02/17/2011 Last Documented On 1 10:05AM ; [facility] Sexually active 02/17/2011 Last Documented On 1 10:05AM ; [facility] Non-smoker 02/11/2010 Last Documented On 1 9:42AM ; [facility] Social history unchanged got Last Documented On 1 9:42AM ; [facility] Occupation [employer] 10/22/2009 Last Documented On 1 9:42AM ; [facility] Sexually active with 1 partners in the l ast year 10/22/2009 Last Documented On 1 9:42AM ; [facility] Alcohol 10/22/2009 Last Documented On 1 9:42AM ; [facility] Caffeine use 10/22/2009 Last Documented On 1 9:42AM ; [facility] Daily tea consumption was four cups per day 10/22/2009 Last Documented On 1 9:42AM ; [facility] Drug use by a sexual partner does not in clude intravenous drug use 10/22/2009 Last Documented On 1 9:42AM ; [facility] Educational level: grade 10/22/2009 Last Documented On 1 9:42AM ; [facility] In grade 13-16 (college) 10/22/2009 Last Documented On 1 9:42AM ; [facility] Marital history 10/22/2009 Last Documented On 1 9:42AM ; [facility] Partner has not had a STD in the past ye ar 10/22/2009 Last Documented On 1 9:42AM ; [facility] Patient does not report having sex when she didn't want to 10/22/2009 Last Documented On 1 9:42AM ; [facility] Patient has not had sex unde r the influence of alcohol or drugs in the last year 10/22/2009 Last Documented On 1 9:42AM ; [facility] Sexual history : painful intercourse Last Documented On 1 9:42AM ; [facility] Sexual partner has not had o ther partners while in relationship with patient 10/22/2009 Last Documented On 1 9:42AM ; [facility] Sexual partner has not had sex with pros titutes 10/22/2009 Last Documented On 1 9:42AM ; [facility] The racial background 10/22/2009 Last Documented On 1 9:42AM ; [facility] The racial background is 10/22 Last Documented On 1 9:42AM ; [facility] Using condoms 10/22/2009 Last Documented On 1 9:42AM ; [facility] Smoking Status Unknown Procedures and Surgical History Includes: Procedures from this encounter Procedures Code Diagnosis Performing Provider Service L ocation Service Date cervical Pap smear 92636 Last Documented On 1 9:50AM ; [facility] a fecal occult blood test was negative 50300 Last Documented On 1 9:52AM ; [facility] Chlamydia trachomatis culture was perfor med Last Documented On 1 10:05AM ; [facility] Neisseria gonorrhea culture was performe d Last Documented On 1 10:05AM ; [facility] Surgical History Last Updated No history of appendectomy 02/11/2010 Last Documented On 1 9:42AM ; [facility] No history of cholecystectomy 02/11/2010 Last Documented On 1 9:42AM ; [facility] No history of Loop electrode excision of cervix (LEEP) 02/11/2010 Last Documented On 1 9:42AM ; [facility] No history of total abdominal hysterecto my 02/11/2010 Last Documented On 1 9:42AM ; [facility] No history of tubal ligation 02/11/2010 Last Documented On 1 9:42AM ; [facility] No history of vaginal hysterectomy 02/11 Last Documented On 1 9:42AM ; [facility] Medical History Includes: Medical History addressed during this encounter Description Last Updated History of human papilloma virus infecti on 02/17/2011 Last Documented On 1 10:05AM ; [facility] History of hyperlipidemia 02/17/2011 Last Documented On 1 10:05AM ; [facility] History of cervical dysplasia Ho cryo Last Documented On 1 10:05AM ; [facility] No recent change in medical history 01/30 Last Documented On 1 10:05AM ; [facility] LMP: 02/07/2011 02/17/2011 Last Documented On 1 10:05AM ; [facility] Last mammogram date: 02/09/2011 1 Last Documented On 1 10:05AM ; [facility] Last pap smear date 02/11/2010 02/17/2011 Last Documented On 1 10:05AM ; [facility] Contraception: mononessa 02/11/2010 Last Documented On 1 9:42AM ; [facility] History of allergic rhinitis 02/11/2010 Last Documented On 1 9:42AM ; [facility] No history of dysfunctional uterine blee ding 02/11/2010 Last Documented On 1 9:42AM ; [facility] No history of urinary tract infection Last Documented On 1 9:42AM ; [facility] No history of vaginitis 02/11/2010 Last Documented On 1 9:42AM ; [facility] Result: normal 02/11/2010 Last Documented On 1 9:42AM ; [facility] Result: normal 02/11/2010 Last Documented On 1 9:42AM ; [facility] A breast self-exam was performed Last Documented On 1 9:42AM ; [facility] A Pap smear was performed 10/22/2009 Last Documented On 1 9:42AM ; [facility] An HIV test was not performed 10/22/2009 Last Documented On 1 9:42AM ; [facility] Chlamydia 10/22/2009 Last Documented On 1 9:42AM ; [facility] Oral contraceptives 10/22/2009 Last Documented On 1 9:42AM ; [facility] Previous hospitalizations [facility] SURGERY IN 1998,POLYPECTOMY FROM UTERUS IN 2004 10/22/2009 Last Documented On 1 9:42AM ; [facility] Previously diagnosed with a STD 10/22/19 10 Last Documented On 1 9:42AM ; [facility] Taking OTC medications ASPIRIN 0 Last Documented On 1 9:42AM ; [facility] Family History Includes: Family History addressed during this encounter Description Last Updated Family history of hypercholesterolemia m other, brother et self 02/17/2011 Last Documented On 1 10:05AM ; [facility] Family history unchanged 02/17/2011 Last Documented On 1 10:05AM ; [facility] No family history of hypertension 2010 Last Documented On 1 10:05AM ; [facility] No family history of uterine cancer 01/30 Last Documented On 1 10:05AM ; [facility] No heart disease 02/17/2011 Last Documented On 1 10:05AM ; [facility] Family history of diabetes mellitus moth er 02/11/2010 Last Documented On 1 9:42AM ; [facility] Family history of malignant neoplasm of the large intestine father 02/11/2010 Last Documented On 1 9:42AM ; [facility] No family history of malignant female br east neoplasm 02/11/2010 Last Documented On 1 9:42AM ; [facility] No family history of malignant neoplasm of the ovary 02/11/2010 Last Documented On 1 9:42AM ; [facility] Family history of Diabetes 10/22/2009 Last Documented On 1 9:42AM ; [facility] Review of Systems Includes: Review [...] Location Date Check-In Time Check-Out Time Diagnosis [employer] 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 Neoplasm Rectum,Normal Female Exam Clinical Notes Includes: Clinical Notes from this encounter No Clinical Notes Recorded
--- OUTSIDE RECORDS SUMMARY | 2025-07-03 16:00 | XMS_ITS | Clinical Summary ---
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 SCREEN MAMMOGRAM NECRadiology/*MAMMOGRAM: Mammogram - Last Documented On 02/11/2010 11:05AM ; [facility] ? Cervical Pap SmearIn office procedures/*Clia Waived Labs: Pap Smear Taken - Last Documented On 02/11/2010 11:05AM ; [facility] ? SCREEN MAL NEOP-RECTUMIn office procedures/*Clia Waived Labs: *FIT Test (Fecal Occult Test) - Last Documented On 02/11/2010 11:05AM ; [facility] - Follow-up visit 1 year or as needed - Last Documented On 02/11/2010 11:05AM ; [facility] Pt to get fasting lipid profile at lab in [place] - rx given. - Last Documented On 02/11/2010 11:05AM ; [facility] Pending Tests Order Diagnosis Results Due Ordering P rovider In office procedures - *Clia Waived Labs Pap Smear Taken SCREEN MAL NEOP-CERVIX 02/25/10 SANAM BLOCK-BC Last Documented On 0 11:04AM ; [facility] In office procedures - *Clia Waived Labs *FIT Test (Fecal Occult Test) SCREEN MAL NEOP-RECTUM 02/25/10 SANAM COBB WHNP-BC Last Documented On 0 11:04AM ; [facility] Radiology @ other - *MAMMOGRAPHY Mammogram SCREEN MAMMOGRAM NEC 02/25/10 SANAMAMBROSIO KIM JEAN WHNP-BC Last Documented On 0 11:06AM ; [facility] Instructions to patient Instructions for patient : B reast Self Exam discussed Last Documented On 0 10:42AM ; [facility] Lose weight Last Documented On 0 10:53AM ; [facility] Education and Decision Aids were provided during visit for: Patient Education: Daily jose cium and vitamin D Last Documented On 0 10:42AM ; [facility] Patient Education: weight be aring exercise Last Documented On 0 10:53AM ; [facility] Assessments Includes: Assessments from this encounter Findings - Normal routine history and physical - Last Documented On 02/11/2010 11:05AM ; [facility] - Routine pelvic exam - Last Documented On 02/11/2010 11:05AM ; [facility] - Screening Malig. Neoplasm Rectum - Last Documented On 02/11/2010 11:05AM ; [facility] Instructions Includes: Instructions from this encounter Instructions to patient Instructions for patient : B reast Self Exam discussed Last Documented On 0 10:42AM ; [facility] Lose weight Last Documented On 0 10:53AM ; [facility] Education and Decision Aids were provided during visit for: Patient Education: Daily jose cium and vitamin D Last Documented On 0 10:42AM ; [facility] Patient Education: weight be aring exercise Last Documented On 0 10:53AM ; [facility] Medical Equipment - Implanted Devices Includes: Current Devices No Medical Equipment Recorded Medications Includes: Medications discussed during this encounter and other current Medications New / Renewed during this visit SANAM COBB NP-BC on 02/11/2010 Ortho-Cyclen (28) 0.25-35 MG-MCG OR TABS Provider: SANAM GARDNERB C 90 day supply: 90, 3 refills Diagnosis: Pharmacy: [facility] - [address] [facility], [id number] - Last Documented On 0 11:04AM By SANAM GROVE ; [facility] Current Medications (continue as prescribed) Singulair 10 MG OR TABS 02/17/2011 Provider: Diagnosis: Last Documented On 02/17/2011 9:51AM By EDUARDO STAFFORD ; [facility] Past Medications on file Ortho-Cyclen (28) 0.25-35 MG-MCG OR TABS 02/17/2011 - 05/18/2011 Provider: SANAM SIMPSON Diagnosis: Last Documented On 1 10:04AM By SANAM GROVE ; [facility] Ibuprofen 800 MG OR TABS 02/17/2011 - 03/19/2011 Provi shelia: SANAM GROVE Diagnosis: Last Documented On 1 10:04AM By SANAM GROVE ; [facility] Medications Administered Includes: Administered Medications from this encounter No Administered Medications Recorded Vital Signs Includes: Vital Signs from this encounter Vital Name 02/11/2010 10:30A Blood Pressure Sitting R 122/70 Height (in) 59.5 Weight (lb) 182 Body Mass Index (kg/m2) 36.1 Body Surface Area (m2) 1.8 Last Documented: On 02/11/2010 10:44A M ; [facility] Results Includes: Results discussed during [...] 02/11/2010 Last Documented On 0 11:05AM ; [facility] Not sexually active 02/11/2010 Last Documented On 0 11:05AM ; [facility] Social history unchanged got Last Documented On 0 11:05AM ; [facility] Smoking Status Unknown Procedures and Surgical History Includes: Procedures from this encounter Procedures Code Diagnosis Performing Provider Service L ocation Service Date cervical Pap smear 66836 Last Documented On 0 10:42AM ; [facility] a fecal occult blood test was negative [id number] Last Documented On 0 10:42AM ; [facility] history of abnormal Pap smear of cervix Long time ago Last Documented On 0 10:49AM ; [facility] Surgical History Last Updated No history of appendectomy 02/11/2010 Last Documented On 0 11:05AM ; [facility] No history of cholecystectomy 02/11/2010 Last Documented On 0 11:05AM ; [facility] No history of Loop electrode excision of cervix (LEEP) 02/11/2010 Last Documented On 0 11:05AM ; [facility] No history of total abdominal hysterecto my 02/11/2010 Last Documented On 0 11:05AM ; [facility] No history of tubal ligation 02/11/2010 Last Documented On 0 11:05AM ; [facility] No history of vaginal hysterectomy 02/11 Last Documented On 0 11:05AM ; [facility] Medical History Includes: Medical History addressed during this encounter Description Last Updated Contraception: mononessa 02/11/2010 Last Documented On 0 11:05AM ; [facility] History of allergic rhinitis 02/11/2010 Last Documented On 0 11:05AM ; [facility] History of cervical dysplasia 02/11/2010 Last Documented On 0 11:05AM ; [facility] LMP: 01/31/2010 02/11/2010 Last Documented On 0 11:05AM ; [facility] No history of dysfunctional uterine blee ding 02/11/2010 Last Documented On 0 11:05AM ; [facility] No history of human papilloma virus infe ction 02/11/2010 Last Documented On 0 11:05AM ; [facility] No history of urinary tract infection Last Documented On 0 11:05AM ; [facility] No history of vaginitis 02/11/2010 Last Documented On 0 11:05AM ; [facility] Recent change in medical history 010 Last Documented On 0 11:05AM ; [facility] Last mammogram date: 02/16/2009 0 Last Documented On 0 11:05AM ; [facility] Last pap smear date 02/10/2009 02/11/2010 Last Documented On 0 11:05AM ; [facility] Result: normal 02/11/2010 Last Documented On 0 11:05AM ; [facility] Result: normal 02/11/2010 Last Documented On 0 11:05AM ; [facility] Family History Includes: Family History addressed during this encounter Description Last Updated Family history changed 02/11/2010 Last Documented On 0 11:05AM ; [facility] Family history of diabetes mellitus moth er 02/11/2010 Last Documented On 0 11:05AM ; [facility] Family history of malignant neoplasm of the large intestine father 02/11/2010 Last Documented On 0 11:05AM ; [facility] No family history of malignant female br east neoplasm 02/11/2010 Last Documented On 0 11:05AM ; [facility] No family history of malignant neoplasm of the ovary 02/11/2010 Last Documented On 0 11:05AM ; [facility] Review of Systems Includes: Review of [...] Location Date Check-In Time Check-Out Time Diagnosis 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 Neoplasm Rectum,Routin e Pelvic Exam Clinical Notes Includes: Clinical Notes from this encounter No Clinical Notes Recorded
--- OUTSIDE RECORDS SUMMARY | 2025-07-03 16:01 | XMS_ITS | Data Portability ---
Author Organization [facility] Address [address] [place] [address] Care Team Providers Care Production Technologist Name Role Phone MARILU SANTILLAN Primary Care Provider 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 Get diabetic eye exam. Return to clinic in 4-6 months mammograms and hospital internship handled by her student counsellor arjun Not available 06/15/2024 22:47:28 08/12/2024 08/12/2024 [...] sinus rhythm with no clear-cut ischemic change [email or web address] Not available 08/14/2024 23:05:13 12/10/2024 12/10/2024 continue current therapy healthy lifestyle care instructions blood work ordered diagnosis and assessment and plan have been discussed we will try trazodone 50 mg q.h.s. p.r.n. follow up with me in 6 months [email or web address] Not available 12/10/2024 23:04:14 Plan of Treatment Reminders Order Date Submit Date Provider Last Modified By Organization Details Last Modified Time Details Appointments ANY 15 2024 03:15P M Marilu Santillan MD Not available Not available Not available Lab HbA1c (hemoglob in A1c), blood 2024 025 [facility], [address], [place], [address], 12/18/2024 13:50:07 lipid panel, serum 2024 025 [facility], [address], [place], [address], 12/13/2024 00:54:37 CBC w/ auto diff 2024 025 [facility], [address], [place], [address], 12/16/2024 12:25:32 CMP, serum or plasma 2024 025 [facility], [address], [place], [address], 12/12/2024 21:09:04 HbA1c (hemoglob in A1c), blood 2023 024 [email or web address] In-Office Order, Internal Use Only DO Not Attach Compendium DO Not Attach Compendium, Do Not Delete/merge, [id number] 08/23/2024 10:10:25 Referral None recorded. Procedures None recorded. Surgeries None recorded. Imaging electroca rdiogram 2023 024 In-Office Order, Internal Use Only DO Not Attach Compendium DO Not Attach Compendium, Do Not Delete/merge, [id number] 08/12/2024 21:09:20 Medication Orders None recorded. Patient TargetsNo targets recorded. Patient Instructions Encounter Date Encounter Id Patient Instructions Last Modified By Organization Details Last Modified Time 06/12/2024 [id number] A healthy lifestyle: care instructions [email or web address] Not available 06/15/2024 22:47:43 08/12/2024 [id number] A healthy lifestyle: care instructions [email or web address] Not available 08/12/2024 17:46:31 12/10/2024 [id number] A healthy lifestyle: care instructions [email or web address] Not available 12/10/2024 22:31:57 Reason for Referral None Reported. Results Created Date Observation Date Name Description Value Unit Range Abnormal Flag Note LastModifiedBy Organization Detail LastModifiedTime 08/23/20 24 08/23/2024 HbA1c (hemo globi n A1c), blood HbA1c 6.1 Not Available In-Office Order Internal Use Only DO Not Attach Compendium DO Not Attach Compendium, Do Not Delete/merge, [id number] 08/23/2024 09:42:10 03/08/20 25 03/09/2025 LIPID PANEL cholesterol, total 116 mg/dL 100-19 9 Not Available [facility] ([facility]) [address] [place], [address], 03/09/2025 09:07:35 03/08/20 25 03/09/2025 LIPID PANEL triglyceride s 257 mg/dL 0-149 above high normal Not Available [facility] ([facility]) [address] [place], [address], 03/09/2025 09:07:35 03/08/20 25 03/09/2025 LIPID PANEL HDL cholesterol 35 mg/dL >39 below low normal Not Available [facility] ([facility]) [address] [place], [address], 03/09/2025 09:07:35 03/08/20 25 03/09/2025 LIPID PANEL VLDL cholesterol jose 40 mg/dL 5-40 Not Available [facility] ([facility]) [address] [place], [address], 03/09/2025 09:07:35 03/08/20 25 03/09/2025 LIPID PANEL LDL chol calc ([facility]) 41 mg/dL 0-99 Not Available [facility] ([facility]) [address] [place], [address], 03/09/2025 09:07:35 03/08/20 25 03/09/2025 COMP. METAB OLIC PANEL (14) glucose 137 mg/dL 70-99 above high normal Not Available [facility] ([facility]) [address], [place], [address], 03/09/2025 09:07:36 03/08/20 25 03/09/2025 COMP. METAB OLIC PANEL (14) BUN 9 mg/dL 6-24 Not Available [facility] ([facility]) [address] [place], [address], 03/09/2025 09:07:36 03/08/20 25 03/09/2025 COMP. METAB OLIC PANEL (14) creatinine 0.63 mg/dL 0.57-1 .00 Not Available [facility] ([facility]) [address] [place], [address], 03/09/2025 09:07:36 03/08/20 25 03/09/2025 COMP. METAB OLIC PANEL (14) eGFR 104 mL/mi n/1.7 3 >59 Not Available [facility] ([facility]) [address] [place], [address], 03/09/2025 09:07:36 03/08/20 25 03/09/2025 COMP. METAB OLIC PANEL (14) BUN/creatini ne ratio 14 9-23 Not Available [facility] ([facility]) [address] [place], [address], 03/09/2025 09:07:36 03/08/20 25 03/09/2025 COMP. METAB OLIC PANEL (14) sodium 140 mmol/ L 134-14 4 Not Available [facility] ([facility]) [address] [place], [address], 03/09/2025 09:07:36 03/08/20 25 03/09/2025 COMP. METAB OLIC PANEL (14) potassium 4.0 mmol/ L 3.5-5. 2 Not Available [facility] ([facility]) [address] [place], [address], 03/09/2025 09:07:36 03/08/20 25 03/09/2025 COMP. METAB OLIC PANEL (14) chloride 102 mmol/ L 96-106 Not Available [facility] ([facility]) [address] [place], [address], 03/09/2025 09:07:36 03/08/20 25 03/09/2025 COMP. METAB OLIC PANEL (14) carbon dioxide, total 22 mmol/ L 20-29 Not Available [facility] ([facility]) [address] [place], [address], 03/09/2025 09:07:36 03/08/20 25 03/09/2025 COMP. METAB OLIC PANEL (14) calcium 9.2 mg/dL 8.7-10 .2 Not Available [facility] ([facility] [address] [place], [address], 03/09/2025 09:07:36 03/08/20 25 03/09/2025 COMP. METAB OLIC PANEL (14) protein, total 6.3 g/dL 6.0-8. 5 Not Available [facility] ([facility]) [address] [place], [address], 03/09/2025 09:07:36 03/08/20 25 03/09/2025 COMP. METAB OLIC PANEL (14) albumin 4.3 g/dL 3.8-4. 9 Not Available [facility] ([facility] [address] [place], [address], 03/09/2025 09:07:36 03/08/20 25 03/09/2025 COMP. METAB OLIC PANEL (14) globulin, total 2.0 g/dL 1.5-4. 5 Not Available [facility] ([facility]) [address] [place], [address], 03/09/2025 09:07:36 03/08/20 25 03/09/2025 COMP. METAB OLIC PANEL (14) bilirubin, total 1.4 mg/dL 0.0-1. 2 above high normal Not Available [facility] ([facility]) [address] [facility], [place], [address], 03/09/2025 09:07:36 03/08/20 25 03/09/2025 COMP. METAB OLIC PANEL (14) alkaline phosphatase 103 IU/L 44-121 Not Available [facility] ([facility]) [address] [facility], [place], [address], 03/09/2025 09:07:36 03/08/20 25 03/09/2025 COMP. METAB OLIC PANEL (14) AST (SGOT) 24 IU/L 0-40 Not Available [facility] ([facility]) [address] [facility], [place], [address], 03/09/2025 09:07:36 03/08/20 25 03/09/2025 COMP. METAB OLIC PANEL (14) ALT (SGPT) 18 IU/L 0-32 Not Available [facility] ([facility]) [address] [facility], [place], [address], 03/09/2025 09:07:36 06/10/20 25 06/10/2025 urina lysis , compl ete color, urine (obs) YELLOW Not Available Not Available 06/02 05:04:23 06/10/20 25 06/10/2025 urina lysis , compl ete clarity of urine (obs) HAZY Not Available Not Available 06/17/2025 05:04:23 06/10/20 25 06/10/2025 urina lysis , compl ete specific gravity, urine >1.030 low: 1high: 1.03 high Not Available Not Available 06/17/2025 05:04:23 06/10/20 25 06/10/2025 urina lysis , compl ete pH, urine 6 low: 5high: 9 Not Available Not Available 06/17/2025 05:04:23 06/10/2006/10/2025 urina lysis , compl ete leukocyte esterase, ql, test strip, urine (obs) 1+ text: negati ve abnormal Not Available Not Available 06/17/2025 05:04:23 06/10/2006/10/2025 urina lysis , compl ete nitrite, ql, test strip, urine (obs) POSITI VE text: negati ve abnormal Not Available Not Available 06/17/2025 05:04:23 06/10/2006/10/2025 urina lysis , compl ete protein, ql, automated test strip, urine TRACE text: negati ve abnormal Not Available Not Available 06/17/2025 05:04:06/10/2006/10/2025 urina lysis , compl ete glucose, ql, automated test strip, urine (obs) TRACE text: negati ve abnormal Not Available Not Available 06/17/2025 05:04:23 06/10/2006/10/2025 urina lysis , compl ete ketones, ql, automated test strip, urine (obs) TRACE text: negati ve abnormal Not Available Not Available 06/17/2025 05:04:23 06/10/20 25 06/10/2025 urina lysis , compl ete total bilirubin, ql, automated test strip, urine (obs) NEGATI VE text: negati ve Not Available Not Available 06/17/2025 05:04:23 06/10/2006/10/2025 urina lysis , compl ete erythrocytes , count, automated test strip, urine (obs) TRACE text: negati ve abnormal Not Available Not Available 06/17/2025 05:04:06/10/2006/10/2025 urina lysis , compl ete leukocytes, count, microscopy high power field, urine sediment (obs) 10-25 text: 0 - 5 /hpf Not Available Not Available 06/17/2025 05:04:23 06/10/20 25 06/10/2025 urina lysis , compl ete erythrocytes , count, microscopy high power field, urine sediment (obs) 0-5 text: 0 - 5 /hpf Not Available Not Available 06/17/2025 05:04:23 06/10/2006/10/2025 urina lysis , compl ete epithelial cells, ql, light microscopy, urine sediment (obs) FEW text: /hpf Not Available Not Available 06/17/2025 05:04:06/10/2006/10/2025 urina lysis , compl ete bacteria, count, microscopy high power field, urine sediment (obs) MODERA TE text: /hpf Not Available Not Available 06/17/2025 05:04:06/10/2006/10/2025 urina lysis , compl ete lab interpretati on Abnorm al Not Available Not Available 05:04:06/10/2006/10/2025 CMP, serum or plasm a glucose, qn [mass/volume ], serum or plasma 232 text: 70 - 99 mg/dL high Not Available Not Available 06/17/2025 05:04:06/10/2006/10/2025 CMP, serum or plasm a BUN (blood urea nitrogen), serum or plasma 9 text: 7 - 18 mg/dL Not Available Not Available 06/17/2025 05:04:06/10/2006/10/2025 CMP, serum or plasm a creatinine, serum or plasma 0.74 text: 0.55 - 1.02 mg/dL Not Available Not Available 06/17/2025 05:04:06/10/2006/10/2025 CMP, serum or plasm a sodium, serum or plasma 138 text: 136 - 145 mmol/L Not Available Not Available 06/17/2025 05:04:06/10/2006/10/2025 CMP, serum or plasm a potassium, serum or plasma 3.7 text: 3.5 - 5.1 mmol/L Not Available Not Available 06/17/2025 05:04:06/10/2006/10/2025 CMP, serum or plasm a chloride, serum or plasma 100 text: 100 - 108 mmol/L Not Available Not Available 06/17/2025 05:04:06/10/2006/10/2025 CMP, serum or plasm a CO2, (carbon dioxide), total, serum or plasma 25.5 text: 21 - 32 mmol/L Not Available Not Available 06/17/2025 05:04:06/10/2006/10/2025 CMP, serum or plasm a calcium, serum or plasma 9.5 text: 8.5 - 10.1 mg/dL Not Available Not Available 06/17/2025 05:04:06/10/2006/10/2025 CMP, serum or plasm a bilirubin, total, serum or plasma 2.2 text: 0.2 - 1.2 mg/dL high Not Available Not Available 06/17/2025 05:04:06/10/2006/10/2025 CMP, serum or plasm a protein, total, serum 7.6 text: 6.4 - 8.2 g/dL Not Available Not Available 06/17/2025 05:04:06/10/2006/10/2025 CMP, serum or plasm a albumin, serum or plasma 4.1 text: 3.4 - 5.0 g/dL Not Available Not Available 06/17/2025 05:04:06/10/2006/10/2025 CMP, serum or plasm a AST/SGOT (aspartate aminotransfe rase), serum or plasma 38 U/L low: 15U/Lh igh: 37U/L high Not Available Not Available 06/17/2025 05:04:06/10/2006/10/2025 CMP, serum or plasm a ALT (alanine aminotransfe rase), serum or plasma 43 U/L low: 14U/Lh igh: 55U/L Not Available Not Available 06/17/2025 05:04:06/10/2006/10/2025 CMP, serum or plasm a alkaline phosphatase, serum or plasma 118 U/L low: 50U/Lh igh: 136U/L Not Available Not Available 06/17/2025 05:04:06/10/2006/10/2025 CMP, serum or plasm a anion gap, serum or plasma 12.5 text: 5 - 15 mmol/L Not Available Not Available 06/17/2025 05:04:06/10/2006/10/2025 CMP, serum or plasm a BUN/creatini ne, ratio, serum 12.2 low: 6high: 26 Not Available Not Available 06/17/2025 05:04:06/10/2006/10/2025 CMP, serum or plasm a albumin/glob ulin, ratio, serum 1.2 text: 1.0 - 2.0 ratio Not Available Not Available 06/17/2025 05:04:06/10/2006/10/2025 CMP, serum or plasm a glomerular filtration rate/1.73 sq M predicted, qn, creatinine based formula (CKD-epi 2020), serum or plasma or blood >90 text: >90 mL/min /1.73 M2 NOTE: eGFR is not calcu lated for patie nts <18 years of age. This is an estim ated GFR calcu latio n using the new CKD EPI creat inine equat ion witho ut race and so does not requi re a corre ction facto r for race. This estim ated GFR shoul d not be used for calcu latin g drug doses . Not Available Not Available 06/17/2025 05:04:06/10/2006/10/2025 CMP, serum or plasm a lab interpretati on Abnorm al Not Available Not Available 05:04:06/10/2006/10/2025 CBC w/ auto diff WBC, auto, blood 6.92 text: 4.4 - 11.0 x10'3/ uL Not Available Not Available 06/17/2025 05:04:06/10/2006/10/2025 CBC w/ auto diff RBC count, blood 4.56 text: 4.50 - 5.10 x10'6/ uL Not Available Not Available 06/17/2025 05:04:06/10/2006/10/2025 CBC w/ auto diff hemoglobin (Hb), blood 12.6 text: 12.3 - 15.3 g/dL Not Available Not Available 06/17/2025 05:04:06/10/2006/10/2025 CBC w/ auto diff hematocrit, blood 38 % low: 35.9%h igh: 44.6% Not Available Not Available 06/17/2025 05:04:06/10/2006/10/2025 CBC w/ auto diff MCV, qn (obs) 83.3 text: 80.0 - 96.0 fL Not Available Not Available 06/17/2025 05:04:23 06/10/20 25 06/10/2025 CBC w/ auto diff MCH, qn (obs) 27.6 pg low: 25.3pg high: 30.9pg Not Available Not Available 06/17/2025 05:04:06/10/2006/10/2025 CBC w/ auto diff mean corpuscular hemoglobin concentratio n, qn, RBC 33.2 text: 31.0 - 34.1 g/dL Not Available Not Available 06/17/2025 05:04:06/10/2006/10/2025 CBC w/ auto diff RDW 13 % low: 12.4%h igh: 15.1% Not Available Not Available 06/17/2025 05:04:06/10/2006/10/2025 CBC w/ auto diff platelet count, blood 182 text: 151 - 353 x10'3/ uL Not Available Not Available 06/17/2025 05:04:06/10/2006/10/2025 CBC w/ auto diff platelet mean volume, qn, blood (obs) 10.8 text: 9.6 - 12.0 fL Not Available Not Available 06/17/2025 05:04:06/10/2006/10/2025 CBC w/ auto diff erythrocytes , ql, automated, blood (obs) NORMAL Not Available Not Available 06/17/2025 05:04:06/10/2006/10/2025 CBC w/ auto diff platelet morphology finding, blood (obs) NORMAL Not Available Not Available 06/17/2025 05:04:06/10/2006/10/2025 CBC w/ auto diff leukocyte morphology finding, blood (obs) NORMAL Not Available Not Available 06/17/2025 05:04:06/10/20 25 06/10/2025 CBC w/ auto diff lymphocytes/ 100 leukocytes, automated, blood (obs) 20.2 % low: 15.8%h igh: 45% Not Available Not Available 06/17/2025 05:04:06/10/20 25 06/10/2025 CBC w/ auto diff neutrophils/ 100 leukocytes, automated, blood (obs) 74.3 % low: 42.1%h igh: 71.9% high Not Available Not Available 06/17/2025 05:04:23 06/10/2006/10/2025 CBC w/ auto diff monocytes/10 0 leukocytes, automated, blood (obs) 4.5 % low: 5.7%hi gh: 12.5% low Not Available Not Available 06/17/2025 05:04:23 06/10/2006/10/2025 CBC w/ auto diff eosinophils/ 100 leukocytes, automated, blood (obs) 0.3 % low: 0%high : 5.6% Not Available Not Available 06/17/2025 05:04:06/10/2006/10/2025 CBC w/ auto diff basophils/10 0 leukocytes, automated, blood (obs) 0.3 % low: 0%high : 1.3% Not Available Not Available 06/17/2025 05:04:23 06/10/2006/10/2025 CBC w/ auto diff neutrophils, count, blood (obs) 5.14 text: 1.40 - 6.00 x10'3/ uL Not Available Not Available 06/17/2025 05:04:23 06/10/2006/10/2025 CBC w/ auto diff immature granulocytes /100 leukocytes, automated, blood (obs) 0.4 % low: 0%high : 0.5% Not Available Not Available 06/17/2025 05:04:23 06/10/2006/10/2025 CBC w/ auto diff lymphocytes, blood (obs) 1.4 text: 0.80 - 4.70 x10'3/ uL Not Available Not Available 06/17/2025 05:04:23 06/10/2006/10/2025 CBC w/ auto diff lab interpretati on Abnorm al Not Available Not Available 05:04:06/10/2006/10/2025 magne sium, serum or plasm a magnesium, serum or plasma 1.5 text: 1.8 - 2.4 mg/dL low Not Available Not Available 06/17/2025 05:04:23 06/10/2006/10/2025 magne sium, serum or plasm a lab interpretati on Abnorm al Not Available Not Available 05:04:23 06/10/20 25 06/10/2025 gluco se, QN, test strip , auto, blood glucose, qn, test strip, auto, blood 194 mg/dL low: 70mg/d Lhigh: 110mg/ dL high Not Available Not Available 06/17/2025 05:04:24 06/10/20 25 06/10/2025 gluco se, QN, test strip , auto, blood lab interpretati on Abnorm al Not Available Not Available 05:04:24 06/17/20 25 06/18/2025 LIPID PANEL cholesterol, total 112 mg/dL 100-19 9 Not Available [facility] ([facility]) [address] [place], [address], 06/18/2025 10:13:30 06/17/20 25 06/18/2025 LIPID PANEL triglyceride s 141 mg/dL 0-149 Not Available [facility] ([facility]) [address] [place], [address], 06/18/2025 10:13:30 06/17/20 25 06/18/2025 LIPID PANEL HDL cholesterol 39 mg/dL >39 below low normal Not Available [facility] ([facility]) [address] [place], [address], 06/18/2025 10:13:30 06/17/20 25 06/18/2025 LIPID PANEL VLDL cholesterol jose 25 mg/dL 5-40 Not Available [facility] ([facility]) [address] [place], [address], 06/18/2025 10:13:30 06/17/20 25 06/18/2025 LIPID PANEL LDL chol calc ([facility]) 48 mg/dL 0-99 Not Available [facility] ([facility]) [address] [place], [address], 06/18/2025 10:13:30 06/17/20 25 06/18/2025 COMP. METAB OLIC PANEL (14) glucose 125 mg/dL 70-99 above high normal Not Available [facility] ([facility]) [address] [place], [address], 06/18/2025 10:13:31 06/17/20 25 06/18/2025 COMP. METAB OLIC PANEL (14) BUN 7 mg/dL 6-24 Not Available [facility] ([facility]) [address] [place], [address], 06/18/2025 10:13:31 06/17/20 25 06/18/2025 COMP. METAB OLIC PANEL (14) creatinine 0.71 mg/dL 0.57-1 .00 Not Available [facility] ([facility]) [address] [facility], [place], [address], 06/18/2025 10:13:31 06/17/20 25 06/18/2025 COMP. METAB OLIC PANEL (14) eGFR 99 mL/mi n/1.7 3 >59 Not Available [facility] ([facility]) [address] [facility], [place], [address], 06/18/2025 10:13:31 06/17/20 25 06/18/2025 COMP. METAB OLIC PANEL (14) BUN/creatini ne ratio 10 9-23 Not Available [facility] ([facility]) [address] [place], [address], 06/18/2025 10:13:31 06/17/20 25 06/18/2025 COMP. METAB OLIC PANEL (14) sodium 139 mmol/ L 134-14 4 Not Available [facility] ([facility]) [address] [place], [address], 06/18/2025 10:13:31 06/17/20 25 06/18/2025 COMP. METAB OLIC PANEL (14) potassium 4.7 mmol/ L 3.5-5. 2 Not Available [facility] ([facility]) [address] [place], [address], 06/18/2025 10:13:31 06/17/20 25 06/18/2025 COMP. METAB OLIC PANEL (14) chloride 100 mmol/ L 96-106 Not Available [facility] ([facility]) [address] [place], [address], 06/18/2025 10:13:31 06/17/20 25 06/18/2025 COMP. METAB OLIC PANEL (14) carbon dioxide, total 19 mmol/ L 20-29 below low normal Not Available [facility] ([facility]) [address] [place], [address], 06/18/2025 10:13:31 06/17/20 25 06/18/2025 COMP. METAB OLIC PANEL (14) calcium 10.0 mg/dL 8.7-10 .2 Not Available [facility] ([facility]) [address] [place], [address], 06/18/2025 10:13:31 06/17/20 25 06/18/2025 COMP. METAB OLIC PANEL (14) protein, total 7.2 g/dL 6.0-8. 5 Not Available [facility] ([facility]) [address] [place], [address], 06/18/2025 10:13:31 06/17/20 25 06/18/2025 COMP. METAB OLIC PANEL (14) albumin 4.8 g/dL 3.8-4. 9 Not Available [facility] ([facility]) [address] [place], [address], 06/18/2025 10:13:31 06/17/20 25 06/18/2025 COMP. METAB OLIC PANEL (14) globulin, total 2.4 g/dL 1.5-4. 5 Not Available [facility] ([facility]) [address] [place], [address], 06/18/2025 10:13:31 06/17/20 25 06/18/2025 COMP. METAB OLIC PANEL (14) bilirubin, total 1.4 mg/dL 0.0-1. 2 above high normal Not Available [facility] ([facility]) [address] [place], [address], 06/18/2025 10:13:31 06/17/20 25 06/18/2025 COMP. METAB OLIC PANEL (14) alkaline phosphatase 115 IU/L 49-135 Ple ase note refer ence inter lj solorzano e Not Available [facility] ([facility]) [address] [place], [address], 06/18/2025 10:13:31 06/17/20 25 06/18/2025 COMP. METAB OLIC PANEL (14) AST (SGOT) 37 IU/L 0-40 Not Available [facility] ([facility]) [address] [place], [address], 06/18/2025 10:13:31 06/17/20 25 06/18/2025 COMP. METAB OLIC PANEL (14) ALT (SGPT) 33 IU/L 0-32 above high normal Not Available [facility] ([facility]) [address] [place], [address], 06/18/2025 10:13:31 06/17/20 25 06/18/2025 HEMOG LOBIN A1C hemoglobin A1C 7.9 % 4.8-5. 6 above high normal Predi abete s: 5.7 - 6.4 Diabe alejandra: >6.4 Glyce marciano contr ol for adult s with diabe aeljandra: <7.0 Not Available [facility] ([facility]) [address] [place], [address], 06/18/2025 10:13:32 06/17/20 25 06/18/2025 CBC WITH DIFFE RENTI AL/PL ATELE T WBC 7.2 x10e3 /uL 3.4-10 .8 Not Available [facility] ([facility]) [address] [place], [address], 06/18/2025 10:13:32 06/17/20 25 06/18/2025 CBC WITH DIFFE RENTI AL/PL ATELE T RBC 4.67 x10e6 /uL 3.77-5 .28 Not Available [facility] ([facility]) [address] [facility], [place], [address], 06/18/2025 10:13:32 06/17/20 25 06/18/2025 CBC WITH DIFFE RENTI AL/PL ATELE T hemoglobin 12.7 g/dL 11.1-1 5.9 Not Available [facility] ([facility]) [address] [place], [address], 06/18/2025 10:13:32 06/17/20 25 06/18/2025 CBC WITH DIFFE RENTI AL/PL ATELE T hematocrit 40.2 % 34.0-4 6.6 Not Available [facility] ([facility]) [address] [place], [address], 06/18/2025 10:13:32 06/17/20 25 06/18/2025 CBC WITH DIFFE RENTI AL/PL ATELE T MCV 86 fL 79-97 Not Available [facility] ([facility]) [address] [place], [address], 06/18/2025 10:13:32 06/17/20 25 06/18/2025 CBC WITH DIFFE RENTI AL/PL ATELE T MCH 27.2 pg 26.6-3 3.0 Not Available [facility] ([facility]) [address] [place], [address], 06/18/2025 10:13:32 06/17/20 25 06/18/2025 CBC WITH DIFFE RENTI AL/PL ATELE T MCHC 31.6 g/dL 31.5-3 5.7 Not Available [facility] ([facility]) [address] [facility], [place], [address], 06/18/2025 10:13:32 06/17/20 25 06/18/2025 CBC WITH DIFFE RENTI AL/PL ATELE T RDW 13.1 % 11.7-1 5.4 Not Available [facility] ([facility]) [address] [facility], [place], [address], 06/18/2025 10:13:32 06/17/20 25 06/18/2025 CBC WITH DIFFE RENTI AL/PL ATELE T platelets 245 x10e3 /uL 150-45 0 Not Available [facility] ([facility]) [address] [facility], [place], [address], 06/18/2025 10:13:32 06/17/20 25 06/18/2025 CBC WITH DIFFE RENTI AL/PL ATELE T neutrophils 50 % notest ab. Not Available [facility] ([facility]) [address] [facility], [place], [address], 06/18/2025 10:13:32 06/17/20 25 06/18/2025 CBC WITH DIFFE RENTI AL/PL ATELE T lymphs 41 % notest ab. Not Available [facility] ([facility]) [address] [facility], [place], [address], 06/18/2025 10:13:32 06/17/20 25 06/18/2025 CBC WITH DIFFE RENTI AL/PL ATELE T monocytes 8 % notest ab. Not Available [facility] ([facility]) [address] [facility], [place], [address], 06/18/2025 10:13:32 06/17/20 25 06/18/2025 CBC WITH DIFFE RENTI AL/PL ATELE T eos 1 % notest ab. Not Available [facility] ([facility]) [address] [facility], [place], [address], 06/18/2025 10:13:32 06/17/20 25 06/18/2025 CBC WITH DIFFE RENTI AL/PL ATELE T basos 0 % notest ab. Not Available [facility] ([facility]) [address] [facility], [place], [address], 06/18/2025 10:13:32 06/17/20 25 06/18/2025 CBC WITH DIFFE RENTI AL/PL ATELE T neutrophils (absolute) 3.6 x10e3 /uL 1.4-7. 0 Not Available [facility] ([facility]) [address] [facility], [place] [place], [address], 06/18/2025 10:13:32 06/17/20 25 06/18/2025 CBC WITH DIFFE RENTI AL/PL ATELE T lymphs (absolute) 2.9 x10e3 /uL 0.7-3. 1 Not Available [facility] ([facility]) [address] [facility], [place], [address], 06/18/2025 10:13:32 06/17/20 25 06/18/2025 CBC WITH DIFFE RENTI AL/PL ATELE T monocytes(ab solute) 0.6 x10e3 /uL 0.1-0. 9 Not Available [facility] ([facility]) [address] [facility], [place], [address], 06/18/2025 10:13:32 06/17/20 25 06/18/2025 CBC WITH DIFFE RENTI AL/PL ATELE T eos (absolute) 0.1 x10e3 /uL 0.0-0. 4 Not Available [facility] ([facility]) [address] [facility], [place], [address], 06/18/2025 10:13:32 06/17/20 25 06/18/2025 CBC WITH DIFFE RENTI AL/PL ATELE T baso (absolute) 0.0 x10e3 /uL 0.0-0. 2 Not Available [facility] ([facility]) [address] [facility], [place], [address], 06/18/2025 10:13:32 06/17/20 25 06/18/2025 CBC WITH DIFFE RENTI AL/PL ATELE T immature granulocytes 0 % notest ab. Not Available [facility] ([facility]) [address] [facility], [place], [address], 06/18/2025 10:13:32 06/17/20 25 06/18/2025 CBC WITH DIFFE RENTI AL/PL ATELE T immature grans (abs) 0.0 x10e3 /uL 0.0-0. 1 Not Available [facility] ([facility]) [address] [facility], [place], [address], 06/18/2025 10:13:32 08/12/20 24 08/12/2024 elect rocar diogr am No observ ation record ed. RUSSELL In-Office Order Internal Use Only DO Not Attach Compendium DO Not Attach Compendium, Do Not Delete/merge, [id number] 08/12/2024 17:58:18 08/12/20 24 08/12/2024 elect rocar diogr am No observ ation record ed. RUSSELL In-Office Order Internal Use Only DO Not Attach Compendium DO Not Attach Compendium, Do Not Delete/merge, [id number] 08/12/2024 18:56:40 08/13/20 24 06/29/2023 MAMMO , scree kuldeep, digit al, bilat eral No observ ation record ed. [facility] [address] [place], [address], 08/13/2024 17:21:16 Result Notes None recorded. Problems Name Problem SNOMED Code Status Onset Date Resolution Date Notes Provider Name and Address Organization Details Recorded Time Vertigo 769807634 Active 2023 Mary Taylor MA [facility], [place] - [facility] 4 15:47:28 Type 2 diabetes mellitus 19627332 Active 2023 Mary Taylor MA null, [facility] 4 15:47:44 Essential hypertension 66294432 Active 2023 Mary Taylor MA null, [facility] 4 15:47:48 Hyperlipidemia 16615920 Active 2023 Mary Taylor MA null, [facility] 4 15:47:58 Problem Notes None recorded. Procedures Surgical History Date Name Laterality Status Provider Name and Address Organization Details Recorded Time 12/12/19 19 partial hysterectomy completed Anu Zamora MA [facility] 08/12/2024 17:12:55 Back Surgery completed Seng Arrington MA [facility] 12/13/2023 17:07:34 cholecystectomy completed Seng Arrington MA [facility] 12/13/2023 17:08:16 Imaging Results None recorded. Procedure Notes None recorded. Medical Equipment None Reported. Allergies No known drug allergies Medications Name Sig Start Date Stop Date Status Note LastModified by Organization Details LastModified Time metformin 500 mg tablet TAKE 2 TABLETS BY MOUTH TWICE DAILY 2024 active Not Available Not Available Not Avai lable atorvastati n 20 mg tablet TAKE 1 TABLET BY MOUTH ONCE DAILY 2024 active Not Available Not Available Not Avai lable trazodone 50 mg tablet TAKE 1 TABLET BY MOUTH ONCE DAILY AT BEDTIME FOR SLEEP active Not Available Not Available No t Available azithromyci n 250 mg tablet TAKE 2 [...] Not Available Not Available No t Available sulfamethox azole 800 mg-trimetho prim 160 mg tablet TAKE 1 TABLET BY MOUTH TWICE DAILY FOR 7 DAYS active Not Available Not Available No t Available meloxicam 7.5 mg tablet TAKE 1 TABLET BY MOUTH ONCE DAILY active Not Available Not Available No t Available estradiol 1 mg tablet Take 1 tablet by mouth daily active Not Available Not Available No t Available diclofenac sodium 75 mg tablet,zeeshan kinney release 04/01 completed Not Available Not Available Not Available estradiol 0.5 mg tablet TAKE 1 TABLET BY MOUTH ONCE DAILY active Not Available Not Available No t Available estradiol 0.01% (0.1 mg/gram) vaginal cream 04/01 completed Not Available Not Available Not Available methylpredn isolone 4 mg tablets in a dose pack USE DIRECTED 06/12 completed Not Available Not Available Not Available albuterol sulfate HFA 90 mcg/actuati on aerosol inhaler INHALE 2 PUFFS BY MOUTH EVERY 4 HOURS NEEDED FOR WHEEZING active Not Available Not Available No t Available fluoxetine 20 mg capsule TAKE 1 CAPSULE BY MOUTH ONCE DAILY active Not Available [...] completed Not Available Not Available Not Available omega-3 acid ethyl esters 1 gram capsule TAKE 1 CAPSULE BY MOUTH THREE TIMES DAILY active Not Available Not Available No t Available Fish Oil 1,000 mg (120 mg-180 mg) capsule Take 1 capsule 3 times a day by oral route for 90 days. 2024 active Not Available Not Available Not Avai lable omega3 300 mg-dha,epa 250 mg-other omega 3s-fish oil 1,000 mg capsule TAKE 1 CAPSULE BY MOUTH THREE TIMES DAILY 2024 active Not Available Not Available Not Avai lable omega-3 300 mg-dha 120 mg-epa 180 mg-fish oil 1,000 mg capsule TAKE 1 CAPSULE BY MOUTH THREE TIMES DAILY active Not Available Not Available No t Available Vitals Date Recorded Body height Body mass index (BMI) Body weight Heart rate Oxygen saturation Oxygen saturation in Arterial blood by Pulse oximetry Systolic And Diastolic Provider Name and Address Organization Details Last Updated DateTime 5 152.4 cm 35.6 kg/m2 26365.2 5 g 103 /min 96 % 96 % 138/82 mm[Hg] Michela Mondragon MA [place] - [facility] 5 16:37:36 Date Recorded Body height Body mass index (BMI) Body weight Heart rate Oxygen saturation Oxygen saturation in Arterial blood by Pulse oximetry Systolic And Diastolic Provider Name and Address Organization Details Last Updated DateTime 4 152.4 cm 35.7 kg/m2 62317.4 g 71 /min 97 % 97 % 130/84 mm[Hg] Anu Zamora MA [facility] 4 16:20:48 Date Recorded Body height Body mass index (BMI) Body weight Heart rate Oxygen saturation Oxygen saturation in Arterial blood by Pulse oximetry Systolic And Diastolic Provider Name and Address Organization Details Last Updated DateTime 5 152.4 cm 32.7 kg/m2 25117.7 2 g 82 /min 98 % 98 % 128/64 mm[Hg] Agne Ruiz MA [facility] 5 16:08:16 Date Recorded Body height Body mass index (BMI) Body weight Heart rate Oxygen saturation Oxygen saturation in Arterial blood by Pulse oximetry Systolic And Diastolic Provider Name and Address Organization Details Last Updated DateTime 4 152.4 cm 34.8 kg/m2 60517.5 2 g 88 /min 98 % 98 % 110/74 mm[Hg] Anu Zamora MA [facility] 4 17:17:46 Social History Question Answer Notes LastModified by Organizat ion Details LastModified Time Tobacco Smoking Status Never Smoker Seng Arrington MA [facility] 12/13/2023 17:09:34 Do You Have An Advance Directive? No Information n ot available 12/13/2023 Are You Blind Or Do [...] No Information not available 06/12/2024 Are You Deaf Or Do You Have Serious Difficulty Hearing? No Information not available 12/13/2023 What Type Of Diet Are You Following? REGULAR Information n ot available 12/13/2023 Are There Any Guns Present In Your Home? No Information not available 12/13/2023 What Was The Date Of Your Most Recent Tobacco Screening? 06/17/2025 Information not available 06/17/2025 What Is Your Relationship Status? Single Information not available 12/13/2023 Do You Use Your Seat Belt Or Car Seat Routinely? Yes Information not available 12/13/2023 Do You Have Smoke And Carbon Monoxide Detectors In Your Home? Yes Information not available 12/13/2023 Do You Use Sunscreen Routinely? No Information not available 12/13/2023 Has Tobacco Cessation Counseling Been Provided? No Information not available 06/17/2025 On What Date Was Tobacco Cessation Counseling Provided? 06/17/2025 Information not available 06/17/2025 Sex: Female Functional Status Question Answer Note LastModified by Organizat ion Details LastModified Time Do you use any illicit or recreational drugs? No Information not available 12/13/2023 Do you or have you ever used any other forms of tobacco or nicotine? No Information not available 12/13/2023 What is your level of alcohol consumption? Occasional Information not available 12/13/2023 Are you currently employed? Yes Information not available 06/12/2024 Are you able to care for yourself independently? Yes Information not available 12/13/2023 What is your exercise level? None Information not available 12/13/2023 Mental Status Question Answer Note LastModified by Organization D etails LastModified Time Do you feel stressed (tense, restless, nervous, or anxious, or unable to sleep at night)? [id number] Information not available 12/13/2023 Family History Relationship Description Onset Age of [...] Skin Problems N Anemia N Heart Attack ([place]) N Anxiety Disorder N Diabetes Y Muscle, [...] e and Address Organization Details Recorded Time Influenza, recombinant, quadrivalent, PF 2 completed Char Campbell MA null, [place] [...] PF, 30 mcg/0.3 mL dose 3 completed ALISON King, [place] - [facility] 08/14/2024 13:15:38 pneumococcal polysaccharide [...] [place] [facility] 08/14/2024 13:15:38 Influenza, recombinant, trivalent, PF 4 completed Not Available [facility] 06/17/2025 15:52:32 COVID-19, mRNA, LNP-S, PF, rafael-sucrose, 30 mcg/0.3 mL 4 completed Not Available [facility] 06/17/2025 15:52:32 Pneumococcal conjugate PCV21, polysaccharide GUB014 conjugate, PF 5 completed Not Available [facility] 06/17/2025 15:52:32 Past Encounters Encounter ID Performer Location Encounter Start Date Encounter Closed Date Diagnosis/Indication Diagnosis SNOMED-CT Code Diagnosis ICD10 Code Diagnosis IMO Codes Diagnosis Note [id number] MD Ann Marie Figueroa (Adult Med) [address] [place] [phone] 12/13/2023 16:27:33 12/13/2023 18:00:36 Type 2 diabetes mellitus 67712386 E11.9 Hyperlipidemia 17753450 E78.5 Screening for malignant neoplasm of colon 871411095 Z12.11 Essential hypertension 30295871 I10 [id number] Marilu Santillan MD [facility] [employer] [address] [place] [phone] 04/01/2024 14:53:55 04/01/2024 15:45:09 Vertigo 548810312 R42 Obesity 326877450 E66.8 [id number] MD Ann Marie Figueroa (Adult Med) [address] [place] [address] [phone] 06/12/2024 16:02:03 06/12/2024 17:49:51 Obesity 924787006 E66.8 Essential hypertension 33414486 I10 Hyperlipidemia 09834653 E78.5 Type 2 arsalan betes mellitus 88373798 E11.9 [id number] Marilu Santillan MD [facility] [employer] [address] [place] [address] [id number] 08/12/2024 16:33:27 08/12/2024 17:56:11 Body mass index 30+ - obesity 683127380 Z68.34 Obesity 049619563 E66.9 Pre-surger y evaluation 128625656 Z01.818 Essential hypertension 62247583 I10 Hyperlipidemia 88226310 E78.5 Type 2 arsalan betes mellitus 14163722 E11.9 [id number] MD Ann Marie Figueroa (Adult Med) [address] [place] [address] [phone] 08/23/2024 09:40:24 08/23/2024 10:17:18 Type 2 diabetes mellitus 79510649 E11.9 [id number] MD Ann Marie Figueroa (Adult Med) [address] [place] [address] [phone] 12/10/2024 16:14:18 12/11/2024 09:22:54 Body mass index 30+ - obesity 959922440 Z68.35 Obesity 363588354 E66.9 Essential hypertension 52748221 I10 Type 2 arsalan betes mellitus 99069688 E11.9 Hyperlipidemia 91745008 E78.5 Insomnia 450686549 G47.0 0 [id number] Marilu [facility]illan [facility] [address] [place] [phone] 06/17/2025 15:51:18 06/17/2025 17:18:35 Obese class I 8457510794 50588 E66.811 E66.3 8146415333 BMI 32.7 Abdominal pain 67233479 R10.9 83607017 Diarrhea 23510161 R19.7 05323294 Health Concerns Section Related Observation LastModified by Organization Detai ls LastModified Time None Recorded Concern Status LastModified by Organization Details LastModified Time None Recorded Advance Directives Directive N: Payers Insurance Date Sequence Insurance Name Policy Number Policy Krishna Covered Member ID Krishna Member ID Guarantor Name 08/15/2024 KAYLA Mauro 06/14/2025 1 [facility] ([facility] [id number] Conchita Mauro [id number] Conchita Mauro Notes Date Note Type Note Provider Name and Address Organization Details Recorded Time 06/12/2024 text/html hypertension no headache or dizziness. Hyperlipidemia taking atorvastatin trying to watch red meat. Diabetes no polyphagia no polydipsia. She was lifting some boxes last week popliteus shoulder and seeing company ducts Marilu Santillan MD Attn: Accounting, [address] [place], [address], [facility] 06/15/2024 22:47:45 08/12/2024 text/html going to have shoulder surgery. Hypertension no chest pain headache or dizziness diabetes no polyphagia polydipsia hypoglycemia hyperlipidemia does try to follow a low-fat diet Marilu Santillan MD Attn: Accounting, [address] [facility] [place], [address], [facility] 08/14/2024 23:05:35 12/10/2024 text/html she has been feeling fine there has not been any problems referable to a diabetes trying to follow her diet for her dyslipidemia her blood pressure has been controlled interval history she did have her left shoulder surgery and she is recuperating nicely. Struggling with some insomnia [id number] preps not helpful Marilu Santillan MD Attn: Accounting,[address], [place], [address], [facility] 12/10/2024 23:04:33 OBGyn Episode No OBEpisode recorded.
--- OUTSIDE RECORDS SUMMARY | 2025-07-03 16:01 | XMS_ITS | Clinical Summary ---
Author Organization [facility] Address [address] [place] [address] Phone Care Team Providers Care Operations Vice President Name Role Phone MARILU ELIAS D.O Unavailable [phone] Reason for Visit and Chief Complaint CHART [...] 02/17/2011 9:51AM By EDUARDO STAFFORD ; [facility] Past Medications on file Ortho-Cyclen (28) 0.25-35 MG-MCG OR TABS 02/17/2011 - 05/18/2011 Provider: SANAM NEVAREZ NP-BC Diagnosis: Last Documented On 1 10:04AM By SANAM COBB RANI- ; [facility] Ibuprofen 800 MG OR TABS 02/17/2011 - 03/19/2011 Provi shelia: SANAM BLOCK-BC Diagnosis: Last Documented On 1 10:04AM By SANAM COBB CALVIN ; [facility] Ortho-Cyclen (28) 0.25-35 MG-MCG OR TABS 02/11/2010 - 02/06/2011 Provider: SANAM NEVAREZ NP-BC Diagnosis: Last Documented On 0 11:04AM By SANAM COBB CALVIN ; 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 Sexually active with 1 partners in the l ast year 10/22/2009 Last Documented On 0 10:18AM ; [facility] Alcohol 10/22/2009 Last Documented On 0 10:18AM ; [facility] Caffeine use 10/22/2009 Last Documented On 0 10:18AM ; [facility] Daily tea consumption was four cups per day 10/22/2009 Last Documented On 0 10:18AM ; [facility] Drug use by a sexual partner does not in clude intravenous drug use 10/22/2009 Last Documented On 0 10:18AM ; [facility] Educational level: grade 10/22/2009 Last Documented On 0 10:18AM ; [facility] In grade 13-16 (college) 10/22/2009 Last Documented On 0 10:18AM ; [facility] Marital history 10/22/2009 Last Documented On 0 10:18AM ; [facility] Partner has not had a STD in the past ye ar 10/22/2009 Last Documented On 0 10:18AM ; [facility] Patient does not report having sex when she didn't want to 10/22/2009 Last Documented On 0 10:18AM ; [facility] Patient has not had sex unde r the influence of alcohol or drugs in the last year 10/22/2009 Last Documented On 0 10:18AM ; [facility] Sexual history : painful intercourse Last Documented On 0 10:18AM ; [facility] Sexual partner has not had o ther partners while in relationship with patient 10/22/2009 Last Documented On 0 10:18AM ; [facility] Sexual partner has not had sex with pros titutes 10/22/2009 Last Documented On 0 10:18AM ; [facility] Sexually active 10/22/2009 Last Documented On 0 10:18AM ; [facility] The racial background 10/22/2009 Last Documented On 0 10:18AM ; [facility] The racial background is 10/22 Last Documented On 0 10:18AM ; [facility] Using condoms 10/22/2009 Last Documented On 0 10:18AM ; [facility] Smoking Status Unknown Procedures and Surgical History Includes: Procedures from this encounter Procedures Code Diagnosis Performing Provider Service L ocation Service Date history of hepatitis B vaccine Last Documented On 0 10:18AM ; [facility] Medical History Includes: Medical History addressed during this encounter Description Last Updated LMP: 200810/22/2009 Last Documented On 0 10:18AM ; [facility] A breast self-exam was performed 010 Last Documented On 0 10:18AM ; [facility] A Pap smear was performed 10/22/2009 Last Documented On 0 10:18AM ; [facility] An HIV test was not performed 10/22/2009 Last Documented On 0 10:18AM ; [facility] Chlamydia 10/22/2009 Last Documented On 0 10:18AM ; [facility] Last pap smear date 200810/22/2009 Last Documented On 0 10:18AM ; [facility] Oral contraceptives 10/22/2009 Last Documented On 0 10:18AM ; [facility] Previous hospitalizations [facility] IN 1998,POLYPECTOMY FROM UTERUS IN 200310/22/2009 Last Documented On 0 10:18AM ; [facility] Previously diagnosed with a STD 10/22/19 10 Last Documented On 0 10:18AM ; [facility] Taking OTC medications ASPIRIN 0 Last Documented On 0 10:18AM ; [facility] Family History Includes: Family History addressed during this encounter Description Last Updated Family history of Diabetes 10/22/2009 Last Documented On 0 10:18AM ; [facility] Review of Systems Includes: [...] Check-Out Time Diagnosis CHART UPDATE SANAM COBB [facility] SALVAGE CUTTER 0 10:08AM 11:59PM Clinical Notes Includes: Clinical Notes from this encounter No Clinical Notes Recorded
== END 2025-07-03 15:57 | disposition home or self-care (01) ==
LOC: ANHFOHIMG 15:57
PROVIDERS: PCP Internal Medicine; Visit Provider Obstetrics & Gynecology
DX: Z12.31 Encounter for screening mammogram for malignant neoplasm of breast (principal); R92.8 Other abnormal and inconclusive findings on diagnostic imaging of breast
CPT/HCPCS: 77063; 77067

== ENCOUNTER 2025-07-08 07:39 | Outpatient (CLI) | payer OTHER, SELFPAY ==
--- OUTSIDE RECORDS SUMMARY | 1999-10-01 19:00 | XMS_ITS | Continuity of Care Document ---
Author Organization [facility] Address [address] [place] [address] Phone Care Team Providers Care Solutions Operator Name Role Phone No Information Unavailable Unavailable Medications Medication Instructions Dosage Effective Dates (start - stop) Status Comments No Drug Therapy Prescribed Advance Directives Directive Yes / No Effective Date File Name No Information Encounters Encounter Description Practice Location Reason(s) For Visit Diagnoses Date Provider Providers Copied on Encounter [facility], [address] [place] [address], [id number], [place] tel:[phone] No Information No Information Family History Family Member Type Diagnosis Age At Onset No Information Payers Payer name Insurance type Covered green party ID Authoriza tion(s) No Information Social History [...]
--- NOTE | ~2025-07-08 | CT_ITS ---
EXAMINATION: CT abdomen pelvis w con DATE: 07/08/2025 08:41 INDICATION: Abdominal pain. TECHNIQUE: Computed tomography (CT) of the abdomen and pelvis was performed with 100 mL Omnipaque 350 intravenous contrast. Automated exposure control and iterative reconstruction technique were employed. The dose-length product was 689.66 mGy-cm. COMPARISON: None. FINDINGS: The visualized portions of lung bases demonstrate mild atelectasis. No pleural effusion. The heart size is normal. No pericardial effusion. There is diffuse hepatic steatosis. Calcifications in the spleen are consistent with old granulomatous disease. The gallbladder is absent. The pancreas, adrenal glands, and left kidney are normal. There is a 3 mm stone in right kidney. There are no dilated loops of bowel. The appendix is normal. There are no pathologically enlarged lymph nodes. There is no free intraperitoneal fluid. There is moderate thoracic spondylosis. There is severe lower lumbar spondylosis. IMPRESSION: 1. Diffuse hepatic steatosis. Reviewed, dictated and finalized at location E.
--- OUTSIDE RECORDS SUMMARY | 2025-07-08 07:43 | XMS_ITS | Clinical Summary ---
Author Organization [facility] Address [facility] [place] [address] Care Team Providers Care Schedule Planning Manager Name Role Phone Lewis Santillan DO Primary Care Provider [phone] Allergies No known active allergies Medications atorvastatin [...] CDT - 06/10/2025 8:[address] [facility] Emergency Room [address] [place] [id number] Anderson Arroyo DO [place], [place], [...] 2025 09/16/2023, 08/13/2022, 08/17/2021, Additional history exists Influenza Adult (#1) 2025 08/07/2023, 07/26/2022, 06/30/2020, Additional history exists DTaP, Tdap and Td [...] COLOR (U) YELLOW 06/10/2025 5:06 PM CDT [facility] TRANSPARENCY HAZY 06/10/2025 5:06 PM CDT [facility] SPECIFIC GRAVITY (U) >1.030(H) 1.000 - 1.030 06/10/2025 5:06 PM CDT [facility] U PH 6.0 5.0 - 9.0 06/10/2025 5:06 PM CDT [facility] LEUKOCYTES (U) 1+(A) NEGATIVE 06/10/2025 5:06 PM CDT [facility] NITRITES POSITIVE(A) NEGATIVE 06/10/2025 5:06 PM CDT [facility] PROTEIN RANDOM (U) TRACE(A) NEGATIVE 06/10/2025 5:06 PM CDT [facility] GLUCOSE (U) TRACE(A) NEGATIVE 06/10/2025 5:06 PM CDT [facility] KETONES MG/DL (U) TRACE(A) NEGATIVE 06/10/2025 5:06 PM CDT [facility] BILIRUBIN (U) NEGATIVE NEGATIVE 06/10/2025 5:06 PM CDT [facility] BLOOD (U) TRACE(A) NEGATIVE 06/10/2025 5:06 PM CDT [facility] WBC/HPF 10-25 0 - 5 /HPF 06/10/2025 5:06 PM CDT [facility] RBC/HPF 0-5 0 - 5 /HPF 06/10/2025 5:06 PM CDT [facility] EPI/HPF FEW /HPF 06/10/2025 5:06 PM CDT [facility] BACTERIA (U) MODERATE /HPF 06/10/2025 5:06 PM CDT [facility] URINE SPECIMEN OBTAINED BY CLEAN CATCH PROCEDURE / Unknown 06/10/2025 4:46 PM CDT us Anderson Arroyo DO URINE ORDERABLES Final Result [facility] [address] [place] [address], [place] [phone] * (ABNORMAL) COMPREHENSIVE METABOLIC PANEL (06/10/2025 4:46 PM CDT) GLUCOSE 232(H) 70 - 99 MG/DL 06/10/2025 5:11 PM [facility] BUN 9 7 - 18 MG/DL 06/10/2025 5:11 PM [facility] CREATININE S/P/B 0.74 0.55 - 1.02 MG/DL 06/10/2025 5:11 PM [facility] SODIUM S/P/B 138 136 - 145 MMOL/L 06/10/2025 5:11 PM [facility] POTASSIUM S/P/B 3.7 3.5 - 5.1 MMOL/L 06/10/2025 5:11 PM [facility] CHLORIDE S/P/B 100 100 - 108 MMOL/L 06/10/2025 5:11 PM [facility] CO2 25.5 21 - 32 MMOL/L 06/10/2025 5:11 PM [facility] CALCIUM S/P/B 9.5 8.5 - 10.1 MG/DL 06/10/2025 5:11 PM [facility] BILIRUBIN TOTAL S/P/B 2.2(H) 0.2 - 1.2 MG/DL 06/10/2025 5:11 PM [facility] TOTAL PROTEIN S/P/B 7.6 6.4 - 8.2 G/DL 06/10/2025 5:11 PM [facility] ALBUMIN S/P/B 4.1 3.4 - 5.0 G/DL 06/10/2025 5:11 PM [facility] AST 38(H) 15 - 37 U/L 06/10/2025 5:11 PM [facility] ALT 43 14 - 55 U/L 06/10/2025 5:11 PM [facility] ALKALINE PHOSPHATASE S/P/B 118 50 - 136 U/L 06/10/2025 5:11 PM CDT [facility] ANION GAP 12.5 5 - 15 MMOL/L 06/10/2025 5:11 PM CDT [facility] BUN CREATININE RATIO 12.2 6 - 26 06/10/2025 5:11 PM CDT [facility] A/G RATIO 1.2 1.0 - 2.0 RATIO 06/10/2025 5:11 PM CDT [facility] GFR ESTIMATE >90 >90 ML/MIN/1.7 3 M2 06/10/2025 5:11 PM CDT [facility] Comment: NOTE: eGFR is not calculated for patients <18 years of age. This is an estimated GFR calculation using the new CKD EPI creatinine equation without race and so does not require a correction factor for race. This estimated GFR should not be used for calculating drug doses. 06/10/2025 4:46 PM CDT Anderson Arroyo DO LABORATORY Final Result [facility] [address] [place] [address], * (ABNORMAL) CBC W/DIFF AUTOMATED (06/10/2025 4:46 PM CDT) WBC 6.92 4.4 - 11.0 x10'3/uL 06/10/2025 4:55 PM CDT [facility] RBC 4.56 4.50 - 5.10 x10'6/uL 06/10/2025 4:55 PM CDT [facility] HGB 12.6 12.3 - 15.3 G/DL 06/10/2025 4:55 PM CDT [facility] HCT 38.0 35.9 - 44.6 % 06/10/2025 4:55 PM CDT [facility] MCV 83.3 80.0 - 96.0 FL 06/10/2025 4:55 PM CDT [facility] MCH 27.6 25.3 - 30.9 PG 06/10/2025 4:55 PM CDT [facility] MCHC 33.2 31.0 - 34.1 G/DL 06/10/2025 4:55 PM CDT [facility] RDW 13.0 12.4 - 15.1 % 06/10/2025 4:55 PM CDT [facility] PLT 182 151 - 353 x10'3/uL 06/10/2025 4:55 PM T [facility] MPV 10.8 9.6 - 12.0 FL 06/10/2025 4:55 PM CDT [facility] RBC MORPHOLOGY NORMAL 06/10/2025 4:55 PM T [facility] PLT MORPH. NORMAL 06/10/2025 4:55 PM CDT [facility] WBC MORPHOLOGY NORMAL 06/10/2025 4:55 PM T [facility] LYMPHOCYTES % 20.2 15.8 - 45.0 % 06/10/2025 4:55 PM CDT [facility] NEUTROPHILS % 74.3(H) 42.1 - 71.9 % 06/10/2025 4:55 PM CDT [facility] MONOCYTES % 4.5(L) 5.7 - 12.5 % 06/10/2025 4:55 PM CDT [facility] EOSINOPHILS 0.3 0.0 - 5.6 % 06/10/2025 4:55 PM CDT [facility] BASOPHILS 0.3 0.0 - 1.3 % 06/10/2025 4:55 PM CDT [facility] ABS. NEUTROPHILS 5.14 1.40 - 6.00 x10'3/uL 06/10/2025 4:55 PM CDT [facility] IMMATURE GRANS % 0.4 0.0 - 0.5 % 06/10/2025 4:55 PM CDT [facility] ABS. LYMPHOCYTES 1.40 0.80 - 4.70 x10'3/uL 06/10/2025 4:55 PM CDT [facility] 06/10/2025 4:46 PM CDT Anderson Arroyo DO LABORATORY Final Result Performing Organization Address City/[facility]/ZIP Co de Phone Number [facility] [address] [place] [address], [place] [phone] * (ABNORMAL) MAGNESIUM (06/10/2025 4:46 PM CDT) MAGNESIUM 1.5(L) 1.8 - 2.4 MG/DL 06/10/2025 5:11 PM CDT [facility] 06/10/2025 4:46 PM CDT Anderson Arroyo DO LABORATORY Final Result Performing Organization Address City/[facility]/ZIP Co de Phone Number [facility] [address] [place] [address], [place] [phone] * (ABNORMAL) POCT glucose (06/10/2025 3:27 PM CDT) GLUCOSE POC 194(H) 70 - 110 mg/dL 06/10/2025 3:39 PM CDT [facility] 06/10/2025 3:27 PM CDT Attending Physician Emergency MD POCT ORDERABLES - DEVICE Final Result [facility] [address] [place] [address], from Last [address] [facility] Care Teams Schedule Planning Manager Relationship Specialty Start Date End Date Lewis Santillan DO [address] [place] [address] PCP - General FAMILY PRACTICE 02/07/19
--- OUTSIDE RECORDS SUMMARY | 2025-07-08 07:43 | XMS_ITS | Encounter Summary ---
Author Organization [facility] Address [facility] [place] [address] Care Team Providers Care Maintenance Of Way Clerk Name Role Phone Lewis Santillan DO Primary Care Provider [phone] Encounter Details Date Type Department Care Team (Late st Contact Info) Description 04/01/2019 Prep for Procedure [facility] [id number] [place] [address] [phone] Linda Mcnamara MD [facility] [address] [address] Social History Tobacco Use Types Packs/Day Years [...] ABO/RH O POSITIVE 04/01/2019 6:21 PM CDT [facility] () [facility] ANTIBODY SCREEN NEGATIVE 9 6:21 PM CDT [facility] SAMPLE EXPIRATION 04/08/2019 04/01/2019 6:21 PM CDT [facility] 04/01/2019 3:51 PM CDT Linad Mcnamara MD BLOOD BANK TEST ORDERABLES F inal Result Performing Organization Address [facility] Co de Phone Number [facility] [address] [place] [address], [place] [phone] * MRSA SCREENING (04/01/2019 3:51 PM CDT) SPEC DESCRIPTION NASAL 04/01/2019 3:50 PM CDT [facility] SPECIAL REQUESTS NO SPECIAL REQUEST 04/01/2019 3:50 PM CDT [facility] CULTURE RESULT NO MRSA ISOLATED 04/02/2019 9:39 PM CDT [facility] SPECIMEN FROM INTERNAL NOSE / Unknown 04/01/2019 3:51 PM CDT 04/01/2019 4:09 PM CDT Linda Mcnamara MD MICROBIOLOGY - GENERAL ORDER ETHAN Final Result Performing Organization Address [facility] Co de Phone Number [facility] [address] [place] [address], [place] [phone] * (ABNORMAL) HEPATIC FUNCTION PANEL (04/01/2019 3:51 PM CDT) TOTAL PROTEIN S/P/B 6.8 6.4 - 8.2 G/DL 04/01/2019 4:27 PM CDT [facility] ALBUMIN S/P/B 3.6 3.4 - 5.0 G/DL 04/01/2019 4:27 PM CDT [facility] BILIRUBIN TOTAL S/P/B 1.6(H) 0.2 - 1.2 MG/DL 04/01/2019 4:27 PM CDT [facility] BILIRUBIN DIRECT S/P/B 0.3(H) 0.0 - 0.20 MG/DL 04/01/2019 4:27 PM T [facility] BILIRUBIN INDIRECT S/P/B 1.3(H) 0.0 - 0.9 MG/DL 04/01/2019 4:27 PM CDT [facility] ALKALINE PHOSPHATASE S/P/B 90 50 - 136 U/L 04/01/2019 4:27 PM T [facility] AST 13(L) 15 - 37 U/L 04/01/2019 4:27 PM CDT [facility] ALT 22 14 - 55 U/L 04/01/2019 4:27 PM CDT [facility] A/G RATIO 1.1 1.0 - 2.0 RATIO 04/01/2019 4:27 PM T [facility] 04/01/2019 3:51 PM CDT us Linda Mcnamara MD LABORATORY Final Result [facility] [address] [place] [address], [place] [phone] * PLATELET FUNCTION ASSAY (04/01/2019 3:51 PM CDT) EPINEPHRINE (PLT FUNCT) 152 80 - 184 SEC 04/01/2019 4:26 PM CDT [facility] COLLAGEN / ADP COL/ADP NOT NEEDED. 56 - 102 SEC 04/01/2019 4:26 PM T [facility] Comment: NORMAL COLLAGEN/EPI INDICATES NORMAL PLATELET FUNCTION. 04/01/2019 3:51 PM CDT us Linda Mcnamara MD LABORATORY Final Result [facility] [address] [place] [address], [place] [phone] * (ABNORMAL) BASIC METABOLIC PANEL (04/01/2019 3:51 PM CDT) [facility] GLUCOSE 101(H) 70 - 99 MG/DL 04/01/2019 4:27 PM CDT [facility] BUN 11 7 - 18 MG/DL 04/01/2019 4:27 PM CDT [facility] CREATININE S/P/B 0.75 0.55 - 1.02 MG/DL 04/01/2019 4:27 PM T [facility] SODIUM S/P/B 137 136 - 145 MMOL/L 04/01/2019 4:27 PM CDT [facility] POTASSIUM S/P/B 3.6 3.5 - 5.1 MMOL/L 04/01/2019 4:27 PM CDT [facility] CHLORIDE S/P/B 102 100 - 108 MMOL/L 04/01/2019 4:27 PM T [facility] CO2 27.6 21 - 32 MMOL/L 04/01/2019 4:27 PM T [facility] CALCIUM S/P/B 9.1 8.5 - 10.1 MG/DL 04/01/2019 4:27 PM T [facility] ANION GAP 7.4 5 - 15 MMOL/L 04/01/2019 4:27 PM T [facility] BUN CREATININE RATIO 14.7 6 - 26 04/01/2019 4:27 PM T [facility] EGFR NON-AFR. AMER. >90 >90 ML/MIN/1.7 3 M2 04/01/2019 4:27 PM CDT [facility] EGFR AFR. AMER. >90 >90 ML/MIN/1.7 3 M2 04/01/2019 4:27 PM CDT [facility] Comment: NOTE: eGFR is not calculated for patients <18 years of age. This is an estimated GFR (CKD EPI) and should not be used for calculating drug doses. 04/01/2019 3:51 PM CDT us Linda Mcnamara MD LABORATORY Final Result [facility] [address] [place] [address], [place] [phone] * (ABNORMAL) CBC W/DIFF AUTOMATED (04/01/2019 3:51 PM CDT) WBC 7.2 4.4 - 11.0 x10'3/uL 04/01/2019 4:41 PM CDT [facility] RBC 4.10(L) 4.50 - 5.10 x10'6/uL 04/01/2019 4:41 PM CDT [facility] HGB 11.8(L) 12.3 - 15.3 G/DL 04/01/2019 4:41 PM CDT [facility] HCT 35.8(L) 35.9 - 44.6 % 04/01/2019 4:41 PM CDT [facility] MCV 87.3 80.0 - 96.0 FL 04/01/2019 4:41 PM CDT [facility] MCH 28.8 25.3 - 30.9 PG 04/01/2019 4:41 PM CDT [facility] MCHC 33.0 31.0 - 34.1 G/DL 04/01/2019 4:41 PM CDT [facility] RDW 12.3(L) 12.4 - 15.1 % 04/01/2019 4:41 PM [facility] PLT 201 151 - 353 x10'3/uL 04/01/2019 4:41 PM T [facility] MPV 11.0 9.6 - 12.0 FL 04/01/2019 4:41 PM T [facility] RBC MORPHOLOGY NORMAL 04/01/2019 4:41 PM [facility] PLT MORPH. NORMAL 04/01/2019 4:41 PM T [facility] WBC MORPHOLOGY NORMAL 04/01/2019 4:41 PM T [facility] LYMPHOCYTES % 35.3 15.8 - 45.0 % 04/01/2019 4:41 PM [facility] NEUTROPHILS % 56.5 42.1 - 71.9 % 04/01/2019 4:41 PM T [facility] MONOCYTES % 7.2 5.7 - 12.5 % 04/01/2019 4:41 PM [facility] EOSINOPHILS 0.4 0.0 - 5.6 % 04/01/2019 4:41 PM T [facility] BASOPHILS 0.3 0.0 - 1.3 % 04/01/2019 4:41 PM [facility] ABS. NEUTROPHILS TOTAL 4.06 1.40 - 6.00 x10'3/uL 04/01/2019 4:41 PM T [facility] IMMATURE GRANS % 0.3 0.0 - 0.5 % 04/01/2019 4:41 PM [facility] ABS. LYMPHOCYTES 2.54 0.80 - 4.70 x10'3/uL 04/01/2019 4:41 PM [facility] 04/01/2019 3:51 PM CDT us Linda Mcnamara MD LABORATORY Final Result [facility] [address] [place] [address], documented in this encounter Visit Diagnoses Diagnosis Pre-op exam- Primary Preoperative examination, unspecified documented in this encounter Care Teams Maintenance Of Way Clerk Relationship Specialty Start Date End Date Lewis Santillan DO [address] [place] [address] PCP - General FAMILY PRACTICE 02/07/19 documented as of this encounter
[2025-07-08 08:40] LABS: Estimated Glomerular Filt Rate > 60
== END 2025-07-08 07:40 | disposition home or self-care (01) ==
PROVIDERS: PCP Internal Medicine; Visit Provider Internal Medicine
DX: R10.9 Unspecified abdominal pain (principal); K76.0 Fatty (change of) liver, not elsewhere classified
CPT/HCPCS: 74177; Q9967